=== PATIENT | male | born 1945 | race Caucasian/White ===

== ENCOUNTER 2016-09-09 17:37 | Emergency (ER) | payer MEDICARE, OTHER ==
[~2016-09-09 17:37] MED LIST: ACET325T9 PO; ASPI325T11 PO; ASPI325T70 PO; ATOR40TA PO; BISA5TAB4 PO; BUPR100T6 PO; CETI10TA22 PO; CHOL10003 PO; CLOP75TA57 PO; DIPH25CA58 PO; DIVA125C PO; DIVA125C3 PO; ESOM40CA PO; ESOM40SU PO; FLUT1DIS3 IH; FURO-68 PO; INSU100C4 SQ; INSU100V13 SQ; IPRA3AMP NEB; IPRA3AMP23 IH; LEVO50TA5 PO; MAGN400T22 PO; METO2.5T PO; METO2.5T5 PO; METO5TAB55 PO; MIRT15TA2 PO; MONT10TA9 PO; MULT-245 PO; NA P133E2 RC; NEOM1PAC TP; NITR0.4T22 SL; NYST1POW2 TOP; OMEG1CAP6 PO; ONDA4TAB12 PO; POLY17PO29 PO; POTA10TA12 PO; POTA20TA12 PO; POTA20TA4 PO; POTASSIUM CHLO10 MEQ PO; RANI150T6 PO; RIVA20TA2 PO; SENN8.6C2 PO; SPIR25TA3 PO; TRAM50TA PO; WARF2TAB7 PO; WARF4TAB7 PO; ZINC30OI TP
[2016-09-09] MEDS ORDERED: IV NORMAL SALINE 1000ML BAG 1,000 ML IV SCH (18:30)
[2016-09-09] MEDS ORDERED: KETOROLAC TROMETHAMINE 30 MG/ML INJ. IV ONE (18:30)
[2016-09-09] MEDS ORDERED: ONDANSETRON PF 4 MG/2 ML VIAL. IV ONE (18:30)
[2016-09-09] MEDS ORDERED: IOHEXOL 300 MG/ML 75 ML VIAL IV ONE (19:45)
[2016-09-09] MEDS ORDERED: CONTRAST GIVEN MC PRN (19:45)
[2016-09-09 20:00] VITALS: BP 126/57
--- NOTE | 2016-09-09 20:42 | PHYS DOC ---
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 Patient states he is asymptomatic he has no pain nor does he have any evidence of black or bloody stool. Patient has no nausea vomiting diarrhea or discomfort of any type. He does not feel he needs any workup I would like to follow up with his primary care doctor Review of Systems Review of Systems Constitutional: Denies fever or chills [] Eyes: Denies change in visual acuity, redness, or eye pain [] HENT: Denies nasal congestion or sore throat [] Respiratory: Denies cough or shortness of breath [] Cardiovascular: No additional information not addressed in HPI [] GI: Denies abdominal pain, nausea, vomiting, bloody stools or diarrhea [] : Denies dysuria or hematuria [] Musculoskeletal: Denies back pain or joint pain [] Integument: Denies rash or skin lesions [] Neurologic: Denies headache, focal weakness or sensory changes [] Endocrine: Denies polyuria or polydipsia [] Current Medications Current Medications Current Medications Medications (Trade) Dose Ordered Sig/Vivienne Start Time Stop Time Status Last Admin Dose Admin Info (Do NOT chart on this entry -- for MONITORING) 1 each PRN DAILY PRN 09/09/16 19:45 09/11/16 19:44 Iohexol (Omnipaque 300 Mg/ml) 75 ml 1X ONCE 09/09/16 19:45 09/09/16 19:46 DC Ketorolac Tromethamine (Toradol) 30 mg 1X ONCE 09/09/16 18:30 09/09/16 18:31 DC Ondansetron HCl (Zofran) 4 mg 1X ONCE 09/09/16 18:30 09/09/16 18:31 DC Sodium Chloride 1,000 ml @ 1,000 mls/hr Q1H 09/09/16 18:30 Allergies Allergies Allergies Coded Allergies Type Severity Reaction Last Updated Verified Penicillins Allergy Intermediate Rash 06/25/16 Yes Physical Exam Physical Exam Alert well-appearing male minimally verbal as a baseline. He is communicative and cheerful and able to indicate that he has no discomfort. Patient has mild abdominal distention which he describes as normal for him. an extended abdominal exam is completely benign with normal bowel sounds no tenderness no mass or megaly. Patient has a dense right hemiplegia which is also his neurologic poststroke baseline Constitutional: Well developed, well nourished, no acute distress, non-toxic appearance. [] HENT: Normocephalic, atraumatic, bilateral external ears normal, oropharynx moist, no oral exudates, nose normal. [] Eyes: PERRLA, EOMI, conjunctiva normal, no discharge. [] Neck: Normal range of motion, no tenderness, supple, no stridor. [] Cardiovascular:Heart rate regular rhythm, no murmur [] Lungs & Thorax: Bilateral breath sounds clear to auscultation [] Abdomen: Bowel sounds normal, soft, no tenderness, no masses, no pulsatile masses. [] Skin: Warm, dry, no erythema, no rash. [] Back: No tenderness, no CVA tenderness. [] Extremities: No tenderness, no cyanosis, no clubbing, ROM intact, no edema. [] Neurologic: Alert and oriented X 3, normal motor function, normal sensory function, no focal deficits noted. [] Psychologic: Affect normal, judgement normal, mood normal. [] Current Patient Data Vital Signs Vital Signs Date Time Temp Pulse Resp B/P (MAP) Pulse Ox O2 Delivery O2 Flow Rate FiO2 09/09/16 18:42 98.9 91 21 109/62 (78) 96 Room Air 98.9 EKG EKG [] Radiology/Procedures Radiology/Procedures [] Course & Med Decision Making Course & Med Decision Making Pertinent Labs and Imaging studies reviewed. (See chart for details) Patient with mildly distended abdomen which appears to be his baseline. He is asymptomatic and would like to go back to the prison. Communications with the prison verified the patient is his own medical decision maker and that he is completely competent. Offered patient labs and a CT but he feels this is absolutely not indicated AC he is asymptomatic and is not sure why he was sent. Clinical or historical evidence of GI bleed. Vital signs unremarkable. Patient does not want a rectal exam at this time declines any further workup or intervention and would like to go home. Follow-up with your doctor tomorrow and return immediately for new severe or worsening symptoms [] Dragon Disclaimer Dragon Disclaimer This electronic medical record was generated, in whole or in part, using a voice recognition dictation system. Departure Departure Impression: Primary Impression: Abdominal distention Disposition: HOME, SELF-CARE Condition: GOOD Referrals: ORLANDO CHEEMA (PCP) Additional Instructions: Her abdomen is mildly distended but you have indicated that this is normal for you. As you have no abdominal pain or tenderness and by her description no evidence of gastrointestinal emergency or bleeding, no further workup or treatment is immediately indicated. We have offered U labs and a CAT scan for complete evaluation however you have indicated that you not want any testing or evaluation at this time and will follow up with your primary care doctor. Encourage you to return any time for reevaluation and further workup and treatment as needed. TALON PAIGE MD Sep 09, 2016 20:42
== END 2016-09-09 20:45 | disposition home or self-care (01) ==
LOC: ER 17:37
DX: R14.0 Abdominal distension (gaseous) (principal); F41.9 Anxiety disorder, unspecified; I25.10 Atherosclerotic heart disease of native coronary artery without angina pectoris; I11.0 Hypertensive heart disease with heart failure; I50.9 Heart failure, unspecified; E87.6 Hypokalemia; E11.9 Type 2 diabetes mellitus without complications; E78.00 Pure hypercholesterolemia, unspecified; F32.9 Major depressive disorder, single episode, unspecified; I73.9 Peripheral vascular disease, unspecified; J44.9 Chronic obstructive pulmonary disease, unspecified; K21.9 Gastro-esophageal reflux disease without esophagitis; Z86.73 Personal history of transient ischemic attack (TIA), and cerebral infarction without residual deficits; Z88.0 Allergy status to penicillin
CPT/HCPCS: 99284

== ENCOUNTER 2016-09-26 10:18 | Inpatient (IN) | payer MEDICARE, OTHER ==
[2016-09-26] VITALS (12 sets, daily range): BP systolic 90–117; BP diastolic 53–80
[~2016-09-26] VITALS: Ht 165.1 cm; Wt 85.3 kg
[2016-09-26] MEDS ORDERED: IV NORMAL SALINE 1000ML BAG 1,000 ML IV SCH (10:23)
[2016-09-26] MEDS ORDERED: ONDANSETRON PF 4 MG/2 ML VIAL. IV ONE (10:30)
--- NOTE | 2016-09-26 10:42 | PHYS DOC ---
Past Medical History Past Medical History: Anxiety, CAD, CHF, Constipation, COPD, CVA, Depression, Diabetes-Type II, Diverticulosis, GERD, High Cholesterol, Hypertension, Other Additional Past Medical Histor: internal hemorrhoids, ARF, hypokalemia, dysphagia, PVD, hemiplegia, Past Surgical History: Other Additional Past Surgical Histo: unknown Alcohol Use: None Drug Use: None Adult General Chief Complaint Chief Complaint: RECTAL BLEED HPI HPI Patient is a 70 year old male who presents with complaint of rectal bleeding. The patient started having blood in his stools yesterday evening. Patient brought to the emergency department by EMS from [facility]. Patient has history of CVA with chronic right-sided hemiplegia and A. fib currently on Pradaxa therapy. The patient denies any complaints. Upon evaluation at the nursing facility, the patient was found to have copious amounts of black tarry stool and patient was having increasing lethargy per staff. Patient denies any abdominal pain or chest pain at this time and patient has had no vomiting of blood. Review of Systems Review of Systems Constitutional: Denies fever or chills [] Eyes: Denies change in visual acuity, redness, or eye pain [] HENT: Denies nasal congestion or sore throat [] Respiratory: Denies cough or shortness of breath [] Cardiovascular: Denies chest pain [] GI: Bloody stools, denies abdominal pain, nausea, vomiting, or diarrhea [] : Denies dysuria or hematuria [] Musculoskeletal: Denies back pain or joint pain [] Integument: Denies rash or skin lesions [] Neurologic: Chronic right-sided hemiplegia [] Current Medications Current Medications Current Medications Medications (Trade) Dose Ordered Sig/Vivienne Start Time Stop Time Status Last Admin Dose Admin Ondansetron HCl (Zofran) 4 mg 1X ONCE 09/26/16 10:30 09/26/16 10:31 DC 09/26/16 10:51 4 MG Sodium Chloride 1,000 ml @ 1,000 mls/hr Q1H 09/26/16 10:23 09/26/16 11:22 DC 09/26/16 10:23 1,000 MLS/HR Allergies Allergies Allergies Coded Allergies Type Severity Reaction Last Updated Verified Penicillins Allergy Intermediate Rash 06/25/16 Yes Physical Exam Physical Exam Constitutional: Alert, afebrile, appears ill. [] HENT: Normocephalic, atraumatic, bilateral external ears normal, oropharynx moist, no oral exudates, nose normal. [] Eyes: PERRLA, EOMI, conjunctiva normal, no discharge. [] Neck: Normal range of motion, no tenderness, supple, no stridor. [] Cardiovascular: Tachycardia, regular rhythm, no murmur [] Lungs & Thorax: Bilateral breath sounds clear to auscultation [] Abdomen: Bowel sounds normal, soft, no tenderness, no masses, no pulsatile masses. Rectal: Copious melanotic stools present, nontender on exam, no gross blood present [] Skin: Warm, dry, no erythema, no rash. [] Back: No tenderness, no CVA tenderness. [] Extremities: No tenderness, no cyanosis, no clubbing, ROM intact, no edema. [] Neurologic: Alert and oriented X 3, right-sided spastic hemiplegia. [] Current Patient Data Vital Signs Vital Signs Date Time Temp Pulse Resp B/P (MAP) Pulse Ox O2 Delivery O2 Flow Rate FiO2 09/26/16 10:20 98.5 94 22 84/74 (77) 95 Room Air 98.5 Lab Values Laboratory Tests Test 09/26/16 10:32 09/26/16 10:35 White Blood Count 10.8 x10^3/uL (4.0-11.0) Red Blood Count 3.36 x10^6/uL (4.30-5.70) L Hemoglobin 8.7 g/dL (13.0-17.5) L Hematocrit 26.5 % (39.0-53.0) L Mean Corpuscular Volume 79 fL (79-100) Mean Corpuscular Hemoglobin 26 pg (25-35) Mean Corpuscular Hemoglobin Concent 33 g/dL (31-37) Red Cell Distribution Width 16.8 % (11.5-14.5) H Platelet Count 503 x10^3/uL (140-400) H Neutrophils (%) (Auto) 65 % (31-73) Lymphocytes (%) (Auto) 22 % (24-48) L Monocytes (%) (Auto) 12 % (0-9) H Eosinophils (%) (Auto) 1 % (0-3) Basophils (%) (Auto) 1 % (0-3) Neutrophils # (Auto) 7.0 x10^3uL (1.8-7.7) Lymphocytes # (Auto) 2.3 x10^3/uL (1.0-4.8) Monocytes # (Auto) 1.3 x10^3/uL (0.0-1.1) H Eosinophils # (Auto) 0.1 x10^3/uL (0.0-0.7) Basophils # (Auto) 0.1 x10^3/uL (0.0-0.2) Prothrombin Time 15.4 SEC (11.7-14.0) H Prothrombin Time INR 1.3 (0.8-1.1) H PTT 42 SEC (24-38) H Sodium Level 135 mmol/L (136-145) L Potassium Level 4.2 mmol/L (3.5-5.1) Chloride Level 100 mmol/L (98-107) Carbon Dioxide Level 27 mmol/L (21-32) Anion Gap 8 (6-14) Blood Urea Nitrogen 29 mg/dL (8-26) H Creatinine 1.6 mg/dL (0.7-1.3) H Estimated GFR (Cockcroft-Gault) 42.7 BUN/Creatinine Ratio 18 (6-20) Glucose Level 99 mg/dL (70-99) Calcium Level 8.0 mg/dL (8.5-10.1) L Total Bilirubin 0.3 mg/dL (0.2-1.0) Aspartate Amino Transferase (AST) 25 U/L (15-37) Alanine Aminotransferase (ALT) 21 U/L (16-63) Alkaline Phosphatase 107 U/L (46-116) Total Protein 7.6 g/dL (6.4-8.2) Albumin 2.3 g/dL (3.4-5.0) L Albumin/Globulin Ratio 0.4 (1.0-1.7) L Lipase 166 U/L (73-393) Stool Occult Blood Positive (NEG) Laboratory Tests 09/26/16 10:32 Laboratory Tests 09/26/16 10:32 EKG EKG Heart rate 96, sinus rhythm, leftward axis, no acute ST/T-wave abnormalities present [] Radiology/Procedures Radiology/Procedures Not performed [] Course & Med Decision Making Course & Med Decision Making Pertinent Labs and Imaging studies reviewed. (See chart for details) Patient started on IV fluids in the emergency department due to low systolic blood pressure of 85. Patient has evidence of melena on rectal exam. Given patient's tachycardia and low blood pressure, patient is showing signs of hemodynamic instability likely related to acute GI bleeding. The patient's blood pressure improved with administration of IV fluids. Spoke with Argenis Nelson, advanced practice provider for Dr. Sweet of gastroenterology who came in initially evaluated the patient in the emergency department. She agreed with initial management including initiation of Protonix drip and stated they would follow with patient in hospital. The patient was admitted to Dr. Tierney under ICU care. Dragon Disclaimer Dragon Disclaimer This electronic medical record was generated, in whole or in part, using a voice recognition dictation system. Departure Departure Impression: Primary Impression: Acute GI bleeding Additional Impressions: Hemodynamic instability Severe protein-calorie malnutrition Disposition: ADMITTED INPATIENT Admitting Physician: Renetta Rodriguez Condition: GUARDED Referrals: ORLANDO CHEEMA (PCP) Problem Qualifiers ANDRES LAGUNA MD Sep 26, 2016 10:42
[2016-09-26] MEDS ORDERED: PANTOPRAZOLE IV PUSH 40 MG VIAL. IVP ONE (10:49)
--- NOTE | 2016-09-26 10:59 | EKG ---
[facility] [address] [place] [address] Test Date: 2016-09-26 Test Time: 10:39:15 Pat Name: ELIANA HARDIN Department: Room: Gender: M Road Monkey: : 1945 Requested By: ANDRES LAGUNA Order Number: [id number] Reading MD: Michelet Georges Measurements Intervals [place] Rate: 96 P: 11 RI: 164 QRS: -11 QRSD: 84 T: 34 QT: 378 QTc: 485 Interpretive Statements SINUS RHYTHM LEFTWARD AXIS NON-SPECIFIC ST/T CHANGES Electronically Signed On 09-26-2016 14:33:21 CDT by Michelet Georges
[2016-09-26] MEDS ORDERED: PANTOPRAZOLE SODIUM IV 80 MG in IV NORMAL SALINE 100ML 100 ML IV ONE (11:00)
[2016-09-26 11:06] LABS: BASO # 0.1 x10^3/uL (0.0-0.2); BASO % 1 % (0-3); EOS % 1 % (0-3); HEMATOCRIT 26.5 % (39.0-53.0); HEMOGLOBIN 8.7 g/dL (13.0-17.5); LYMPH # 2.3 x10^3/uL (1.0-4.8); LYMPH % 22 % (24-48); MEAN CORPUSCULAR HEMOGLOBIN 26 pg (25-35); MEAN CORPUSCULAR HGB CONC 33 g/dL (31-37); MEAN CORPUSCULAR VOLUME 79 fL (79-100); MONO % 12 % (0-9); NEUT % 65 % (31-73); PLATELET COUNT 503 x10^3/uL (140-400); RED BLOOD COUNT 3.36 x10^6/uL (4.30-5.70); RED CELL DISTRIBUTION WIDTH 16.8 % (11.5-14.5); WHITE BLOOD COUNT 10.8 x10^3/uL (4.0-11.0)
[2016-09-26 11:07] LABS: CREATININE 1.6 mg/dL (0.7-1.3); GFR 42.7; POTASSIUM 4.2 mmol/L (3.5-5.1)
[2016-09-26 11:24] LABS: ALBUMIN 2.3 g/dL (3.4-5.0); ALBUMIN/GLOBULIN RATIO 0.4 (1.0-1.7); TOTAL BILIRUBIN 0.3 mg/dL (0.2-1.0); TOTAL PROTEIN 7.6 g/dL (6.4-8.2)
[2016-09-26 11:29] LABS: INR 1.3 (0.8-1.1); PROTHROMBIN TIME PATIENT 15.4 SEC (11.7-14.0)
[2016-09-26] MEDS: IV NORMAL SALINE 1000ML BAG 1,000 ML IV SCH ×2 (11:34→22:37)
[2016-09-26 11:39] LABS: NEG OBC FOB NEG; POS OBC FOB POS
[2016-09-26] MEDS ORDERED: ACETAMINOPHEN 325 MG TABLET. PO PRN ×2 (11:45→14:00)
[2016-09-26] MEDS ORDERED: ONDANSETRON PF 4 MG/2 ML VIAL. IV PRN ×2 (11:45→14:00)
[2016-09-26] MEDS ORDERED: [UNRECOGNIZED DRUG - CODE] TP (12:29)
[2016-09-26] MEDS ORDERED: FERR-26 PO (12:29)
[2016-09-26] MEDS ORDERED: DABI150C PO (12:29)
--- NOTE | 2016-09-26 13:40 | PDOC2 ---
GI CONSULT Reason For Consult: Acute GI Bleeding HPI: HPI: 70 y/o known to GI. EGD by Dr. Martines in 06/2016 for SALOMÓN w/ non-erosive gastritis. Hgb improved last admission w/ transfusion and IV iron. Saw hematology as well. Had negative GI bleeding scan. Was advised to DC on PPI and iron, unclear if either continued. Hgb on discharge was 9.2. Last colonoscopy by Dr. Tierney in 01/2013 w/ diverticulosis, internal hemorrhoids, melanosis, and redundancy. Today brought to ER from living facility, reports of passing bright red blood per rectum yesterday. D/w ER physician, concern for melena as well. Per RN in ICU, had stool in briefs, brown w/o any blood. Hgb this time is 8.7. INR 1.3, BUN 29, Cr 1.6, hemoccult positive stool. Some hypotension improved w/ fluids. Pt reports passing bright red stool once, had diarrhea previous to this. Denies n/v, reflux/heartburn, dysphagia, abd pain, constipation, and melena. Denies ASA and NSAID use. H/o A Fib and CVA on Xarelto (?Pradaxa). Family concerned w/ recurrent bleeding /anemia. PMH: PMH: A Fib, CAD, CHF, HTN, HLD, PE, COPD, CVA w/ RUE contracture, CKD, diverticulosis , hemorrhoids, dysphagia, PVD, anxiety/depression, DM, appendectomy, tonsillectomy, prior PEG (h/o dysphagia on [facility] [employer] soft diet and aspiration pneumonia) FH: Family History: No pertinent hx Social History: Smoke: No ALCOHOL: none Drugs: Other (cocaine and marijuana in the past) ROS: GEN: Denies fevers, chills, sweats HEENT: Denies blurred vision, sore throat CV: Denies chest pain RESP: Denies shortness of air, cough GI: Per HPI : Denies hematuria, dysuria ENDO: Denies weight changes NEURO: Denies confusion, dizziness MSK: Denies weakness, joint pain/swelling SKIN: Denies jaundice, pruritus Vitals: Vitals: Vital Signs Date Time Temp Pulse Resp B/P (MAP) Pulse Ox O2 Delivery O2 Flow Rate FiO2 09/26/16 11:06 89 21 103/62 (76) 94 Room Air 09/26/16 10:20 98.5 98.5 Labs: Labs: Laboratory Tests Test 09/26/16 10:32 09/26/16 10:35 White Blood Count 10.8 x10^3/uL (4.0-11.0) Red Blood Count 3.36 x10^6/uL (4.30-5.70) Hemoglobin 8.7 g/dL (13.0-17.5) Hematocrit 26.5 % (39.0-53.0) Mean Corpuscular Volume 79 fL (79-100) Mean Corpuscular Hemoglobin 26 pg (25-35) Mean Corpuscular Hemoglobin Concent 33 g/dL (31-37) Red Cell Distribution Width 16.8 % (11.5-14.5) Platelet Count 503 x10^3/uL (140-400) Neutrophils (%) (Auto) 65 % (31-73) Lymphocytes (%) (Auto) 22 % (24-48) Monocytes (%) (Auto) 12 % (0-9) Eosinophils (%) (Auto) 1 % (0-3) Basophils (%) (Auto) 1 % (0-3) Neutrophils # (Auto) 7.0 x10^3uL (1.8-7.7) Lymphocytes # (Auto) 2.3 x10^3/uL (1.0-4.8) Monocytes # (Auto) 1.3 x10^3/uL (0.0-1.1) Eosinophils # (Auto) 0.1 x10^3/uL (0.0-0.7) Basophils # (Auto) 0.1 x10^3/uL (0.0-0.2) Prothrombin Time 15.4 SEC (11.7-14.0) Prothromb Time International Ratio 1.3 (0.8-1.1) Activated Partial Thromboplast Time 42 SEC (24-38) Sodium Level 135 mmol/L (136-145) Potassium Level 4.2 mmol/L (3.5-5.1) Chloride Level 100 mmol/L (98-107) Carbon Dioxide Level 27 mmol/L (21-32) Anion Gap 8 (6-14) Blood Urea Nitrogen 29 mg/dL (8-26) Creatinine 1.6 mg/dL (0.7-1.3) Estimated GFR (Cockcroft-Gault) 42.7 BUN/Creatinine Ratio 18 (6-20) Glucose Level 99 mg/dL (70-99) Calcium Level 8.0 mg/dL (8.5-10.1) Total Bilirubin 0.3 mg/dL (0.2-1.0) Aspartate Amino Transf (AST/SGOT) 25 U/L (15-37) Alanine Aminotransferase (ALT/SGPT) 21 U/L (16-63) Alkaline Phosphatase 107 U/L (46-116) Total Protein 7.6 g/dL (6.4-8.2) Albumin 2.3 g/dL (3.4-5.0) Albumin/Globulin Ratio 0.4 (1.0-1.7) Lipase 166 U/L (73-393) Stool Occult Blood Positive (NEG) Allergies: Coded Allergies: Penicillins (Verified Allergy, Intermediate, Rash, 06/25/16) Medications: Current Medications Medications (Trade) Dose Ordered Sig/Vivienne Route PRN Reason Start Time Stop Time Status Last Admin Dose Admin Sodium Chloride 1,000 ml @ 1,000 mls/hr Q1H IV 09/26/16 10:23 09/26/16 11:22 DC 09/26/16 10:23 Ondansetron HCl (Zofran) 4 mg 1X ONCE IV 09/26/16 10:30 09/26/16 10:31 DC 09/26/16 10:51 Pantoprazole Sodium 80 mg/ Sodium Chloride 100 ml @ 10 mls/hr 1X ONCE IV 09/26/16 11:00 09/26/16 20:59 09/26/16 10:51 Imaging: Imaging: - PE: GEN: NAD HEENT: Atraumatic, PERRL LUNGS: clear HEART:tachy ABD: NABS, S/ND/NT EXTREMITY: trace BLE edema, BUE contracture SKIN: No rashes, no jaundice NEURO/PSYCH: A & O 3 A/P: A/P: SALOMÓN, rectal bleeding, hemoccult positive stool -BRBPR x 1 at living facility, normal stool in ICU -h/o anemia, EGD for this in 06/2016 w/ non-erosive gastritis ---> also saw hematology ---> advised to continue PPI and iron -on Xarelto -last Hgb 9.2, today 8.7; noted w/ hypotension in ER which has improved -last colonoscopy 01/2013: diverticulosis, internal hemorrhoids, melanosis, and redundancy -- Keep NPO for now, continue IV PPI. Bleeding scan. JEFFERSON DIAZ Sep 26, 2016 13:40
[2016-09-26] MEDS ORDERED: POLYETHYLENE GLYCOL 3350 17 GM PACKET. PO PRN (14:00)
[2016-09-26] MEDS ORDERED: NITROGLYCERIN SUBLINGUAL 0.4 MG BOTTLE OF 25. SL PRN (14:00)
[2016-09-26] MEDS ORDERED: diphenhydrAMINE HCL 25 MG CAPSULE PO PRN (14:00)
[2016-09-26] MEDS ORDERED: ONDANSETRON ODT 4 MG TAB.RAPDIS. PO PRN (14:00)
[2016-09-26] MEDS ORDERED: SODIUM PHOSPHATES 19/7GM 133 ML ENEMA. RC PRN (14:00)
--- NOTE | 2016-09-26 14:22 | PDOC1 ---
EFRA CARRASQUILLO MUSIC MINISTRIES DIRECTOR 09/26/16 1422: HISTORY AND PHYSICAL Chief Complaint Chief Complaint This 70 year old male has been admitted with a chief complaint of rectal bleeding. He is a resident at [facility]. In June this year he was admitted for acute blood loss anemia. EGD non erosive gastritis. He recieved 4 unit PRC and IV iron and at the time of discharge his Hgb was 9.2. He was seen in the ED for report from OR of rectal bleeding that was bright red. Kristofer reports one episode after onset diarrhea. In the ED an occult blood was +. His Hgb is 8.7. He is admitted to the ICU for serial hemogram and close monitoring. He was hypotensive in the ED and has received 1L IVF. 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; bilateral foot drop, expressive aphasia and dysphagia on [facility] soft diet/thin liquids ), Other GI: Constipation, Diverticulosis (h/o large intestine ), GERD (w/o esophagitis ), GI bleed (h/o GI Bleed june 2016 with PRC and IV iron infusion ), Gastritis (non erosive June 2016 EGD ), Hemorrhoids (internal ), Other Psych: Anxiety (generalized anxiety disorder), Depression (major depression single episode) Musculoskeletal: Other Renal/: Chronic renal insuff (CKD III ), Urinary Incontinence Endocrine: Diabetes, Hypothyroidism, Other Past Surgical History PSH EGD june 2016 non erosive gastritis Past Surgical History: Appendectomy, Tonsillectomy Past Family History Family History: No Significant Review of Symptoms Review of Symptoms A 14 point ROS was completed with the following noted as positive: rectal bleeding x 1 Other systems reviewed and negative. Medications Medications reviewed and reconciled. Allergy Allergies Coded Allergies Type Severity Reaction Last Updated Verified Penicillins Allergy Intermediate Rash 06/25/16 Yes Physical Exam Physical Exam General appearance - alert chronically ill appearing, and in no distress Mental Status - alert, oriented to person, place, and time, affect appropriate to mood Head - normal Chest - clear to auscultation, no wheezes, rales or rhonchi Heart - S1 and S2 normal Abdomen - soft, nontender, nondistended, BS+ Neurological - no acute focal neurological deficits noted. H/O CVA with residual R sided hemiparesis, R hand elbow contracture, and bilateral foot drop. Also with expressive aphasia Musculoskeletal - no muscular tenderness noted Extremities - no pedal edema Skin - warm and dry VTE Prophylaxis Ordered VTE Prophylaxis Devices: Yes VTE Pharmacological Prophylaxi: No Assessment Labs Laboratory Tests Test 09/26/16 10:32 09/26/16 10:35 White Blood Count 10.8 x10^3/uL (4.0-11.0) Red Blood Count 3.36 x10^6/uL (4.30-5.70) Hemoglobin 8.7 g/dL (13.0-17.5) Hematocrit 26.5 % (39.0-53.0) Mean Corpuscular Volume 79 fL (79-100) Mean Corpuscular Hemoglobin 26 pg (25-35) Mean Corpuscular Hemoglobin Concent 33 g/dL (31-37) Red Cell Distribution Width 16.8 % (11.5-14.5) Platelet Count 503 x10^3/uL (140-400) Neutrophils (%) (Auto) 65 % (31-73) Lymphocytes (%) (Auto) 22 % (24-48) Monocytes (%) (Auto) 12 % (0-9) Eosinophils (%) (Auto) 1 % (0-3) Basophils (%) (Auto) 1 % (0-3) Neutrophils # (Auto) 7.0 x10^3uL (1.8-7.7) Lymphocytes # (Auto) 2.3 x10^3/uL (1.0-4.8) Monocytes # (Auto) 1.3 x10^3/uL (0.0-1.1) Eosinophils # (Auto) 0.1 x10^3/uL (0.0-0.7) Basophils # (Auto) 0.1 x10^3/uL (0.0-0.2) Prothrombin Time 15.4 SEC (11.7-14.0) Prothromb Time International Ratio 1.3 (0.8-1.1) Activated Partial Thromboplast Time 42 SEC (24-38) Sodium Level 135 mmol/L (136-145) Potassium Level 4.2 mmol/L (3.5-5.1) Chloride Level 100 mmol/L (98-107) Carbon Dioxide Level 27 mmol/L (21-32) Anion Gap 8 (6-14) Blood Urea Nitrogen 29 mg/dL (8-26) Creatinine 1.6 mg/dL (0.7-1.3) Estimated GFR (Cockcroft-Gault) 42.7 BUN/Creatinine Ratio 18 (6-20) Glucose Level 99 mg/dL (70-99) Calcium Level 8.0 mg/dL (8.5-10.1) Total Bilirubin 0.3 mg/dL (0.2-1.0) Aspartate Amino Transf (AST/SGOT) 25 U/L (15-37) Alanine Aminotransferase (ALT/SGPT) 21 U/L (16-63) Alkaline Phosphatase 107 U/L (46-116) Total Protein 7.6 g/dL (6.4-8.2) Albumin 2.3 g/dL (3.4-5.0) Albumin/Globulin Ratio 0.4 (1.0-1.7) Lipase 166 U/L (73-393) Stool Occult Blood Positive (NEG) Laboratory Tests Test 09/26/16 10:32 09/26/16 10:35 White Blood Count 10.8 x10^3/uL (4.0-11.0) Red Blood Count 3.36 x10^6/uL (4.30-5.70) Hemoglobin 8.7 g/dL (13.0-17.5) Hematocrit 26.5 % (39.0-53.0) Mean Corpuscular Volume 79 fL (79-100) Mean Corpuscular Hemoglobin 26 pg (25-35) Mean Corpuscular Hemoglobin Concent 33 g/dL (31-37) Red Cell Distribution Width 16.8 % (11.5-14.5) Platelet Count 503 x10^3/uL (140-400) Neutrophils (%) (Auto) 65 % (31-73) Lymphocytes (%) (Auto) 22 % (24-48) Monocytes (%) (Auto) 12 % (0-9) Eosinophils (%) (Auto) 1 % (0-3) Basophils (%) (Auto) 1 % (0-3) Neutrophils # (Auto) 7.0 x10^3uL (1.8-7.7) Lymphocytes # (Auto) 2.3 x10^3/uL (1.0-4.8) Monocytes # (Auto) 1.3 x10^3/uL (0.0-1.1) Eosinophils # (Auto) 0.1 x10^3/uL (0.0-0.7) Basophils # (Auto) 0.1 x10^3/uL (0.0-0.2) Prothrombin Time 15.4 SEC (11.7-14.0) Prothromb Time International Ratio 1.3 (0.8-1.1) Activated Partial Thromboplast Time 42 SEC (24-38) Sodium Level 135 mmol/L (136-145) Potassium Level 4.2 mmol/L (3.5-5.1) Chloride Level 100 mmol/L (98-107) Carbon Dioxide Level 27 mmol/L (21-32) Anion Gap 8 (6-14) Blood Urea Nitrogen 29 mg/dL (8-26) Creatinine 1.6 mg/dL (0.7-1.3) Estimated GFR (Cockcroft-Gault) 42.7 BUN/Creatinine Ratio 18 (6-20) Glucose Level 99 mg/dL (70-99) Calcium Level 8.0 mg/dL (8.5-10.1) Total Bilirubin 0.3 mg/dL (0.2-1.0) Aspartate Amino Transf (AST/SGOT) 25 U/L (15-37) Alanine Aminotransferase (ALT/SGPT) 21 U/L (16-63) Alkaline Phosphatase 107 U/L (46-116) Total Protein 7.6 g/dL (6.4-8.2) Albumin 2.3 g/dL (3.4-5.0) Albumin/Globulin Ratio 0.4 (1.0-1.7) Lipase 166 U/L (73-393) Stool Occult Blood Positive (NEG) Plan Plan 1. GIB with rectal bleeding 2. hypotension due to vascular volume depletion 3. DM II with PVD chronic insulin 4. CHF diastolic with normal EF 5. AF on Pradaxa 6. CAD on chronic ASA 325mg 7. HTN 8. h/o GIB June 2016 requiring PRC 9. non erosive gastritis 10. COPD 11. 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 diverticulosis large colon 14. internal hemorrhoids 15. BI 16. depression 17. Vitamin D def 18. h/o PE 19. moderate chronic PCL malnutrition PLAN: anemia gastroenterology consult type and screen Admit Hgb 8.7 serial hemogram HTN with hypotension IVF NS 125cc/hr decrease to 100cc/hr 1L NS in ED 09/26 hold zaroxlyn chronic med CHF diastolic IO daily weight Admit wt 195# DM II FSBS SSI Levemir 10u at hs CAD ASA 325mg on hold AF rate controlled Pradaxa on hold CKD III Admit BUN 29 Cr 1.6 DVT/GI prophylaxis SCD/GALINA PPI For more details regarding further plans, please refer to the orders. MERVAT MROE MD 09/26/16 1721: HISTORY AND PHYSICAL Plan Plan The patient was seen and examined by me. Chart reviewed and plan of care formulated. Discussed with, reviewed and agree with MACH[employer] FORMER's notes, plan of care and orders with modifications as necessary. For more details regarding further plans, please refer to the orders. EFRA CARRASQUILLO APRN Sep 26, 2016 14:22 MERVAT MORE MD Sep 26, 2016 17:21
[2016-09-26] MEDS ORDERED: ALBUTEROL SULFATE 2.5 MG/3 ML NEBU. NEB PRN (14:30)
[2016-09-26] MEDS: INSULIN ASPART 300 UNITS/3 ML INSULN.PEN SQ SCH (16:30)
[2016-09-26] MEDS: VITAMIN B COMPLEX TABLET. PO SCH (18:12)
[2016-09-26] MEDS: METOCLOPRAMIDE 5 MG TABLET. PO SCH (18:13)
[2016-09-26] MEDS: SENNOSIDES 8.6 MG TABLET PO SCH ×2 (18:13→21:00)
[2016-09-26 19:25] LABS: HEMATOCRIT 29.3 % (39.0-53.0); HEMOGLOBIN 9.3 g/dL (13.0-17.5); RED BLOOD COUNT 3.63 x10^6/uL (4.30-5.70); RED CELL DISTRIBUTION WIDTH 17.1 % (11.5-14.5); WHITE BLOOD COUNT 11.4 x10^3/uL (4.0-11.0)
[2016-09-26] MEDS: IPRATRPIUM/ALBUTEROL 0.5/2.5MG 3 ML NEBU. IH SCH (20:00)
[2016-09-26] MEDS: MONTELUKAST SODIUM 10 MG TABLET. PO SCH (20:50)
[2016-09-26] MEDS: ATORVASTATIN CALCIUM 40 MG TABLET. PO SCH (20:50)
[2016-09-26] MEDS: NYSTATIN TOPICAL POWDER 15GM BOTTLE. TP SCH (20:50)
[2016-09-26] MEDS: SPIRONOLACTONE 25 MG TABLET PO SCH (20:50)
[2016-09-26] MEDS: DIVALPROEX SPRINKLES 125 MG CAPSULE. PO SCH (20:50)
[2016-09-26] MEDS: MIRTAZAPINE 7.5 MG TABLET. PO SCH (20:50)
[2016-09-26] MEDS: MAGNESIUM OXIDE 400 MG TABLET PO SCH (20:50)
[2016-09-26] MEDS: INSULIN DETEMIR 300 UNITS/3 ML INSULN.PEN. SQ SCH (20:51)
[2016-09-27] VITALS (23 sets, daily range): BP systolic 82–109; BP diastolic 50–66
--- NOTE | 2016-09-27 00:24 | ACF ---
Admission Forms Criteria GASTROINTESTINAL BLEEDING Clinical Indications for Inpatient Care (Place 'X' for any and all applicable criteria): Ongoing inpatient care may be indicated for gastrointestinal bleeding with ANY ONE of the following (4)(20)(21)(22)(23)(24): [ ]I. Active bleeding (eg, fresh voluminous blood in emesis or nasogastric aspirate, or per rectum) [X]II. Hemodynamic instability [ ]III. Anticoagulation therapy or coagulopathy ((eg, advanced liver disease, irreversible anticoagulation) [ ]IV. Ischemic colitis (22) [ ]V. Endoscopy showing arterial bleeding, adherent clot, nonbleeding visible vessel, varices, flat red spots, ulcer size greater than 2 cm, or portal hypertensive gastropathy [ ]. High-risk low platelet count [ ]VII. Anemia requiring inpatient care as indicated by ANY ONE of the following a)[ ] Cognitive impairment b)[ ] Syncope c)[ ] Heart failure d)[ ] Chest pain e)[ ] Dyspnea f)[ ] Other findings suggesting inadequate perfusion (eg, peripheral or myocardial ischemia, end organ dysfunction) [ ]VIII. High-risk low platelet count [ ]IX. Suspected variceal cause of bleeding as indicated by ANY ONE of the following(27)(28): a)[ ] Known varices b)[ ] Hepatomegaly or splenomegaly c)[ ] Ascites d)[ ] Jaundice or scleral icterus e)[ ] History of liver disease (eg, cirrhosis) f)[ ] Physical findings of portal hypertension (eg, caput medusa) g)[ ] Comorbid disorder indicating risk for portal vein thrombosis (eg , abdominal surgery, sepsis, shock, exchange transfusion, prior umbilical vein catheterization) Extended stay may be needed until ALL of the following are present(20)(38)(47): [ ]a) Hemodynamic stability [ ]b) No evidence of active bleeding (eg, stable Hematocrit) [ ]c) Platelet count, prothrombin time, and partial thromboplastin time acceptable for next level of care [ ]d) Surgical or other acute intervention not needed [ ]e) Oral hydration and diet tolerated The original [employer] content created by [employer] has been revised. The portions of the content which have been revised are identified through the use of italic text or in bold, and [employer] has neither reviewed nor approved the modified material. All other unmodified content is copyright [facility]. Please see references footnoted in the original [facility] edition 2016 Admission Criteria Met?: Yes AIRAM FLOYD Sep 27, 2016 00:24
[2016-09-27 05:43] LABS: BASO # 0.1 x10^3/uL (0.0-0.2); BASO % 1 % (0-3); EOS % 1 % (0-3); HEMOGLOBIN 8.1 g/dL (13.0-17.5); LYMPH # 2.1 x10^3/uL (1.0-4.8); LYMPH % 21 % (24-48); MEAN CORPUSCULAR HEMOGLOBIN 27 pg (25-35); MEAN CORPUSCULAR HGB CONC 34 g/dL (31-37); MEAN CORPUSCULAR VOLUME 79 fL (79-100); MONO % 12 % (0-9); NEUT % 65 % (31-73); PLATELET COUNT 455 x10^3/uL (140-400); RED BLOOD COUNT 3.03 x10^6/uL (4.30-5.70); WHITE BLOOD COUNT 9.9 x10^3/uL (4.0-11.0)
[2016-09-27] MEDS: IV NORMAL SALINE 1000ML BAG 1,000 ML IV SCH (06:16)
[2016-09-27 06:18] LABS: CALCIUM 7.5 mg/dL (8.5-10.1); CREATININE 1.4 mg/dL (0.7-1.3); GFR 49.8; POTASSIUM 3.8 mmol/L (3.5-5.1)
[2016-09-27] MEDS: INSULIN ASPART 300 UNITS/3 ML INSULN.PEN SQ SCH ×3 (07:30→17:10)
--- NOTE | 2016-09-27 08:06 | PDOC ---
EFRA CARRASQUILLO GLAZE CARRIER 09/27/16 0806: IM PROGRESS NOTES- Subjective Subjective sad, wants to go home ([facility]) Objective Objective alert appropriate Vitals Vital Signs Date Time Temp Pulse Resp B/P (MAP) Pulse Ox O2 Delivery O2 Flow Rate FiO2 09/27/16 06:00 89 16 101/58 (72) 92 Room Air 09/27/16 04:00 99.2 99.2 Input & Output Intake and Output 09/27/16 07:00 Intake Total 2120 ml Output Total 8 ml Balance 2112 ml Intake Oral 20 ml IV Total 2100 ml Output Urine Total 8 ml # Bowel Movements 6 Physical Exam Physical Exam General appearance - alert chronically ill appearing, and in no distress Mental Status - alert, oriented to person, place, and time, affect appropriate to mood Head - normal Chest - clear to auscultation, no wheezes, rales or rhonchi Heart - S1 and S2 normal Abdomen - soft, nontender, nondistended, BS+ Neurological - no acute focal neurological deficits noted. H/O CVA with residual R sided hemiparesis, R hand elbow contracture, and bilateral foot drop. Also with expressive aphasia Musculoskeletal - no muscular tenderness noted Extremities - no pedal edema Skin - warm and dry Labs Laboratory Tests Test 09/26/16 10:32 09/26/16 10:35 09/26/16 18:11 09/26/16 19:10 White Blood Count 10.8 x10^3/uL (4.0-11.0) 11.4 x10^3/uL (4.0-11.0) Red Blood Count 3.36 x10^6/uL (4.30-5.70) 3.63 x10^6/uL (4.30-5.70) Hemoglobin 8.7 g/dL (13.0-17.5) 9.3 g/dL (13.0-17.5) Hematocrit 26.5 % (39.0-53.0) 29.3 % (39.0-53.0) Mean Corpuscular Volume 79 fL (79-100) 81 fL (79-100) Mean Corpuscular Hemoglobin 26 pg (25-35) 26 pg (25-35) Mean Corpuscular Hemoglobin Concent 33 g/dL (31-37) 32 g/dL (31-37) Red Cell Distribution Width 16.8 % (11.5-14.5) 17.1 % (11.5-14.5) Platelet Count 503 x10^3/uL (140-400) 509 x10^3/uL (140-400) Neutrophils (%) (Auto) 65 % (31-73) Lymphocytes (%) (Auto) 22 % (24-48) Monocytes (%) (Auto) 12 % (0-9) Eosinophils (%) (Auto) 1 % (0-3) Basophils (%) (Auto) 1 % (0-3) Neutrophils # (Auto) 7.0 x10^3uL (1.8-7.7) Lymphocytes # (Auto) 2.3 x10^3/uL (1.0-4.8) Monocytes # (Auto) 1.3 x10^3/uL (0.0-1.1) Eosinophils # (Auto) 0.1 x10^3/uL (0.0-0.7) Basophils # (Auto) 0.1 x10^3/uL (0.0-0.2) Prothrombin Time 15.4 SEC (11.7-14.0) Prothromb Time International Ratio 1.3 (0.8-1.1) Activated Partial Thromboplast Time 42 SEC (24-38) Sodium Level 135 mmol/L (136-145) Potassium Level 4.2 mmol/L (3.5-5.1) Chloride Level 100 mmol/L (98-107) Carbon Dioxide Level 27 mmol/L (21-32) Anion Gap 8 (6-14) Blood Urea Nitrogen 29 mg/dL (8-26) Creatinine 1.6 mg/dL (0.7-1.3) Estimated GFR (Cockcroft-Gault) 42.7 BUN/Creatinine Ratio 18 (6-20) Glucose Level 99 mg/dL (70-99) Calcium Level 8.0 mg/dL (8.5-10.1) Total Bilirubin 0.3 mg/dL (0.2-1.0) Aspartate Amino Transf (AST/SGOT) 25 U/L (15-37) Alanine Aminotransferase (ALT/SGPT) 21 U/L (16-63) Alkaline Phosphatase 107 U/L (46-116) Total Protein 7.6 g/dL (6.4-8.2) Albumin 2.3 g/dL (3.4-5.0) Albumin/Globulin Ratio 0.4 (1.0-1.7) Lipase 166 U/L (73-393) Stool Occult Blood Positive (NEG) Glucose (Fingerstick) 103 mg/dL (70-99) Test 09/26/16 20:49 09/27/16 05:00 Glucose (Fingerstick) 128 mg/dL (70-99) White Blood Count 9.9 x10^3/uL (4.0-11.0) Red Blood Count 3.03 x10^6/uL (4.30-5.70) Hemoglobin 8.1 g/dL (13.0-17.5) Hematocrit 24.0 % (39.0-53.0) Mean Corpuscular Volume 79 fL (79-100) Mean Corpuscular Hemoglobin 27 pg (25-35) Mean Corpuscular Hemoglobin Concent 34 g/dL (31-37) Red Cell Distribution Width 17.0 % (11.5-14.5) Platelet Count 455 x10^3/uL (140-400) Neutrophils (%) (Auto) 65 % (31-73) Lymphocytes (%) (Auto) 21 % (24-48) Monocytes (%) (Auto) 12 % (0-9) Eosinophils (%) (Auto) 1 % (0-3) Basophils (%) (Auto) 1 % (0-3) Neutrophils # (Auto) 6.5 x10^3uL (1.8-7.7) Lymphocytes # (Auto) 2.1 x10^3/uL (1.0-4.8) Monocytes # (Auto) 1.1 x10^3/uL (0.0-1.1) Eosinophils # (Auto) 0.1 x10^3/uL (0.0-0.7) Basophils # (Auto) 0.1 x10^3/uL (0.0-0.2) Sodium Level 137 mmol/L (136-145) Potassium Level 3.8 mmol/L (3.5-5.1) Chloride Level 105 mmol/L (98-107) Carbon Dioxide Level 24 mmol/L (21-32) Anion Gap 8 (6-14) Blood Urea Nitrogen 25 mg/dL (8-26) Creatinine 1.4 mg/dL (0.7-1.3) Estimated GFR (Cockcroft-Gault) 49.8 Glucose Level 92 mg/dL (70-99) Calcium Level 7.5 mg/dL (8.5-10.1) Magnesium Level 2.0 mg/dL (1.8-2.4) Laboratory Tests Test 09/26/16 10:32 09/26/16 10:35 09/26/16 18:11 09/26/16 19:10 White Blood Count 10.8 x10^3/uL (4.0-11.0) 11.4 x10^3/uL (4.0-11.0) Red Blood Count 3.36 x10^6/uL (4.30-5.70) 3.63 x10^6/uL (4.30-5.70) Hemoglobin 8.7 g/dL (13.0-17.5) 9.3 g/dL (13.0-17.5) Hematocrit 26.5 % (39.0-53.0) 29.3 % (39.0-53.0) Mean Corpuscular Volume 79 fL (79-100) 81 fL (79-100) Mean Corpuscular Hemoglobin 26 pg (25-35) 26 pg (25-35) Mean Corpuscular Hemoglobin Concent 33 g/dL (31-37) 32 g/dL (31-37) Red Cell Distribution Width 16.8 % (11.5-14.5) 17.1 % (11.5-14.5) Platelet Count 503 x10^3/uL (140-400) 509 x10^3/uL (140-400) Neutrophils (%) (Auto) 65 % (31-73) Lymphocytes (%) (Auto) 22 % (24-48) Monocytes (%) (Auto) 12 % (0-9) Eosinophils (%) (Auto) 1 % (0-3) Basophils (%) (Auto) 1 % (0-3) Neutrophils # (Auto) 7.0 x10^3uL (1.8-7.7) Lymphocytes # (Auto) 2.3 x10^3/uL (1.0-4.8) Monocytes # (Auto) 1.3 x10^3/uL (0.0-1.1) Eosinophils # (Auto) 0.1 x10^3/uL (0.0-0.7) Basophils # (Auto) 0.1 x10^3/uL (0.0-0.2) Prothrombin Time 15.4 SEC (11.7-14.0) Prothromb Time International Ratio 1.3 (0.8-1.1) Activated Partial Thromboplast Time 42 SEC (24-38) Sodium Level 135 mmol/L (136-145) Potassium Level 4.2 mmol/L (3.5-5.1) Chloride Level 100 mmol/L (98-107) Carbon Dioxide Level 27 mmol/L (21-32) Anion Gap 8 (6-14) Blood Urea Nitrogen 29 mg/dL (8-26) Creatinine 1.6 mg/dL (0.7-1.3) Estimated GFR (Cockcroft-Gault) 42.7 BUN/Creatinine Ratio 18 (6-20) Glucose Level 99 mg/dL (70-99) Calcium Level 8.0 mg/dL (8.5-10.1) Total Bilirubin 0.3 mg/dL (0.2-1.0) Aspartate Amino Transf (AST/SGOT) 25 U/L (15-37) Alanine Aminotransferase (ALT/SGPT) 21 U/L (16-63) Alkaline Phosphatase 107 U/L (46-116) Total Protein 7.6 g/dL (6.4-8.2) Albumin 2.3 g/dL (3.4-5.0) Albumin/Globulin Ratio 0.4 (1.0-1.7) Lipase 166 U/L (73-393) Stool Occult Blood Positive (NEG) Glucose (Fingerstick) 103 mg/dL (70-99) Test 09/26/16 20:49 09/27/16 05:00 Glucose (Fingerstick) 128 mg/dL (70-99) White Blood Count 9.9 x10^3/uL (4.0-11.0) Red Blood Count 3.03 x10^6/uL (4.30-5.70) Hemoglobin 8.1 g/dL (13.0-17.5) Hematocrit 24.0 % (39.0-53.0) Mean Corpuscular Volume 79 fL (79-100) Mean Corpuscular Hemoglobin 27 pg (25-35) Mean Corpuscular Hemoglobin Concent 34 g/dL (31-37) Red Cell Distribution Width 17.0 % (11.5-14.5) Platelet Count 455 x10^3/uL (140-400) Neutrophils (%) (Auto) 65 % (31-73) Lymphocytes (%) (Auto) 21 % (24-48) Monocytes (%) (Auto) 12 % (0-9) Eosinophils (%) (Auto) 1 % (0-3) Basophils (%) (Auto) 1 % (0-3) Neutrophils # (Auto) 6.5 x10^3uL (1.8-7.7) Lymphocytes # (Auto) 2.1 x10^3/uL (1.0-4.8) Monocytes # (Auto) 1.1 x10^3/uL (0.0-1.1) Eosinophils # (Auto) 0.1 x10^3/uL (0.0-0.7) Basophils # (Auto) 0.1 x10^3/uL (0.0-0.2) Sodium Level 137 mmol/L (136-145) Potassium Level 3.8 mmol/L (3.5-5.1) Chloride Level 105 mmol/L (98-107) Carbon Dioxide Level 24 mmol/L (21-32) Anion Gap 8 (6-14) Blood Urea Nitrogen 25 mg/dL (8-26) Creatinine 1.4 mg/dL (0.7-1.3) Estimated GFR (Cockcroft-Gault) 49.8 Glucose Level 92 mg/dL (70-99) Calcium Level 7.5 mg/dL (8.5-10.1) Magnesium Level 2.0 mg/dL (1.8-2.4) Meds Current Medications Acetaminophen (Tylenol) 325 mg PRN Q6HRS PRN PO MILD PAIN / TEMP; Start at 14:00 Acetaminophen (Tylenol) 650 mg PRN Q4HRS PRN PO FEVER; Start 09/26/16 at 11:45 ; Stop 09/26/16 at 14:14; Status DC Acetaminophen (Tylenol) 650 mg PRN Q4HRS PRN PO FEVER; Start 09/26/16 at 14:00 Albuterol Sulfate (Ventolin Neb Soln) 2.5 mg PRN QID PRN NEB SHORTNESS OF BREATH; Start 09/26/16 at 14:30 Albuterol/ Ipratropium (Duoneb) 3 ml RTBID IH ; Start 09/26/16 at 20:00 Atorvastatin Calcium (Lipitor) 40 mg QHS PO Last administered on 09/26/16 20: 50; Start 09/26/16 at 21:00 Bupropion HCl (Wellbutrin Sr) 200 mg DAILY PO ; Start 09/27/16 at 09:00 Cetirizine HCl (ZyrTEC) 10 mg DAILY PO ; Start 09/27/16 at 09:00 Diphenhydramine HCl (Benadryl) 25 mg PRN Q8HRS PRN PO ITCHING; Start 09/26/16 at 14:00 Divalproex Sodium (Depakote Sprinkles) 125 mg DAILY PO ; Start 09/27/16 at 09:00 Divalproex Sodium (Depakote Sprinkles) 250 mg HS PO Last administered on 20:50; Start 09/26/16 at 21:00 Ferrous Sulfate (Feosol) 325 mg DAILYWBKFT PO ; Start 09/27/16 at 08:00 Insulin Aspart (NovoLOG) TIDAC SQ ; Start 09/26/16 at 16:30 Insulin Detemir (Levemir) 10 units QHS SQ Last administered on 09/26/16 20:51 ; Start 09/26/16 at 21:00 Levothyroxine Sodium (Synthroid) 50 mcg DAILYAC PO ; Start 09/27/16 at 07:30 Magnesium Oxide (Magnesium Oxide) 400 mg BID PO Last administered on 09/26/16 20:50; Start 09/26/16 at 21:00 Metoclopramide HCl (Reglan) 5 mg BIDAC PO Last administered on 09/26/16 18:13 ; Start 09/26/16 at 16:30 Mirtazapine (Remeron) 7.5 mg QHS PO Last administered on 09/26/16 20:50; Start 09/26/16 at 21:00 Montelukast Sodium (Singulair) 10 mg HS PO Last administered on 09/26/16 20:50 ; Start 09/26/16 at 21:00 Multivitamins (Thera M Plus) 1 tab DAILY PO ; Start 09/27/16 at 09:00 Nitroglycerin (Nitrostat) 0.4 mg PRN Q5MIN PRN SL CHEST PAIN; Start 09/26/16 at 14:00 Nystatin (Nystop) 1 chaparrita BID TP Last administered on 09/26/16 20:50; Start at 21:00 Ondansetron HCl (Zofran Odt) 4 mg PRN Q6HRS PRN PO NAUSEA/VOMITING; Start 09/26 at 14:00 Ondansetron HCl (Zofran) 4 mg 1X ONCE IV Last administered on 09/26/16 10:51 ; Start 09/26/16 at 10:30; Stop 09/26/16 at 10:31; Status DC Ondansetron HCl (Zofran) 4 mg PRN Q8HRS PRN IV NAUSEA/VOMITING; Start 09/26/16 at 11:45; Stop 09/26/16 at 14:14; Status DC Ondansetron HCl (Zofran) 4 mg PRN Q8HRS PRN IV NAUSEA/VOMITING; Start 09/26/16 at 14:00 Pantoprazole Sodium (Protonix Vial) 40 mg DAILYAC IVP ; Start 09/27/16 at 07:30 Pantoprazole Sodium (Protonix Vial) 40 mg STK-MED ONCE IVP ; Start 09/26/16 at 10:49; Stop 09/26/16 at 10:50; Status DC Pantoprazole Sodium 80 mg/ Sodium Chloride 100 ml @ 10 mls/hr 1X ONCE IV Last administered on 09/26/16 10:51; Start 09/26/16 at 11:00; Stop 09/26/16 at 20:59; Status DC Polyethylene Glycol (miraLAX PACKET) 17 gm PRN DAILY PRN PO CONSTIPATION; Start 09/26/16 at 14:00 Potassium Chloride (Klor-Con) 10 meq DAILYWBKFT PO ; Start 09/27/16 at 08:00 Sennosides (Senna) 17.2 mg BID PO Last administered on 09/26/16 18:13; Start 09/26/16 at 15:00 Sodium Monofluorophosphate (Fleet Adult) 133 ml PRN DAILY PRN RC CONSTIPATION; Start 09/26/16 at 14:00 Sodium Chloride 1,000 ml @ 100 mls/hr Q10H IV Last administered on 09/27/16 06:16; Start 09/26/16 at 11:34; Stop 09/27/16 at 11:33 Sodium Chloride 1,000 ml @ 1,000 mls/hr Q1H IV Last administered on 09/26/16 10:23; Start 09/26/16 at 10:23; Stop 09/26/16 at 11:22; Status DC Spironolactone (Aldactone) 25 mg BID PO ; Start 09/26/16 at 21:00 Vitamin B Complex (Turner B) 1 tab DAILY PO Last administered on 09/26/16 18:12 ; Start 09/26/16 at 15:00 Vitamin D (Vitamin D3) 5,000 unit DAILY PO ; Start 09/27/16 at 09:00 Assessment Assessment 1. GIB with rectal bleeding 2. hypotension due to vascular volume depletion 3. DM II with PVD chronic insulin 4. CHF diastolic with normal EF 5. AF on Pradaxa 6. CAD on chronic ASA 325mg 7. HTN 8. h/o GIB June 2016 requiring PRC 9. non erosive gastritis 10. COPD 11. 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 diverticulosis large colon 14. internal hemorrhoids 15. BI 16. depression 17. Vitamin D def 18. h/o PE 19. moderate chronic PCL malnutrition PLAN: anemia gastroenterology consult type and screen Admit Hgb 8.7 09/27 Hgb 8.1 serial hemogram HTN with hypotension IVF NS 125cc/hr decrease to 100cc/hr 1L NS in ED 09/26 hold zaroxlyn chronic med 09/27 hypotensive through night, NS 500cc bolus and increase IVF to 125cc/hr and add 20meq KCL to current IVF after bolus CHF diastolic IO daily weight Admit wt 195# 09/27 196# DM II FSBS SSI Levemir 10u at hs BS 92-128 CAD ASA 325mg on hold AF rate controlled Pradaxa on hold CKD III Admit BUN 29 09/27 25 Cr 1.6 1.4 No ATN TOMMY -azotemia from vascular volume deficit anemia DVT/GI prophylaxis SCD/GALINA PPI For more details regarding further plans, please refer to the orders. Plan Plan For more details regarding further plans, please refer to the orders. MERVAT MORE MD 09/27/16 0937: IM PROGRESS NOTES- Assessment Assessment For more details regarding further plans, please refer to the orders. The patient was seen and examined by me. Chart reviewed and plan of care formulated. Discussed with, reviewed and agree with [employer]GE[employer]'s notes, plan of care and orders with modifications as necessary. EFRA CARRASQUILLO APRN Sep 27, 2016 08:06 MERVAT MORE MD Sep 27, 2016 09:37
[2016-09-27] MEDS ORDERED: IV NORMAL SALINE 500ML BAG 500 ML IV ONE (08:15)
[2016-09-27] MEDS: PANTOPRAZOLE IV PUSH 40 MG VIAL. IVP SCH (08:18)
[2016-09-27] MEDS: CHOLECALCIFEROL (VITAMIN D3) 5,000 UNIT CAPSULE PO SCH (08:18)
[2016-09-27] MEDS: DIVALPROEX SPRINKLES 125 MG CAPSULE. PO SCH ×2 (08:19→20:37)
[2016-09-27] MEDS: buPROPion SR 100 MG TABLET.SA. PO SCH (08:19)
[2016-09-27] MEDS: CETIRIZINE HCL 10 MG TABLET. PO SCH (08:20)
[2016-09-27] MEDS: METOCLOPRAMIDE 5 MG TABLET. PO SCH ×2 (08:20→17:02)
[2016-09-27] MEDS: SPIRONOLACTONE 25 MG TABLET PO SCH ×2 (08:20→21:00)
[2016-09-27] MEDS: POTASSIUM CHLORIDE 10 MEQ TABLET.ER. PO SCH (08:20)
[2016-09-27] MEDS: FERROUS SULFATE 325 MG TABLET. PO SCH (08:20)
[2016-09-27] MEDS: MULTIVITAMIN with MINERAL TABLET. PO SCH (08:20)
[2016-09-27] MEDS: LEVOTHYROXINE 50 MCG TABLET PO SCH (08:21)
[2016-09-27] MEDS: MAGNESIUM OXIDE 400 MG TABLET PO SCH ×2 (08:21→20:37)
[2016-09-27] MEDS: VITAMIN B COMPLEX TABLET. PO SCH (08:21)
[2016-09-27] MEDS: NYSTATIN TOPICAL POWDER 15GM BOTTLE. TP SCH ×2 (08:27→20:38)
[2016-09-27] MEDS: SENNOSIDES 8.6 MG TABLET PO SCH ×2 (09:00→20:37)
--- NOTE | 2016-09-27 10:15 | PDOC ---
Subjective: Subjective: Feeling okay. Ate breakfast. Objective: Objective: Per RN - loose stools overnight "looked like iron." Systolic 80s-90s. Vital Signs: Vital Signs Date Time Temp Pulse Resp B/P (MAP) Pulse Ox O2 Delivery O2 Flow Rate FiO2 09/27/16 06:00 89 16 101/58 (72) 92 Room Air 09/27/16 04:00 99.2 99.2 Labs: Laboratory Tests Test 09/26/16 18:11 09/26/16 20:49 Glucose (Fingerstick) 103 mg/dL (70-99) 128 mg/dL (70-99) PE: GEN: NAD LUNGS: CTAB HEART: RRR ABD: S/ND/NT NEURO/PSYCH: A & O 3 A/P: SALOMÓN, rectal bleeding, hemoccult positive stool -BRBPR x 1 at living facility yesterday, brown stool in ICU x 2 yesterday, loose dark stools overnight -h/o anemia, EGD in 06/2016 w/ non-erosive gastritis, colonoscopy 01/2013 w/ diverticulosis, internal hemorrhoids -has also seen hematology (last admission) -on Xarelto (held) -Hgb 8.7 to 8.1 today, some hypotension -- D/w Dr. Martines - bleeding scan. Continue IV PPI. On PO iron QD - ?increase KRISTINA-JEFFERSON REYNOSO Sep 27, 2016 10:15
--- NOTE | 2016-09-27 15:01 | RAD ---
Radionuclide GI bleeding scan, 09/27/2016: History: Blood in stool The study was performed utilizing 30 mCi of technetium 99m and a labeled red blood cell technique. No abnormal accumulation of activity is seen in the abdomen or pelvis to suggest active GI tract bleeding. IMPRESSION: Negative radionuclide GI bleeding scan.
[2016-09-27 15:05] LABS: HEMATOCRIT 24.3 % (39.0-53.0); HEMOGLOBIN 7.7 g/dL (13.0-17.5); RED CELL DISTRIBUTION WIDTH 17.3 % (11.5-14.5); WHITE BLOOD COUNT 8.6 x10^3/uL (4.0-11.0)
[2016-09-27] MEDS: ACETAMINOPHEN 325 MG TABLET. PO PRN (17:02)
[2016-09-27] MEDS: IPRATRPIUM/ALBUTEROL 0.5/2.5MG 3 ML NEBU. IH SCH (20:00)
[2016-09-27 20:18] LABS: NEG OBC FOB NEG; POS OBC FOB POS
[2016-09-27] MEDS: ATORVASTATIN CALCIUM 40 MG TABLET. PO SCH (20:37)
[2016-09-27] MEDS: MONTELUKAST SODIUM 10 MG TABLET. PO SCH (20:37)
[2016-09-27] MEDS: MIRTAZAPINE 7.5 MG TABLET. PO SCH (20:37)
[2016-09-27] MEDS: INSULIN DETEMIR 300 UNITS/3 ML INSULN.PEN. SQ SCH (22:01)
[2016-09-28] VITALS (21 sets, daily range): BP systolic 87–124; BP diastolic 39–79
[2016-09-28 04:54] LABS: BASO # 0.1 x10^3/uL (0.0-0.2); BASO % 1 % (0-3); EOS % 3 % (0-3); HEMATOCRIT 23.5 % (39.0-53.0); HEMOGLOBIN 7.2 g/dL (13.0-17.5); LYMPH # 2.3 x10^3/uL (1.0-4.8); LYMPH % 26 % (24-48); MEAN CORPUSCULAR HEMOGLOBIN 25 pg (25-35); MEAN CORPUSCULAR HGB CONC 31 g/dL (31-37); MEAN CORPUSCULAR VOLUME 83 fL (79-100); MONO % 14 % (0-9); NEUT % 56 % (31-73); PLATELET COUNT 425 x10^3/uL (140-400); RED BLOOD COUNT 2.83 x10^6/uL (4.30-5.70); RED CELL DISTRIBUTION WIDTH 16.7 % (11.5-14.5); WHITE BLOOD COUNT 8.8 x10^3/uL (4.0-11.0)
[2016-09-28] MEDS: ACETAMINOPHEN 325 MG TABLET. PO PRN ×2 (05:04→09:37)
[2016-09-28 05:10] LABS: CALCIUM 7.8 mg/dL (8.5-10.1); CREATININE 1.1 mg/dL (0.7-1.3); GFR 65.8; POTASSIUM 4.5 mmol/L (3.5-5.1)
[2016-09-28] MEDS: INSULIN ASPART 300 UNITS/3 ML INSULN.PEN SQ SCH ×3 (07:30→16:30)
[2016-09-28] MEDS ORDERED: IV NORMAL SALINE 500ML BAG 500 ML IV ONE (07:30)
[2016-09-28] MEDS: IPRATRPIUM/ALBUTEROL 0.5/2.5MG 3 ML NEBU. IH SCH (07:32)
--- NOTE | 2016-09-28 07:36 | PDOC ---
EFRA CARRASQUILLO ENGRAVER [employer] 09/28/16 0736: IM PROGRESS NOTES- Subjective Subjective sad, wants to go home ([facility]) Objective Objective alert appropriate Vitals Vital Signs Date Time Temp Pulse Resp B/P (MAP) Pulse Ox O2 Delivery O2 Flow Rate FiO2 09/28/16 07:00 82 99/59 (72) 94 Room Air 09/28/16 06:00 21 09/28/16 04:00 98.8 98.8 Input & Output Intake and Output 09/28/16 07:00 Intake Total 3750 ml Output Total 4 ml Balance 3746 ml Intake Oral 450 ml IV Total 3300 ml Output Urine Total 4 ml # Voids 1 # Bowel Movements 4 Physical Exam Physical Exam General appearance - alert chronically ill appearing, and in no distress Mental Status - alert, oriented to person, place, and time, affect appropriate to mood Head - normal Chest - clear to auscultation, no wheezes, rales or rhonchi Heart - S1 and S2 normal Abdomen - soft, nontender, nondistended, BS+ Neurological - no acute focal neurological deficits noted. H/O CVA with residual R sided hemiparesis, R hand elbow contracture, and bilateral foot drop. Also with expressive aphasia Musculoskeletal - no muscular tenderness noted Extremities - no pedal edema Skin - warm and dry Labs Laboratory Tests Test 09/26/16 10:32 09/26/16 10:35 09/26/16 18:11 09/26/16 19:00 White Blood Count 10.8 x10^3/uL (4.0-11.0) Red Blood Count 3.36 x10^6/uL (4.30-5.70) Hemoglobin 8.7 g/dL (13.0-17.5) Hematocrit 26.5 % (39.0-53.0) Mean Corpuscular Volume 79 fL (79-100) Mean Corpuscular Hemoglobin 26 pg (25-35) Mean Corpuscular Hemoglobin Concent 33 g/dL (31-37) Red Cell Distribution Width 16.8 % (11.5-14.5) Platelet Count 503 x10^3/uL (140-400) Neutrophils (%) (Auto) 65 % (31-73) Lymphocytes (%) (Auto) 22 % (24-48) Monocytes (%) (Auto) 12 % (0-9) Eosinophils (%) (Auto) 1 % (0-3) Basophils (%) (Auto) 1 % (0-3) Neutrophils # (Auto) 7.0 x10^3uL (1.8-7.7) Lymphocytes # (Auto) 2.3 x10^3/uL (1.0-4.8) Monocytes # (Auto) 1.3 x10^3/uL (0.0-1.1) Eosinophils # (Auto) 0.1 x10^3/uL (0.0-0.7) Basophils # (Auto) 0.1 x10^3/uL (0.0-0.2) Prothrombin Time 15.4 SEC (11.7-14.0) Prothromb Time International Ratio 1.3 (0.8-1.1) Activated Partial Thromboplast Time 42 SEC (24-38) Sodium Level 135 mmol/L (136-145) Potassium Level 4.2 mmol/L (3.5-5.1) Chloride Level 100 mmol/L (98-107) Carbon Dioxide Level 27 mmol/L (21-32) Anion Gap 8 (6-14) Blood Urea Nitrogen 29 mg/dL (8-26) Creatinine 1.6 mg/dL (0.7-1.3) Estimated GFR (Cockcroft-Gault) 42.7 BUN/Creatinine Ratio 18 (6-20) Glucose Level 99 mg/dL (70-99) Calcium Level 8.0 mg/dL (8.5-10.1) Total Bilirubin 0.3 mg/dL (0.2-1.0) Aspartate Amino Transf (AST/SGOT) 25 U/L (15-37) Alanine Aminotransferase (ALT/SGPT) 21 U/L (16-63) Alkaline Phosphatase 107 U/L (46-116) Total Protein 7.6 g/dL (6.4-8.2) Albumin 2.3 g/dL (3.4-5.0) Albumin/Globulin Ratio 0.4 (1.0-1.7) Lipase 166 U/L (73-393) Stool Occult Blood Positive (NEG) Glucose (Fingerstick) 103 mg/dL (70-99) Nasal Screen MRSA (PCR) Negative (Negative) Test 09/26/16 19:10 09/26/16 20:49 09/27/16 05:00 09/27/16 12:59 White Blood Count 11.4 x10^3/uL (4.0-11.0) 9.9 x10^3/uL (4.0-11.0) Red Blood Count 3.63 x10^6/uL (4.30-5.70) 3.03 x10^6/uL (4.30-5.70) Hemoglobin 9.3 g/dL (13.0-17.5) 8.1 g/dL (13.0-17.5) Hematocrit 29.3 % (39.0-53.0) 24.0 % (39.0-53.0) Mean Corpuscular Volume 81 fL (79-100) 79 fL (79-100) Mean Corpuscular Hemoglobin 26 pg (25-35) 27 pg (25-35) Mean Corpuscular Hemoglobin Concent 32 g/dL (31-37) 34 g/dL (31-37) Red Cell Distribution Width 17.1 % (11.5-14.5) 17.0 % (11.5-14.5) Platelet Count 509 x10^3/uL (140-400) 455 x10^3/uL (140-400) Glucose (Fingerstick) 128 mg/dL (70-99) 107 mg/dL (70-99) Neutrophils (%) (Auto) 65 % (31-73) Lymphocytes (%) (Auto) 21 % (24-48) Monocytes (%) (Auto) 12 % (0-9) Eosinophils (%) (Auto) 1 % (0-3) Basophils (%) (Auto) 1 % (0-3) Neutrophils # (Auto) 6.5 x10^3uL (1.8-7.7) Lymphocytes # (Auto) 2.1 x10^3/uL (1.0-4.8) Monocytes # (Auto) 1.1 x10^3/uL (0.0-1.1) Eosinophils # (Auto) 0.1 x10^3/uL (0.0-0.7) Basophils # (Auto) 0.1 x10^3/uL (0.0-0.2) Sodium Level 137 mmol/L (136-145) Potassium Level 3.8 mmol/L (3.5-5.1) Chloride Level 105 mmol/L (98-107) Carbon Dioxide Level 24 mmol/L (21-32) Anion Gap 8 (6-14) Blood Urea Nitrogen 25 mg/dL (8-26) Creatinine 1.4 mg/dL (0.7-1.3) Estimated GFR (Cockcroft-Gault) 49.8 Glucose Level 92 mg/dL (70-99) Calcium Level 7.5 mg/dL (8.5-10.1) Magnesium Level 2.0 mg/dL (1.8-2.4) Test 09/27/16 14:20 09/27/16 17:06 09/27/16 18:30 09/27/16 21:59 White Blood Count 8.6 x10^3/uL (4.0-11.0) Red Blood Count 3.00 x10^6/uL (4.30-5.70) Hemoglobin 7.7 g/dL (13.0-17.5) Hematocrit 24.3 % (39.0-53.0) Mean Corpuscular Volume 81 fL (79-100) Mean Corpuscular Hemoglobin 26 pg (25-35) Mean Corpuscular Hemoglobin Concent 32 g/dL (31-37) Red Cell Distribution Width 17.3 % (11.5-14.5) Platelet Count 431 x10^3/uL (140-400) Glucose (Fingerstick) 152 mg/dL (70-99) 102 mg/dL (70-99) Stool Occult Blood Negative (NEG) Test 09/28/16 04:00 White Blood Count 8.8 x10^3/uL (4.0-11.0) Red Blood Count 2.83 x10^6/uL (4.30-5.70) Hemoglobin 7.2 g/dL (13.0-17.5) Hematocrit 23.5 % (39.0-53.0) Mean Corpuscular Volume 83 fL (79-100) Mean Corpuscular Hemoglobin 25 pg (25-35) Mean Corpuscular Hemoglobin Concent 31 g/dL (31-37) Red Cell Distribution Width 16.7 % (11.5-14.5) Platelet Count 425 x10^3/uL (140-400) Neutrophils (%) (Auto) 56 % (31-73) Lymphocytes (%) (Auto) 26 % (24-48) Monocytes (%) (Auto) 14 % (0-9) Eosinophils (%) (Auto) 3 % (0-3) Basophils (%) (Auto) 1 % (0-3) Neutrophils # (Auto) 4.9 x10^3uL (1.8-7.7) Lymphocytes # (Auto) 2.3 x10^3/uL (1.0-4.8) Monocytes # (Auto) 1.2 x10^3/uL (0.0-1.1) Eosinophils # (Auto) 0.2 x10^3/uL (0.0-0.7) Basophils # (Auto) 0.1 x10^3/uL (0.0-0.2) Sodium Level 135 mmol/L (136-145) Potassium Level 4.5 mmol/L (3.5-5.1) Chloride Level 104 mmol/L (98-107) Carbon Dioxide Level 22 mmol/L (21-32) Anion Gap 9 (6-14) Blood Urea Nitrogen 15 mg/dL (8-26) Creatinine 1.1 mg/dL (0.7-1.3) Estimated GFR (Cockcroft-Gault) 65.8 Glucose Level 80 mg/dL (70-99) Calcium Level 7.8 mg/dL (8.5-10.1) Laboratory Tests Test 09/27/16 12:59 09/27/16 14:20 09/27/16 17:06 09/27/16 18:30 Glucose (Fingerstick) 107 mg/dL (70-99) 152 mg/dL (70-99) White Blood Count 8.6 x10^3/uL (4.0-11.0) Red Blood Count 3.00 x10^6/uL (4.30-5.70) Hemoglobin 7.7 g/dL (13.0-17.5) Hematocrit 24.3 % (39.0-53.0) Mean Corpuscular Volume 81 fL (79-100) Mean Corpuscular Hemoglobin 26 pg (25-35) Mean Corpuscular Hemoglobin Concent 32 g/dL (31-37) Red Cell Distribution Width 17.3 % (11.5-14.5) Platelet Count 431 x10^3/uL (140-400) Stool Occult Blood Negative (NEG) Test 09/27/16 21:59 09/28/16 04:00 Glucose (Fingerstick) 102 mg/dL (70-99) White Blood Count 8.8 x10^3/uL (4.0-11.0) Red Blood Count 2.83 x10^6/uL (4.30-5.70) Hemoglobin 7.2 g/dL (13.0-17.5) Hematocrit 23.5 % (39.0-53.0) Mean Corpuscular Volume 83 fL (79-100) Mean Corpuscular Hemoglobin 25 pg (25-35) Mean Corpuscular Hemoglobin Concent 31 g/dL (31-37) Red Cell Distribution Width 16.7 % (11.5-14.5) Platelet Count 425 x10^3/uL (140-400) Neutrophils (%) (Auto) 56 % (31-73) Lymphocytes (%) (Auto) 26 % (24-48) Monocytes (%) (Auto) 14 % (0-9) Eosinophils (%) (Auto) 3 % (0-3) Basophils (%) (Auto) 1 % (0-3) Neutrophils # (Auto) 4.9 x10^3uL (1.8-7.7) Lymphocytes # (Auto) 2.3 x10^3/uL (1.0-4.8) Monocytes # (Auto) 1.2 x10^3/uL (0.0-1.1) Eosinophils # (Auto) 0.2 x10^3/uL (0.0-0.7) Basophils # (Auto) 0.1 x10^3/uL (0.0-0.2) Sodium Level 135 mmol/L (136-145) Potassium Level 4.5 mmol/L (3.5-5.1) Chloride Level 104 mmol/L (98-107) Carbon Dioxide Level 22 mmol/L (21-32) Anion Gap 9 (6-14) Blood Urea Nitrogen 15 mg/dL (8-26) Creatinine 1.1 mg/dL (0.7-1.3) Estimated GFR (Cockcroft-Gault) 65.8 Glucose Level 80 mg/dL (70-99) Calcium Level 7.8 mg/dL (8.5-10.1) Meds Current Medications Bupropion HCl (Wellbutrin Sr) 200 mg DAILY PO Last administered on 09/27/16 08 :19; Start 09/27/16 at 09:00 Cetirizine HCl (ZyrTEC) 10 mg DAILY PO Last administered on 09/27/16 08:20; Start 09/27/16 at 09:00 Divalproex Sodium (Depakote Sprinkles) 125 mg DAILY PO Last administered on 08:19; Start 09/27/16 at 09:00 Ferrous Sulfate (Feosol) 325 mg DAILYWBKFT PO Last administered on 09/27/16 08 :20; Start 09/27/16 at 08:00 Multivitamins (Thera M Plus) 1 tab DAILY PO Last administered on 09/27/16 08: 20; Start 09/27/16 at 09:00 Potassium Chloride/Sodium Chloride 1,000 ml @ 125 mls/hr Q8H IV Last administered on 09/28/16 01:01; Start 09/27/16 at 08:15 Potassium Chloride (Klor-Con) 10 meq DAILYWBKFT PO Last administered on 08:20; Start 09/27/16 at 08:00 Sodium Chloride 500 ml @ 500 mls/hr 1X ONCE IV Last administered on 08:26; Start 09/27/16 at 08:15; Stop 09/27/16 at 09:14; Status DC Sodium Chloride 500 ml @ 500 mls/hr 1X ONCE IV ; Start 09/28/16 at 07:30; Stop 09/28/16 at 08:29; Status UNV Vitamin D (Vitamin D3) 5,000 unit DAILY PO Last administered on 09/27/16 08:18 ; Start 09/27/16 at 09:00 Assessment Assessment 1. GIB with rectal bleeding 2. hypotension due to vascular volume depletion 3. DM II with PVD chronic insulin 4. CHF diastolic with normal EF 5. AF on Pradaxa 6. CAD on chronic ASA 325mg 7. HTN 8. h/o GIB June 2016 requiring PRC 9. non erosive gastritis 10. COPD 11. 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 diverticulosis large colon 14. internal hemorrhoids 15. BI 16. depression 17. Vitamin D def 18. h/o PE 19. moderate chronic PCL malnutrition PLAN: anemia gastroenterology consult type and screen Admit Hgb 8.7 09/28 7.2 serial hemogram OB #2 neg Bleed scan neg HTN with hypotension IVF NS 125cc/hr decrease to 100cc/hr 1L NS in ED 09/26 hold zaroxlyn chronic med 09/27 hypotensive through night, NS 500cc bolus and increase IVF to 125cc/hr and add 20meq KCL to current IVF after bolus 09/28 IV bolus NS 500cc, IV rate remains 125cc/hr-may need PRC x1 CHF diastolic IO daily weight Admit wt 195# 09/27 196# 09/28 182.2 wheezing through night, refused neb tx-obtain CXR this morning -zaroxlyn on hold since admit DM II FSBS SSI Levemir 10u at hs BS 102-152 CAD ASA 325mg on hold AF rate controlled Pradaxa on hold CKD III with TOMMY AVM no ATN Admit BUN 09/28 15 Cr 1.6 1.1 DVT/GI prophylaxis SCD/GALINA PPI For more details regarding further plans, please refer to the orders Plan Plan For more details regarding further plans, please refer to the orders. MERVAT MORE MD 09/28/16 0848: IM PROGRESS NOTES- Assessment Assessment Still hypotensive.Hb 7.2. Transfuse 2 units PRBcs. Overall improving. The patient was seen and examined by me. Chart reviewed and plan of care formulated. Discussed with, reviewed and agree with SCIENTIFIC PUBLICATIONS EDITOR's notes, plan of care and orders with modifications as necessary. For more details regarding further plans, please refer to the orders. EFRA CARRASQUILLO APRN Sep 28, 2016 07:36 MERVAT MORE MD Sep 28, 2016 08:48
--- NOTE | 2016-09-28 07:38 | DISCH ---
DISCHARGE FINAL DIAGNOSIS Problems Medical Problems: (1) Acute GI bleeding Status: Acute (2) Hemodynamic instability Status: Acute (3) Severe protein-calorie malnutrition Status: Acute CONDITION ON DISCHARGE: Stable SNF STAY <30 DAYS: Yes POST DISCHARGE ORDERS ACTIVITY ORDERS: Activity as tolerated WEIGHT BEARING STATUS: As tolerated DIET AFTER DISCHARGE: Cardiac CHECKS AFTER DISCHARGE CHECKS AFTER DISCHARGE: Check blood sugar, ac/hs COMMENTS: VS per routine. Weight weekly FOLLOW-UP PHYSICIAN FOLLOW-UP: Admit to facility MD LAB ORDERS FOR FOLLOW-UP: CBC with diff, CMP, Pre albumin in AM TREATMENT/EQUIPMENT ORDERS ADAPTIVE EQUIPMENT NEEDED: Wheelchair RESPIRATORY EQUIPMENT NEEDED: Oxygen (to maintain Sat >90% or shortness of breath ), Nebulizer (BID and QID prn ) EFRA CARRASQUILLO APRN Sep 28, 2016 07:38
[2016-09-28] MEDS ORDERED: INSU100I17 SQ (07:43)
[2016-09-28] MEDS ORDERED: VITA1TAB3 PO (07:43)
[2016-09-28] MEDS ORDERED: CHOL5000 PO (07:43)
[2016-09-28] MEDS ORDERED: SENN-79 PO (07:43)
--- NOTE | 2016-09-28 08:25 | RAD ---
Portable AP upright view CXR: Clinical indications: Wheezing. CHF. Comparison: June 24, 2016. Findings: No acute lung infiltrate or pleural effusion or pulmonary edema or lung mass or pneumothorax is seen. The heart size, pulmonary vasculature, mediastinum and both siobhan are unremarkable. Impression: No acute radiographic abnormality is seen.
[2016-09-28] MEDS: PANTOPRAZOLE IV PUSH 40 MG VIAL. IVP SCH (08:35)
[2016-09-28] MEDS: DIVALPROEX SPRINKLES 125 MG CAPSULE. PO SCH ×2 (08:36→21:30)
[2016-09-28] MEDS: CETIRIZINE HCL 10 MG TABLET. PO SCH (08:36)
[2016-09-28] MEDS: LEVOTHYROXINE 50 MCG TABLET PO SCH (08:36)
[2016-09-28] MEDS: buPROPion SR 100 MG TABLET.SA. PO SCH (08:36)
[2016-09-28] MEDS: MAGNESIUM OXIDE 400 MG TABLET PO SCH ×2 (08:36→21:00)
[2016-09-28] MEDS: MULTIVITAMIN with MINERAL TABLET. PO SCH (08:37)
[2016-09-28] MEDS: FERROUS SULFATE 325 MG TABLET. PO SCH (08:37)
[2016-09-28] MEDS: POTASSIUM CHLORIDE 10 MEQ TABLET.ER. PO SCH (08:37)
[2016-09-28] MEDS: CHOLECALCIFEROL (VITAMIN D3) 5,000 UNIT CAPSULE PO SCH (08:37)
[2016-09-28] MEDS: VITAMIN B COMPLEX TABLET. PO SCH (08:37)
[2016-09-28] MEDS: METOCLOPRAMIDE 5 MG TABLET. PO SCH ×2 (08:37→17:34)
[2016-09-28] MEDS: SPIRONOLACTONE 25 MG TABLET PO SCH ×2 (08:41→21:29)
[2016-09-28] MEDS: SENNOSIDES 8.6 MG TABLET PO SCH ×2 (08:41→21:00)
[2016-09-28] MEDS: NYSTATIN TOPICAL POWDER 15GM BOTTLE. TP SCH ×2 (08:41→21:36)
--- NOTE | 2016-09-28 15:04 | PDOC ---
GI PROGRESS NOTES Date Date/Time DATE: 09/28/16 TIME: 15:02 Subjective Subjective feels better- no further blood in stool, eating Objective Vitals Vital Signs Date Time Temp Pulse Resp B/P (MAP) Pulse Ox O2 Delivery O2 Flow Rate FiO2 09/28/16 12:24 98.0 78 20 120/72 98.0 09/28/16 12:00 98.1 84 20 120/72 (88) 96 Room Air 98.1 09/28/16 11:30 98.2 88 20 114/69 98.2 09/28/16 11:15 98.5 80 20 114/69 98.5 09/28/16 11:07 98.5 82 20 109/69 98.5 09/28/16 10:17 98.0 80 20 108/70 98.0 09/28/16 10:02 97.7 83 20 93/61 97.7 09/28/16 10:00 85 19 93/61 (72) 97 Room Air 09/28/16 09:00 84 20 118/79 (92) 95 Room Air 09/28/16 08:00 Room Air 09/28/16 08:00 98.9 82 20 96/62 (73) 95 Room Air 98.9 09/28/16 07:00 82 99/59 (72) 94 Room Air 09/28/16 06:00 92 21 87/46 (60) 93 Room Air 09/28/16 05:00 88 17 93/61 (72) 92 Room Air 09/28/16 04:00 98.8 88 17 98/59 (72) 94 Room Air 98.8 09/28/16 04:00 Room Air 09/28/16 03:00 98.8 88 25 92/58 (69) 100 Room Air 98.8 09/28/16 02:00 84 19 91/60 (70) 94 Room Air 09/28/16 01:00 80 15 100/56 (71) 94 Room Air 09/28/16 00:00 Room Air 09/28/16 00:00 82 17 105/66 (79) 99 Room Air 09/27/16 23:00 99.0 91 17 94/62 (73) 97 Room Air 99.0 09/27/16 22:00 84 19 109/66 (80) 93 Room Air 09/27/16 21:00 86 19 93/53 (66) 94 Room Air 09/27/16 20:00 Room Air 09/27/16 20:00 92 25 85/52 (63) 93 Room Air 09/27/16 19:00 98.6 93 21 89/56 (67) 94 Room Air 98.6 09/27/16 18:00 92 24 97/63 (74) 95 Room Air 09/27/16 17:00 96 20 93/60 (71) 96 Room Air 09/27/16 16:00 Room Air 09/27/16 16:00 98.8 94 20 90/55 (67) 95 Room Air 98.8 Labs Labs Laboratory Tests Test 09/27/16 17:06 09/27/16 18:30 09/27/16 21:59 09/28/16 04:00 Glucose (Fingerstick) 152 mg/dL (70-99) 102 mg/dL (70-99) Stool Occult Blood Negative (NEG) White Blood Count 8.8 x10^3/uL (4.0-11.0) Red Blood Count 2.83 x10^6/uL (4.30-5.70) Hemoglobin 7.2 g/dL (13.0-17.5) Hematocrit 23.5 % (39.0-53.0) Mean Corpuscular Volume 83 fL (79-100) Mean Corpuscular Hemoglobin 25 pg (25-35) Mean Corpuscular Hemoglobin Concent 31 g/dL (31-37) Red Cell Distribution Width 16.7 % (11.5-14.5) Platelet Count 425 x10^3/uL (140-400) Neutrophils (%) (Auto) 56 % (31-73) Lymphocytes (%) (Auto) 26 % (24-48) Monocytes (%) (Auto) 14 % (0-9) Eosinophils (%) (Auto) 3 % (0-3) Basophils (%) (Auto) 1 % (0-3) Neutrophils # (Auto) 4.9 x10^3uL (1.8-7.7) Lymphocytes # (Auto) 2.3 x10^3/uL (1.0-4.8) Monocytes # (Auto) 1.2 x10^3/uL (0.0-1.1) Eosinophils # (Auto) 0.2 x10^3/uL (0.0-0.7) Basophils # (Auto) 0.1 x10^3/uL (0.0-0.2) Sodium Level 135 mmol/L (136-145) Potassium Level 4.5 mmol/L (3.5-5.1) Chloride Level 104 mmol/L (98-107) Carbon Dioxide Level 22 mmol/L (21-32) Anion Gap 9 (6-14) Blood Urea Nitrogen 15 mg/dL (8-26) Creatinine 1.1 mg/dL (0.7-1.3) Estimated GFR (Cockcroft-Gault) 65.8 Glucose Level 80 mg/dL (70-99) Calcium Level 7.8 mg/dL (8.5-10.1) Test 09/28/16 12:44 Glucose (Fingerstick) 110 mg/dL (70-99) Imaging Imaging Bleeding scan NEGATIVE Physical Exam Physical Exam chest- clear abd -soft nontender Assessment Assessment GI bleed- with symptoms last few days of bleeding and drop in Hgb but now appears to have stopped and bleeding scan was negative- likely diverticular bleed which resolved before admission and Hgb now drifting down with equilibration Problems: Plan Plan continue diet if Hgb drops further, consider PRBC transfusion hold on further testing for now JACKIE METZGER MD Sep 28, 2016 15:04
[2016-09-28] MEDS: fentaNYL PF VIAL 100 MCG/2 ML VIAL IV PRN (21:26)
[2016-09-28] MEDS: MIRTAZAPINE 7.5 MG TABLET. PO SCH (21:28)
[2016-09-28] MEDS: ATORVASTATIN CALCIUM 40 MG TABLET. PO SCH (21:29)
[2016-09-28] MEDS: MONTELUKAST SODIUM 10 MG TABLET. PO SCH (21:29)
[2016-09-28] MEDS: INSULIN DETEMIR 300 UNITS/3 ML INSULN.PEN. SQ SCH (21:36)
[2016-09-29] VITALS (7 sets, daily range): BP systolic 88–122; BP diastolic 46–70
[2016-09-29 05:12] LABS: BASO # 0.1 x10^3/uL (0.0-0.2); BASO % 1 % (0-3); EOS % 2 % (0-3); HEMATOCRIT 28.6 % (39.0-53.0); HEMOGLOBIN 9.4 g/dL (13.0-17.5); LYMPH % 22 % (24-48); MEAN CORPUSCULAR HEMOGLOBIN 27 pg (25-35); MEAN CORPUSCULAR HGB CONC 33 g/dL (31-37); MEAN CORPUSCULAR VOLUME 81 fL (79-100); MONO % 12 % (0-9); NEUT % 63 % (31-73); PLATELET COUNT 402 x10^3/uL (140-400); RED BLOOD COUNT 3.53 x10^6/uL (4.30-5.70); WHITE BLOOD COUNT 9.4 x10^3/uL (4.0-11.0)
[2016-09-29 05:25] LABS: CALCIUM 7.1 mg/dL (8.5-10.1); CREATININE 1.2 mg/dL (0.7-1.3); GFR 59.5; POTASSIUM 4.3 mmol/L (3.5-5.1)
[2016-09-29] MEDS: INSULIN ASPART 300 UNITS/3 ML INSULN.PEN SQ SCH ×3 (07:30→16:30)
[2016-09-29] MEDS ORDERED: IPRATRPIUM/ALBUTEROL 0.5/2.5MG 3 ML NEBU. IH PRN (08:00)
[2016-09-29] MEDS: SENNOSIDES 8.6 MG TABLET PO SCH ×2 (08:35→20:41)
[2016-09-29] MEDS: LEVOTHYROXINE 50 MCG TABLET PO SCH (08:36)
[2016-09-29] MEDS: FERROUS SULFATE 325 MG TABLET. PO SCH (08:36)
[2016-09-29] MEDS: buPROPion SR 100 MG TABLET.SA. PO SCH (08:36)
[2016-09-29] MEDS: CETIRIZINE HCL 10 MG TABLET. PO SCH (08:36)
[2016-09-29] MEDS: SPIRONOLACTONE 25 MG TABLET PO SCH ×2 (08:36→20:40)
[2016-09-29] MEDS: POTASSIUM CHLORIDE 10 MEQ TABLET.ER. PO SCH (08:36)
[2016-09-29] MEDS: DIVALPROEX SPRINKLES 125 MG CAPSULE. PO SCH ×2 (08:37→20:41)
[2016-09-29] MEDS: CHOLECALCIFEROL (VITAMIN D3) 5,000 UNIT CAPSULE PO SCH (08:38)
[2016-09-29] MEDS: MULTIVITAMIN with MINERAL TABLET. PO SCH (08:38)
[2016-09-29] MEDS: METOCLOPRAMIDE 5 MG TABLET. PO SCH ×2 (08:38→16:30)
[2016-09-29] MEDS: VITAMIN B COMPLEX TABLET. PO SCH (08:38)
[2016-09-29] MEDS: PANTOPRAZOLE IV PUSH 40 MG VIAL. IVP SCH (08:45)
[2016-09-29] MEDS: MAGNESIUM OXIDE 400 MG TABLET PO SCH ×2 (08:45→20:41)
[2016-09-29] MEDS: NYSTATIN TOPICAL POWDER 15GM BOTTLE. TP SCH ×2 (08:46→20:44)
[2016-09-29] MEDS: fentaNYL PF VIAL 100 MCG/2 ML VIAL IV PRN (09:38)
--- NOTE | 2016-09-29 10:29 | PDOC ---
IM PROGRESS NOTES- Subjective Subjective No pain,dyspnea,dizziness. Objective Objective alert appropriate Vitals Vital Signs Date Time Temp Pulse Resp B/P (MAP) Pulse Ox O2 Delivery O2 Flow Rate FiO2 09/29/16 09:38 94 Room Air 09/29/16 07:36 98.2 93 20 101/46 (64) 98.2 Input & Output Intake and Output 09/29/16 07:00 Intake Total 1700 ml Balance 1700 ml Intake Oral 200 ml Blood Product 600 ml Other 900 ml # Voids 10 # Bowel Movements 3 Physical Exam Physical Exam General appearance - alert chronically ill appearing, and in no distress Mental Status - alert, oriented to person, place, and time, affect appropriate to mood Head - normal Chest - clear to auscultation, no wheezes, rales or rhonchi Heart - S1 and S2 normal Abdomen - soft, nontender, nondistended, BS+ Neurological - no acute focal neurological deficits noted. H/O CVA with residual R sided hemiparesis, R hand elbow contracture, and bilateral foot drop. Also with expressive aphasia Musculoskeletal - no muscular tenderness noted Extremities - no pedal edema Skin - warm and dry Labs Laboratory Tests Test 09/27/16 12:59 09/27/16 14:20 09/27/16 17:06 09/27/16 18:30 Glucose (Fingerstick) 107 mg/dL (70-99) 152 mg/dL (70-99) White Blood Count 8.6 x10^3/uL (4.0-11.0) Red Blood Count 3.00 x10^6/uL (4.30-5.70) Hemoglobin 7.7 g/dL (13.0-17.5) Hematocrit 24.3 % (39.0-53.0) Mean Corpuscular Volume 81 fL (79-100) Mean Corpuscular Hemoglobin 26 pg (25-35) Mean Corpuscular Hemoglobin Concent 32 g/dL (31-37) Red Cell Distribution Width 17.3 % (11.5-14.5) Platelet Count 431 x10^3/uL (140-400) Stool Occult Blood Negative (NEG) Test 09/27/16 21:59 09/28/16 04:00 09/28/16 12:44 09/28/16 16:54 Glucose (Fingerstick) 102 mg/dL (70-99) 110 mg/dL (70-99) 94 mg/dL (70-99) White Blood Count 8.8 x10^3/uL (4.0-11.0) Red Blood Count 2.83 x10^6/uL (4.30-5.70) Hemoglobin 7.2 g/dL (13.0-17.5) Hematocrit 23.5 % (39.0-53.0) Mean Corpuscular Volume 83 fL (79-100) Mean Corpuscular Hemoglobin 25 pg (25-35) Mean Corpuscular Hemoglobin Concent 31 g/dL (31-37) Red Cell Distribution Width 16.7 % (11.5-14.5) Platelet Count 425 x10^3/uL (140-400) Neutrophils (%) (Auto) 56 % (31-73) Lymphocytes (%) (Auto) 26 % (24-48) Monocytes (%) (Auto) 14 % (0-9) Eosinophils (%) (Auto) 3 % (0-3) Basophils (%) (Auto) 1 % (0-3) Neutrophils # (Auto) 4.9 x10^3uL (1.8-7.7) Lymphocytes # (Auto) 2.3 x10^3/uL (1.0-4.8) Monocytes # (Auto) 1.2 x10^3/uL (0.0-1.1) Eosinophils # (Auto) 0.2 x10^3/uL (0.0-0.7) Basophils # (Auto) 0.1 x10^3/uL (0.0-0.2) Sodium Level 135 mmol/L (136-145) Potassium Level 4.5 mmol/L (3.5-5.1) Chloride Level 104 mmol/L (98-107) Carbon Dioxide Level 22 mmol/L (21-32) Anion Gap 9 (6-14) Blood Urea Nitrogen 15 mg/dL (8-26) Creatinine 1.1 mg/dL (0.7-1.3) Estimated GFR (Cockcroft-Gault) 65.8 Glucose Level 80 mg/dL (70-99) Calcium Level 7.8 mg/dL (8.5-10.1) Test 09/28/16 20:18 09/29/16 03:37 09/29/16 07:36 Glucose (Fingerstick) 102 mg/dL (70-99) 90 mg/dL (70-99) White Blood Count 9.4 x10^3/uL (4.0-11.0) Red Blood Count 3.53 x10^6/uL (4.30-5.70) Hemoglobin 9.4 g/dL (13.0-17.5) Hematocrit 28.6 % (39.0-53.0) Mean Corpuscular Volume 81 fL (79-100) Mean Corpuscular Hemoglobin 27 pg (25-35) Mean Corpuscular Hemoglobin Concent 33 g/dL (31-37) Red Cell Distribution Width 17.0 % (11.5-14.5) Platelet Count 402 x10^3/uL (140-400) Neutrophils (%) (Auto) 63 % (31-73) Lymphocytes (%) (Auto) 22 % (24-48) Monocytes (%) (Auto) 12 % (0-9) Eosinophils (%) (Auto) 2 % (0-3) Basophils (%) (Auto) 1 % (0-3) Neutrophils # (Auto) 5.9 x10^3uL (1.8-7.7) Lymphocytes # (Auto) 2.0 x10^3/uL (1.0-4.8) Monocytes # (Auto) 1.2 x10^3/uL (0.0-1.1) Eosinophils # (Auto) 0.2 x10^3/uL (0.0-0.7) Basophils # (Auto) 0.1 x10^3/uL (0.0-0.2) Sodium Level 135 mmol/L (136-145) Potassium Level 4.3 mmol/L (3.5-5.1) Chloride Level 106 mmol/L (98-107) Carbon Dioxide Level 23 mmol/L (21-32) Anion Gap 6 (6-14) Blood Urea Nitrogen 14 mg/dL (8-26) Creatinine 1.2 mg/dL (0.7-1.3) Estimated GFR (Cockcroft-Gault) 59.5 Glucose Level 88 mg/dL (70-99) Calcium Level 7.1 mg/dL (8.5-10.1) Laboratory Tests Test 09/28/16 12:44 09/28/16 16:54 09/28/16 20:18 09/29/16 03:37 Glucose (Fingerstick) 110 mg/dL (70-99) 94 mg/dL (70-99) 102 mg/dL (70-99) White Blood Count 9.4 x10^3/uL (4.0-11.0) Red Blood Count 3.53 x10^6/uL (4.30-5.70) Hemoglobin 9.4 g/dL (13.0-17.5) Hematocrit 28.6 % (39.0-53.0) Mean Corpuscular Volume 81 fL (79-100) Mean Corpuscular Hemoglobin 27 pg (25-35) Mean Corpuscular Hemoglobin Concent 33 g/dL (31-37) Red Cell Distribution Width 17.0 % (11.5-14.5) Platelet Count 402 x10^3/uL (140-400) Neutrophils (%) (Auto) 63 % (31-73) Lymphocytes (%) (Auto) 22 % (24-48) Monocytes (%) (Auto) 12 % (0-9) Eosinophils (%) (Auto) 2 % (0-3) Basophils (%) (Auto) 1 % (0-3) Neutrophils # (Auto) 5.9 x10^3uL (1.8-7.7) Lymphocytes # (Auto) 2.0 x10^3/uL (1.0-4.8) Monocytes # (Auto) 1.2 x10^3/uL (0.0-1.1) Eosinophils # (Auto) 0.2 x10^3/uL (0.0-0.7) Basophils # (Auto) 0.1 x10^3/uL (0.0-0.2) Sodium Level 135 mmol/L (136-145) Potassium Level 4.3 mmol/L (3.5-5.1) Chloride Level 106 mmol/L (98-107) Carbon Dioxide Level 23 mmol/L (21-32) Anion Gap 6 (6-14) Blood Urea Nitrogen 14 mg/dL (8-26) Creatinine 1.2 mg/dL (0.7-1.3) Estimated GFR (Cockcroft-Gault) 59.5 Glucose Level 88 mg/dL (70-99) Calcium Level 7.1 mg/dL (8.5-10.1) Test 09/29/16 07:36 Glucose (Fingerstick) 90 mg/dL (70-99) Meds Current Medications Albuterol/ Ipratropium (Duoneb) 3 ml PRN BID PRN IH WHEEZING; Start 09/29/16 at 08:00 Fentanyl Citrate (Fentanyl 2ml Vial) 25 mcg PRN Q4HRS PRN IV PAIN Last administered on 09/29/16t 09:38; Start 09/28/16 at 21:15 Assessment Assessment 1. GIB with rectal bleeding 2. hypotension due to vascular volume depletion 3. DM II with PVD chronic insulin 4. CHF diastolic with normal EF 5. AF on Pradaxa 6. CAD on chronic ASA 325mg 7. HTN 8. h/o GIB June 2016 requiring PRC 9. non erosive gastritis 10. COPD 11. 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 diverticulosis large colon 14. internal hemorrhoids 15. IB 16. depression 17. Vitamin D def 18. h/o PE 19. moderate chronic PCL malnutrition PLAN: anemia gastroenterology consult type and screen Admit Hgb 8.7 09/28 7.2 09/29 Hb 9.4 serial hemogram OB #2 neg Bleed scan neg HTN with hypotension IVF NS 125cc/hr decrease to 40cc/hr.BP still low but hemodynamically stable. If stable tomorrow then d/c IV fluids and discharge. hold Zaroxolyn chronic med CHF diastolic IO daily weight Admit wt 195# 09/27 196# 09/28 182.2 stable. DM II FSBS SSI Levemir 10u at hs BS 102-152 CAD ASA 325mg on hold AF rate controlled Pradaxa on hold CKD III with TOMMY AVM no ATN Admit BUN 09/28 15 Cr 1.6 1.1 DVT/GI prophylaxis SCD/GALINA PPI Plan Plan For more details regarding further plans, please refer to the orders. MERVAT MORE MD Sep 29, 2016 10:29
[2016-09-29] MEDS: MIRTAZAPINE 7.5 MG TABLET. PO SCH (20:40)
[2016-09-29] MEDS: ATORVASTATIN CALCIUM 40 MG TABLET. PO SCH (20:41)
[2016-09-29] MEDS: MONTELUKAST SODIUM 10 MG TABLET. PO SCH (20:41)
[2016-09-29] MEDS: INSULIN DETEMIR 300 UNITS/3 ML INSULN.PEN. SQ SCH (20:43)
[2016-09-30 03:00] VITALS: BP 95/56
[2016-09-30 06:57] VITALS: BP 96/52
[2016-09-30 07:22] LABS: CALCIUM 7.9 mg/dL (8.5-10.1); CREATININE 0.9 mg/dL (0.7-1.3); GFR 82.9; POTASSIUM 4.4 mmol/L (3.5-5.1)
[2016-09-30 07:30] LABS: BASO % 0 % (0-3); EOS % 1 % (0-3); HEMATOCRIT 29.6 % (39.0-53.0); HEMOGLOBIN 9.4 g/dL (13.0-17.5); LYMPH # 1.3 x10^3/uL (1.0-4.8); LYMPH % 12 % (24-48); MEAN CORPUSCULAR HEMOGLOBIN 26 pg (25-35); MEAN CORPUSCULAR HGB CONC 32 g/dL (31-37); MEAN CORPUSCULAR VOLUME 81 fL (79-100); MONO % 12 % (0-9); NEUT % 75 % (31-73); PLATELET COUNT 414 x10^3/uL (140-400); RED BLOOD COUNT 3.65 x10^6/uL (4.30-5.70); WHITE BLOOD COUNT 10.9 x10^3/uL (4.0-11.0)
[2016-09-30] MEDS: INSULIN ASPART 300 UNITS/3 ML INSULN.PEN SQ SCH ×2 (07:30→11:25)
[2016-09-30] MEDS ORDERED: PANTOPRAZOLE 40 MG TABLET.DR. PO SCH (07:30)
[2016-09-30] MEDS: buPROPion SR 100 MG TABLET.SA. PO SCH (08:38)
[2016-09-30] MEDS: POTASSIUM CHLORIDE 10 MEQ TABLET.ER. PO SCH (08:38)
[2016-09-30] MEDS: LEVOTHYROXINE 50 MCG TABLET PO SCH (08:38)
[2016-09-30] MEDS: CHOLECALCIFEROL (VITAMIN D3) 5,000 UNIT CAPSULE PO SCH (08:39)
[2016-09-30] MEDS: DIVALPROEX SPRINKLES 125 MG CAPSULE. PO SCH (08:39)
[2016-09-30] MEDS: CETIRIZINE HCL 10 MG TABLET. PO SCH (08:39)
[2016-09-30] MEDS: SPIRONOLACTONE 25 MG TABLET PO SCH (08:39)
[2016-09-30] MEDS: FERROUS SULFATE 325 MG TABLET. PO SCH (08:39)
[2016-09-30] MEDS: METOCLOPRAMIDE 5 MG TABLET. PO SCH (08:39)
[2016-09-30] MEDS: MULTIVITAMIN with MINERAL TABLET. PO SCH (08:39)
[2016-09-30] MEDS: VITAMIN B COMPLEX TABLET. PO SCH (08:39)
[2016-09-30] MEDS: NYSTATIN TOPICAL POWDER 15GM BOTTLE. TP SCH (08:40)
--- NOTE | 2016-09-30 08:50 | PDOC3 ---
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 GIB with rectal bleeding likely diverticular bleed resolved 2. hypotension due to vascular volume depletion 3. DM II with PVD chronic insulin 4. CHF diastolic with normal EF 5. AF on Pradaxa 6. CAD on chronic ASA 325mg 7. HTN 8. h/o GIB June 2016 requiring PRC 9. non erosive gastritis 10. COPD 11. 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 diverticulosis large colon 14. internal hemorrhoids 15. BI 16. depression 17. Vitamin D def 18. h/o PE 19. moderate chronic PCL malnutrition 20. CKD III TOMMY VMN no ATN POA Consults Consults Rex Martines MD Procedures Procedures None Labs Labs Laboratory Tests Test 09/27/16 12:59 09/27/16 14:20 09/27/16 17:06 09/27/16 18:30 Glucose (Fingerstick) 107 mg/dL (70-99) 152 mg/dL (70-99) White Blood Count 8.6 x10^3/uL (4.0-11.0) Red Blood Count 3.00 x10^6/uL (4.30-5.70) Hemoglobin 7.7 g/dL (13.0-17.5) Hematocrit 24.3 % (39.0-53.0) Mean Corpuscular Volume 81 fL (79-100) Mean Corpuscular Hemoglobin 26 pg (25-35) Mean Corpuscular Hemoglobin Concent 32 g/dL (31-37) Red Cell Distribution Width 17.3 % (11.5-14.5) Platelet Count 431 x10^3/uL (140-400) Stool Occult Blood Negative (NEG) Test 09/27/16 21:59 09/28/16 04:00 09/28/16 12:44 09/28/16 16:54 Glucose (Fingerstick) 102 mg/dL (70-99) 110 mg/dL (70-99) 94 mg/dL (70-99) White Blood Count 8.8 x10^3/uL (4.0-11.0) Red Blood Count 2.83 x10^6/uL (4.30-5.70) Hemoglobin 7.2 g/dL (13.0-17.5) Hematocrit 23.5 % (39.0-53.0) Mean Corpuscular Volume 83 fL (79-100) Mean Corpuscular Hemoglobin 25 pg (25-35) Mean Corpuscular Hemoglobin Concent 31 g/dL (31-37) Red Cell Distribution Width 16.7 % (11.5-14.5) Platelet Count 425 x10^3/uL (140-400) Neutrophils (%) (Auto) 56 % (31-73) Lymphocytes (%) (Auto) 26 % (24-48) Monocytes (%) (Auto) 14 % (0-9) Eosinophils (%) (Auto) 3 % (0-3) Basophils (%) (Auto) 1 % (0-3) Neutrophils # (Auto) 4.9 x10^3uL (1.8-7.7) Lymphocytes # (Auto) 2.3 x10^3/uL (1.0-4.8) Monocytes # (Auto) 1.2 x10^3/uL (0.0-1.1) Eosinophils # (Auto) 0.2 x10^3/uL (0.0-0.7) Basophils # (Auto) 0.1 x10^3/uL (0.0-0.2) Sodium Level 135 mmol/L (136-145) Potassium Level 4.5 mmol/L (3.5-5.1) Chloride Level 104 mmol/L (98-107) Carbon Dioxide Level 22 mmol/L (21-32) Anion Gap 9 (6-14) Blood Urea Nitrogen 15 mg/dL (8-26) Creatinine 1.1 mg/dL (0.7-1.3) Estimated GFR (Cockcroft-Gault) 65.8 Glucose Level 80 mg/dL (70-99) Calcium Level 7.8 mg/dL (8.5-10.1) Test 09/28/16 20:18 09/29/16 03:37 09/29/16 07:36 09/29/16 11:41 Glucose (Fingerstick) 102 mg/dL (70-99) 90 mg/dL (70-99) 135 mg/dL (70-99) White Blood Count 9.4 x10^3/uL (4.0-11.0) Red Blood Count 3.53 x10^6/uL (4.30-5.70) Hemoglobin 9.4 g/dL (13.0-17.5) Hematocrit 28.6 % (39.0-53.0) Mean Corpuscular Volume 81 fL (79-100) Mean Corpuscular Hemoglobin 27 pg (25-35) Mean Corpuscular Hemoglobin Concent 33 g/dL (31-37) Red Cell Distribution Width 17.0 % (11.5-14.5) Platelet Count 402 x10^3/uL (140-400) Neutrophils (%) (Auto) 63 % (31-73) Lymphocytes (%) (Auto) 22 % (24-48) Monocytes (%) (Auto) 12 % (0-9) Eosinophils (%) (Auto) 2 % (0-3) Basophils (%) (Auto) 1 % (0-3) Neutrophils # (Auto) 5.9 x10^3uL (1.8-7.7) Lymphocytes # (Auto) 2.0 x10^3/uL (1.0-4.8) Monocytes # (Auto) 1.2 x10^3/uL (0.0-1.1) Eosinophils # (Auto) 0.2 x10^3/uL (0.0-0.7) Basophils # (Auto) 0.1 x10^3/uL (0.0-0.2) Sodium Level 135 mmol/L (136-145) Potassium Level 4.3 mmol/L (3.5-5.1) Chloride Level 106 mmol/L (98-107) Carbon Dioxide Level 23 mmol/L (21-32) Anion Gap 6 (6-14) Blood Urea Nitrogen 14 mg/dL (8-26) Creatinine 1.2 mg/dL (0.7-1.3) Estimated GFR (Cockcroft-Gault) 59.5 Glucose Level 88 mg/dL (70-99) Calcium Level 7.1 mg/dL (8.5-10.1) Test 09/29/16 17:24 09/29/16 20:39 09/30/16 06:35 09/30/16 06:59 Glucose (Fingerstick) 73 mg/dL (70-99) 118 mg/dL (70-99) 109 mg/dL (70-99) White Blood Count 10.9 x10^3/uL (4.0-11.0) Red Blood Count 3.65 x10^6/uL (4.30-5.70) Hemoglobin 9.4 g/dL (13.0-17.5) Hematocrit 29.6 % (39.0-53.0) Mean Corpuscular Volume 81 fL (79-100) Mean Corpuscular Hemoglobin 26 pg (25-35) Mean Corpuscular Hemoglobin Concent 32 g/dL (31-37) Red Cell Distribution Width 17.0 % (11.5-14.5) Platelet Count 414 x10^3/uL (140-400) Neutrophils (%) (Auto) 75 % (31-73) Lymphocytes (%) (Auto) 12 % (24-48) Monocytes (%) (Auto) 12 % (0-9) Eosinophils (%) (Auto) 1 % (0-3) Basophils (%) (Auto) 0 % (0-3) Neutrophils # (Auto) 8.1 x10^3uL (1.8-7.7) Lymphocytes # (Auto) 1.3 x10^3/uL (1.0-4.8) Monocytes # (Auto) 1.3 x10^3/uL (0.0-1.1) Eosinophils # (Auto) 0.1 x10^3/uL (0.0-0.7) Basophils # (Auto) 0.0 x10^3/uL (0.0-0.2) Sodium Level 135 mmol/L (136-145) Potassium Level 4.4 mmol/L (3.5-5.1) Chloride Level 104 mmol/L (98-107) Carbon Dioxide Level 21 mmol/L (21-32) Anion Gap 10 (6-14) Blood Urea Nitrogen 12 mg/dL (8-26) Creatinine 0.9 mg/dL (0.7-1.3) Estimated GFR (Cockcroft-Gault) 82.9 Glucose Level 108 mg/dL (70-99) Calcium Level 7.9 mg/dL (8.5-10.1) Medications Medications Medications reviewed and reconciled for discharge. Brief hospital course Brief hospital course This 70 year old male who presented with anemia was admitted. The following is a summary of his treatment: anemia gastroenterology consult type and screen Admit Hgb 8.7 09/28 7.2 09/29 Hb 9.4 09/30 9.4 serial hemogram OB #2 neg Bleed scan neg PRC x2 09/28/16 HTN with hypotension IVF NS 125cc/hr decrease to 40cc/hr. BP still low but hemodynamically stable. If stable tomorrow then d/c IV fluids and discharge. hold Zaroxolyn chronic med CHF diastolic IO daily weight Admit wt 195# 09/27 196# 09/28 182.2 09/30 188.06 stable. DM II FSBS SSI Levemir 10u at hs BS 73-135 CAD ASA 325mg on hold AF rate controlled Pradaxa on hold CKD III with TOMMY AVM no ATN Admit BUN 29 09/30 12 Cr 1.6 0.9 DVT/GI prophylaxis SCD/GALINA PPI For more details regarding the past history, family history, social history, surgical history and other details, please refer to History and Physical. His BP remains low but he is hemodynamically stable. Will plan DC to [facility] today. Zaroxlyn, ASA and Pradaxa remain on hold. Facility MD to resume. Please see DC orders Subjective Sad, wants to go back to [place] Objective alert appropriate Vitals Vital Signs Date Time Temp Pulse Resp B/P (MAP) Pulse Ox O2 Delivery O2 Flow Rate FiO2 09/30/16 06:57 98.1 87 20 96/52 (67) 93 Room Air 98.1 Physical Exam General appearance - alert chronically ill appearing, and in no distress Mental Status - alert, oriented to person, place, and time, affect appropriate to mood Head - normal Chest - clear to auscultation, no wheezes, rales or rhonchi Heart - S1 and S2 normal Abdomen - soft, nontender, nondistended, BS+ Neurological - no acute focal neurological deficits noted. H/O CVA with residual R sided hemiparesis, R hand elbow contracture, and bilateral foot drop. Also with expressive aphasia Musculoskeletal - no muscular tenderness noted Extremities - no pedal edema Skin - warm and dry Medications Medications reviewed. Allergy Allergies Coded Allergies Type Severity Reaction Last Updated Verified Penicillins Allergy Intermediate Rash 06/25/16 Yes Follow up Facility MD to assume care Disposition: Residential facility (no PT or OT) Comments Discharge Management - 35 minutes. For other details please refer to discharge instructions MERVAT MORE MD 09/30/16 0940: IM DISCHARGE & PROGRESS NOTES Brief hospital course Comments BP low but stable hemodynamically.Hb stable. The patient was seen and examined by me. Chart reviewed and plan of care formulated. Discussed with, reviewed and agree with LINUX SYSTEMS ANALYST's notes, plan of care and orders with modifications as necessary. Discharge Management - 35 minutes. EFRA CARRASQUILLO APRN Sep 30, 2016 08:50 MERVAT MORE MD Sep 30, 2016 09:40
[2016-09-30] MEDS: MAGNESIUM OXIDE 400 MG TABLET PO SCH (09:00)
[2016-09-30] MEDS: SENNOSIDES 8.6 MG TABLET PO SCH (09:00)
[2016-09-30 10:40] VITALS: BP 89/56
--- NOTE | 2016-09-30 12:40 | PDOC ---
G I PROGRESS NOTE Reason for Follow-up Rectal bleeding Subjective Tolerating PO/no further bleeding Physical Exam Lungs clear CV S1 S2 ABD +BS, soft, nontender Review of Relevant I have reviewed the following items tyler (where applicable) has been applied. Labs Laboratory Tests Test 09/28/16 12:44 09/28/16 16:54 09/28/16 20:18 09/29/16 03:37 Glucose (Fingerstick) 110 mg/dL (70-99) 94 mg/dL (70-99) 102 mg/dL (70-99) White Blood Count 9.4 x10^3/uL (4.0-11.0) Red Blood Count 3.53 x10^6/uL (4.30-5.70) Hemoglobin 9.4 g/dL (13.0-17.5) Hematocrit 28.6 % (39.0-53.0) Mean Corpuscular Volume 81 fL (79-100) Mean Corpuscular Hemoglobin 27 pg (25-35) Mean Corpuscular Hemoglobin Concent 33 g/dL (31-37) Red Cell Distribution Width 17.0 % (11.5-14.5) Platelet Count 402 x10^3/uL (140-400) Neutrophils (%) (Auto) 63 % (31-73) Lymphocytes (%) (Auto) 22 % (24-48) Monocytes (%) (Auto) 12 % (0-9) Eosinophils (%) (Auto) 2 % (0-3) Basophils (%) (Auto) 1 % (0-3) Neutrophils # (Auto) 5.9 x10^3uL (1.8-7.7) Lymphocytes # (Auto) 2.0 x10^3/uL (1.0-4.8) Monocytes # (Auto) 1.2 x10^3/uL (0.0-1.1) Eosinophils # (Auto) 0.2 x10^3/uL (0.0-0.7) Basophils # (Auto) 0.1 x10^3/uL (0.0-0.2) Sodium Level 135 mmol/L (136-145) Potassium Level 4.3 mmol/L (3.5-5.1) Chloride Level 106 mmol/L (98-107) Carbon Dioxide Level 23 mmol/L (21-32) Anion Gap 6 (6-14) Blood Urea Nitrogen 14 mg/dL (8-26) Creatinine 1.2 mg/dL (0.7-1.3) Estimated GFR (Cockcroft-Gault) 59.5 Glucose Level 88 mg/dL (70-99) Calcium Level 7.1 mg/dL (8.5-10.1) Test 09/29/16 07:36 09/29/16 11:41 09/29/16 17:24 09/29/16 20:39 Glucose (Fingerstick) 90 mg/dL (70-99) 135 mg/dL (70-99) 73 mg/dL (70-99) 118 mg/dL (70-99) Test 09/30/16 06:35 09/30/16 06:59 09/30/16 10:52 White Blood Count 10.9 x10^3/uL (4.0-11.0) Red Blood Count 3.65 x10^6/uL (4.30-5.70) Hemoglobin 9.4 g/dL (13.0-17.5) Hematocrit 29.6 % (39.0-53.0) Mean Corpuscular Volume 81 fL (79-100) Mean Corpuscular Hemoglobin 26 pg (25-35) Mean Corpuscular Hemoglobin Concent 32 g/dL (31-37) Red Cell Distribution Width 17.0 % (11.5-14.5) Platelet Count 414 x10^3/uL (140-400) Neutrophils (%) (Auto) 75 % (31-73) Lymphocytes (%) (Auto) 12 % (24-48) Monocytes (%) (Auto) 12 % (0-9) Eosinophils (%) (Auto) 1 % (0-3) Basophils (%) (Auto) 0 % (0-3) Neutrophils # (Auto) 8.1 x10^3uL (1.8-7.7) Lymphocytes # (Auto) 1.3 x10^3/uL (1.0-4.8) Monocytes # (Auto) 1.3 x10^3/uL (0.0-1.1) Eosinophils # (Auto) 0.1 x10^3/uL (0.0-0.7) Basophils # (Auto) 0.0 x10^3/uL (0.0-0.2) Sodium Level 135 mmol/L (136-145) Potassium Level 4.4 mmol/L (3.5-5.1) Chloride Level 104 mmol/L (98-107) Carbon Dioxide Level 21 mmol/L (21-32) Anion Gap 10 (6-14) Blood Urea Nitrogen 12 mg/dL (8-26) Creatinine 0.9 mg/dL (0.7-1.3) Estimated GFR (Cockcroft-Gault) 82.9 Glucose Level 108 mg/dL (70-99) Calcium Level 7.9 mg/dL (8.5-10.1) Glucose (Fingerstick) 109 mg/dL (70-99) 112 mg/dL (70-99) Laboratory Tests Test 09/29/16 17:24 09/29/16 20:39 09/30/16 06:35 09/30/16 06:59 Glucose (Fingerstick) 73 mg/dL (70-99) 118 mg/dL (70-99) 109 mg/dL (70-99) White Blood Count 10.9 x10^3/uL (4.0-11.0) Red Blood Count 3.65 x10^6/uL (4.30-5.70) Hemoglobin 9.4 g/dL (13.0-17.5) Hematocrit 29.6 % (39.0-53.0) Mean Corpuscular Volume 81 fL (79-100) Mean Corpuscular Hemoglobin 26 pg (25-35) Mean Corpuscular Hemoglobin Concent 32 g/dL (31-37) Red Cell Distribution Width 17.0 % (11.5-14.5) Platelet Count 414 x10^3/uL (140-400) Neutrophils (%) (Auto) 75 % (31-73) Lymphocytes (%) (Auto) 12 % (24-48) Monocytes (%) (Auto) 12 % (0-9) Eosinophils (%) (Auto) 1 % (0-3) Basophils (%) (Auto) 0 % (0-3) Neutrophils # (Auto) 8.1 x10^3uL (1.8-7.7) Lymphocytes # (Auto) 1.3 x10^3/uL (1.0-4.8) Monocytes # (Auto) 1.3 x10^3/uL (0.0-1.1) Eosinophils # (Auto) 0.1 x10^3/uL (0.0-0.7) Basophils # (Auto) 0.0 x10^3/uL (0.0-0.2) Sodium Level 135 mmol/L (136-145) Potassium Level 4.4 mmol/L (3.5-5.1) Chloride Level 104 mmol/L (98-107) Carbon Dioxide Level 21 mmol/L (21-32) Anion Gap 10 (6-14) Blood Urea Nitrogen 12 mg/dL (8-26) Creatinine 0.9 mg/dL (0.7-1.3) Estimated GFR (Cockcroft-Gault) 82.9 Glucose Level 108 mg/dL (70-99) Calcium Level 7.9 mg/dL (8.5-10.1) Test 09/30/16 10:52 Glucose (Fingerstick) 112 mg/dL (70-99) Medications Current Medications Sodium Chloride 1,000 ml @ 1,000 mls/hr Q1H IV Last administered on 09/26/16 10:23; Start 09/26/16 at 10:23; Stop 09/26/16 at 11:22; Status DC Ondansetron HCl (Zofran) 4 mg 1X ONCE IV Last administered on 09/26/16 10:51 ; Start 09/26/16 at 10:30; Stop 09/26/16 at 10:31; Status DC Pantoprazole Sodium (Protonix Vial) 40 mg DAILYAC IVP Last administered on 09/29 08:45; Start 09/27/16 at 07:30; Stop 09/29/16 at 11:11; Status DC Pantoprazole Sodium 80 mg/ Sodium Chloride 100 ml @ 10 mls/hr 1X ONCE IV Last administered on 09/26/16 10:51; Start 09/26/16 at 11:00; Stop 09/26/16 at 20:59; Status DC Pantoprazole Sodium (Protonix Vial) 40 mg STK-MED ONCE IVP ; Start 09/26/16 at 10:49; Stop 09/26/16 at 10:50; Status DC Ondansetron HCl (Zofran) 4 mg PRN Q8HRS PRN IV NAUSEA/VOMITING; Start 09/26/16 at 11:45; Stop 09/26/16 at 14:14; Status DC Sodium Chloride 1,000 ml @ 100 mls/hr Q10H IV Last administered on 09/27/16 06:16; Start 09/26/16 at 11:34; Stop 09/27/16 at 11:33; Status DC Acetaminophen (Tylenol) 650 mg PRN Q4HRS PRN PO FEVER; Start 09/26/16 at 11:45 ; Stop 09/26/16 at 14:14; Status DC Ondansetron HCl (Zofran) 4 mg PRN Q8HRS PRN IV NAUSEA/VOMITING; Start 09/26/16 at 14:00 Acetaminophen (Tylenol) 650 mg PRN Q4HRS PRN PO FEVER Last administered on 09/28 09:37; Start 09/26/16 at 14:00 Acetaminophen (Tylenol) 325 mg PRN Q6HRS PRN PO MILD PAIN / TEMP; Start at 14:00 Atorvastatin Calcium (Lipitor) 40 mg QHS PO Last administered on 09/29/16 20: 41; Start 09/26/16 at 21:00 Bupropion HCl (Wellbutrin Sr) 200 mg DAILY PO Last administered on 09/30/16 08 :38; Start 09/27/16 at 09:00 Vitamin D (Vitamin D3) 5,000 unit DAILY PO Last administered on 09/30/16 08:39 ; Start 09/27/16 at 09:00 Diphenhydramine HCl (Benadryl) 25 mg PRN Q8HRS PRN PO ITCHING; Start 09/26/16 at 14:00 Divalproex Sodium (Depakote Sprinkles) 125 mg DAILY PO Last administered on 08:39; Start 09/27/16 at 09:00 Divalproex Sodium (Depakote Sprinkles) 250 mg HS PO Last administered on 20:41; Start 09/26/16 at 21:00 Ferrous Sulfate (Feosol) 325 mg DAILYWBKFT PO Last administered on 09/30/16 08 :39; Start 09/27/16 at 08:00 Albuterol/ Ipratropium (Duoneb) 3 ml RTBID IH ; Start 09/26/16 at 20:00; Stop at 10:17; Status DC Albuterol Sulfate (Ventolin Neb Soln) 2.5 mg PRN QID PRN NEB SHORTNESS OF BREATH; Start 09/26/16 at 14:30 Levothyroxine Sodium (Synthroid) 50 mcg DAILYAC PO Last administered on 08:38; Start 09/27/16 at 07:30 Magnesium Oxide (Magnesium Oxide) 400 mg BID PO Last administered on 09/30/16 09:00; Start 09/26/16 at 21:00 Metoclopramide HCl (Reglan) 5 mg BIDAC PO Last administered on 09/30/16 08:39 ; Start 09/26/16 at 16:30 Mirtazapine (Remeron) 7.5 mg QHS PO Last administered on 09/29/16 20:40; Start 09/26/16 at 21:00 Montelukast Sodium (Singulair) 10 mg HS PO Last administered on 09/29/16 20:41 ; Start 09/26/16 at 21:00 Sodium Monofluorophosphate (Fleet Adult) 133 ml PRN DAILY PRN RC CONSTIPATION; Start 09/26/16 at 14:00 Nitroglycerin (Nitrostat) 0.4 mg PRN Q5MIN PRN SL CHEST PAIN; Start 09/26/16 at 14:00 Ondansetron HCl (Zofran Odt) 4 mg PRN Q6HRS PRN PO NAUSEA/VOMITING; Start 09/26 at 14:00 Polyethylene Glycol (miraLAX PACKET) 17 gm PRN DAILY PRN PO CONSTIPATION; Start 09/26/16 at 14:00 Potassium Chloride (Klor-Con) 10 meq DAILYWBKFT PO Last administered on 08:38; Start 09/27/16 at 08:00 Spironolactone (Aldactone) 25 mg BID PO Last administered on 09/30/16 08:39; Start 09/26/16 at 21:00 Insulin Detemir (Levemir) 10 units QHS SQ Last administered on 09/29/16 20:43 ; Start 09/26/16 at 21:00 Multivitamins (Thera M Plus) 1 tab DAILY PO Last administered on 09/30/16 08: 39; Start 09/27/16 at 09:00 Nystatin (Nystop) 1 chaparrita BID TP Last administered on 09/30/16 08:40; Start at 21:00 Sennosides (Senna) 17.2 mg BID PO Last administered on 09/29/16 20:41; Start 09/26/16 at 15:00 Vitamin B Complex (Turner B) 1 tab DAILY PO Last administered on 09/30/16 08:39 ; Start 09/26/16 at 15:00 Cetirizine HCl (ZyrTEC) 10 mg DAILY PO Last administered on 09/30/16 08:39; Start 09/27/16 at 09:00 Insulin Aspart (NovoLOG) TIDAC SQ Last administered on 09/27/16 17:10; Start 09/26/16 at 16:30 Sodium Chloride 500 ml @ 500 mls/hr 1X ONCE IV Last administered on 08:26; Start 09/27/16 at 08:15; Stop 09/27/16 at 09:14; Status DC Potassium Chloride/Sodium Chloride 1,000 ml @ 40 mls/hr Q24H IV Last administered on 09/30/16 01:50; Start 09/27/16 at 08:15 Sodium Chloride 500 ml @ 500 mls/hr 1X ONCE IV Last administered on 08:41; Start 09/28/16 at 07:30; Stop 09/28/16 at 08:29; Status DC Albuterol/ Ipratropium (Duoneb) 3 ml PRN BID PRN IH WHEEZING; Start 09/29/16 at 08:00 Fentanyl Citrate (Fentanyl 2ml Vial) 25 mcg PRN Q4HRS PRN IV PAIN Last administered on 09/29/16 09:38; Start 09/28/16 at 21:15 Pantoprazole Sodium (Protonix) 40 mg DAILYAC PO Last administered on 09/30/16 08:38; Start 09/30/16 at 07:30 Active Scripts Active Novolog Flexpen (Insulin Aspart) 100 Unit/1 Ml Insuln.pen 0-8 Units SQ TIDAC BS <150=0; 151-200=2unit, 201-250=3unit, 251-300=4unit, 301-350=6unit, 351-400=8unit. >401 call MD Estrada (Sennosides) 8.6 Mg Tablet 17.2 Mg PO BID Vitamin B Complex 1 Each Tablet 1 Tab PO DAILY Vitamin D3 (Cholecalciferol (Vitamin D3)) 5,000 Unit Capsule 5,000 Unit PO DAILY Potassium Chloride 10 Meq Tablet.er 10 Meq PO DAILY Reported Ferrous Sulfate 325 Mg Tablet 1 Tab PO DAILY Cetaphil Moisturizing Cream (Gly/Dimeth/Petrolat,Wht/Water) 85 Gm Cream..g. 85 Gm TP Zyrtec (Cetirizine Hcl) 10 Mg Tablet 5 Mg PO HS Zinc Oxide 30 Gm Oint...g. 30 Gm TP BID bilat inner thighs, buttocks, scrotum Levothyroxine Sodium 50 Mcg Tablet 50 Mcg PO DAILYAC Spironolactone 25 Mg Tablet 1 Tab PO BID Nexium Packet (Esomeprazole Magnesium) 40 Mg Suspdr.pkt 40 Mg PO DAILYAC Fleet Enema (Na Phos,M-B/Na Phos,Di-Ba) 133 Ml Enema 1 Each RC DAILY PRN Fish Oil 1,000 Mg Capsule ([place]-3 Fatty Acids/Fish Oil) 1 Each Capsule 2 Cap PO BID Duoneb 0.5-3(2.5) Mg/3 Ml (Albuterol/Ipratropium) 3 Ml Ampul.neb 3 Ml NEB QID PRN Divalproex Sodium 125 Mg Cap.sprink 125 Mg PO DAILY Aspirin Ec (Aspirin) 325 Mg Tablet.dr 1 Tab PO DAILY Ondansetron Odt (Ondansetron) 4 Mg Tab.rapdis 4 Mg PO PRN Q6HRS PRN Montelukast Sodium Tablet (Montelukast Sodium) 10 Mg Tablet 1 Tab PO HS Nystatin 1 Each Powder.ea. 1 Each TOP BID Lipitor (Atorvastatin Calcium) 40 Mg Tablet 1 Tab PO QHS Levemir (Insulin Detemir) 100 Unit/1 Ml Vial 10 Unit SQ QHS Benadryl (Diphenhydramine Hcl) 25 Mg Capsule 25 Mg PO PRN Q8HRS PRN Tylenol (Acetaminophen) 325 Mg Tablet 325 Mg PO PRN DAILY Remeron (Mirtazapine) 15 Mg Tab.rapdis 7.5 Mg PO HS NITROGLYCERIN SubLingual (Nitroglycerin) 0.4 Mg Tab.subl 0.4 Mg SL Miralax (Polyethylene Glycol 3350) 17 Gm Powd.pack 17 Gm PO DAILY PRN Multi Vitamin Daily (Multivitamin) 1 Each Tablet 1 Each PO DAILY Duoneb 0.5 Mg-3 Mg/3 Ml Soln (Ipratropium/Albuterol Sulfate) 3 Ml Ampul.neb 3 Ml IH BID Depakote Sprinkle (Divalproex Sodium) 125 Mg Cap.sprink 250 Mg PO HS Wellbutrin (Bupropion Hcl) 100 Mg Tablet 200 Mg PO DAILY Reglan (Metoclopramide Hcl) 5 Mg Tablet 5 Mg PO BID Mag-Oxide (Magnesium Oxide) 400 Mg Tablet 400 Mg PO BID Vitals/I & O Vital Sign - Last 24 Hours 09/29/16 09/29/16 09/29/16 09/29/16 13:57 14:49 19:00 19:58 Temp 98.1 98.1 98.1 98.1 Pulse 82 90 Resp 24 20 B/P (MAP) 122/70 (87) 107/65 (79) 91/54 (66) Pulse Ox 100 94 O2 Delivery Room Air Room Air Room Air 09/29/16 09/30/16 09/30/16 09/30/16 22:50 03:00 06:57 08:00 Temp 98.4 98.1 98.1 98.4 98.1 98.1 Pulse 92 89 87 Resp 20 20 20 B/P (MAP) 97/51 (66) 95/56 (69) 96/52 (67) Pulse Ox 94 92 93 O2 Delivery Room Air Room Air Room Air Room Air 09/30/16 10:40 Temp 98.1 98.1 Pulse 87 Resp 20 B/P (MAP) 89/56 (67) Pulse Ox 93 O2 Delivery Room Air Intake and Output 09/29/16 09/29/16 09/30/16 15:00 23:00 07:00 Output Total 0 ml Balance 0 ml Problem List Problems Medical Problems: (1) Acute GI bleeding Status: Acute (2) Hemodynamic instability Status: Acute (3) Severe protein-calorie malnutrition Status: Acute Assessment Acute blood loss anemia- with hx diverticulosis, most likely acute self-limited diverticular bleed, Hg stable, disposition plans per primary PROPOTIS MCKEON MD Sep 30, 2016 12:40
== END 2016-09-30 13:35 | DRG 377 ==
LOC: ER 10:18 → 1 WEST ICU 10:39 → 6 SOUTH 09-28 14:35
PROVIDERS: ADMIT Internal Medicine; ATTEND Internal Medicine
PROC: 30233N1 Transfusion of Nonautologous Red Blood Cells into Peripheral Vein, Percutaneous Approach (ICD-10-PCS; principal; 2016-09-26)
DX: K57.31 Diverticulosis of large intestine without perforation or abscess with bleeding (principal); E43 Unspecified severe protein-calorie malnutrition; N17.0 Acute kidney failure with tubular necrosis; D62 Acute posthemorrhagic anemia; I13.0 Hypertensive heart and chronic kidney disease with heart failure and stage 1 through stage 4 chronic kidney disease, or unspecified chronic kidney disease; R47.01 Aphasia; I69.351 Hemiplegia and hemiparesis following cerebral infarction affecting right dominant side; I50.30 Unspecified diastolic (congestive) heart failure; I95.9 Hypotension, unspecified; E03.9 Hypothyroidism, unspecified; E11.22 Type 2 diabetes mellitus with diabetic chronic kidney disease; E11.51 Type 2 diabetes mellitus with diabetic peripheral angiopathy without gangrene; Z68.31 Body mass index [BMI] 31.0-31.9, adult; E78.5 Hyperlipidemia, unspecified; F32.9 Major depressive disorder, single episode, unspecified; F41.1 Generalized anxiety disorder; I25.10 Atherosclerotic heart disease of native coronary artery without angina pectoris; I48.91 Unspecified atrial fibrillation; J44.9 Chronic obstructive pulmonary disease, unspecified; K21.9 Gastro-esophageal reflux disease without esophagitis; N18.3 Chronic kidney disease, stage 3 (moderate); E55.9 Vitamin D deficiency, unspecified; E78.00 Pure hypercholesterolemia, unspecified; K64.8 Other hemorrhoids; K29.70 Gastritis, unspecified, without bleeding; R13.10 Dysphagia, unspecified; E86.9 Volume depletion, unspecified; E87.6 Hypokalemia; K59.00 Constipation, unspecified; Q27.33 Arteriovenous malformation of digestive system vessel; Z86.711 Personal history of pulmonary embolism; Z88.0 Allergy status to penicillin; Z87.01 Personal history of pneumonia (recurrent)
CPT/HCPCS: 36415; 71010; 78278; 80048; 80053; 82274; 82962; 83690; 83735; 85027; 85610; 85730; 86850; 86900; 86901; 86920; 87641; 93005; 94250; 94760; 96365; 96374; 96375; A9560; C9113; J1815; J2405; J3010; J7030; J7040; J8597; P9016; 99285-25

== ENCOUNTER 2016-10-02 22:44 | Inpatient (IN) | payer MEDICARE, OTHER ==
[~2016-10-02] VITALS: Ht 175.3 cm; Wt 81.2 kg
[~2016-10-02 22:44] MED LIST changes: +CHOL5000 PO; +DABI150C PO; +FERR-26 PO; +INSU100I17 SQ; +SENN-79 PO; +VITA1TAB3 PO; +[UNRECOGNIZED DRUG - CODE] TP
[2016-10-02 23:12] LABS: POTASSIUM ISTAT 4.1 mmol/L (3.5-5.0)
[2016-10-02 23:13] LABS: BASO # 0.1 x10^3/uL (0.0-0.2); BASO % 1 % (0-3); EOS % 3 % (0-3); HEMATOCRIT 31.6 % (39.0-53.0); HEMOGLOBIN 10.1 g/dL (13.0-17.5); LYMPH # 1.7 x10^3/uL (1.0-4.8); LYMPH % 16 % (24-48); MEAN CORPUSCULAR HEMOGLOBIN 26 pg (25-35); MEAN CORPUSCULAR HGB CONC 32 g/dL (31-37); MEAN CORPUSCULAR VOLUME 80 fL (79-100); MONO % 9 % (0-9); NEUT % 72 % (31-73); PLATELET COUNT 483 x10^3/uL (140-400); RED BLOOD COUNT 3.96 x10^6/uL (4.30-5.70); WHITE BLOOD COUNT 11.1 x10^3/uL (4.0-11.0)
--- NOTE | 2016-10-02 23:22 | PHYS DOC ---
Past Medical History Past Medical History: Anxiety, CAD, CHF, Constipation, COPD, CVA, Depression, Diabetes-Type II, Diverticulosis, GERD, High Cholesterol, Hypertension, Other Additional Past Medical Histor: internal hemorrhoids, ARF, hypokalemia, dysphagia, PVD, hemiplegia, Past Surgical History: Other Additional Past Surgical Histo: unknown Alcohol Use: None Drug Use: None Adult General Chief Complaint Chief Complaint: RAPID HEART RATE HPI HPI Patient is a 70 year old male presenting to ED for evaluation of chest pain and tachycardia. Pain is in his lower sternum achy with no radiation diaphoresis nausea vomiting or shortness of breath. Patient has a history of stroke. He is quite tachycardic at 175 bpm and it is narrow and appears regular but he denies ever having any SVT. Patient was gone ahead and given adenosine with cardioversion to normal sinus rhythm. Review of Systems Review of Systems Constitutional: Denies fever or chills [] Eyes: Denies change in visual acuity, redness, or eye pain [] HENT: Denies nasal congestion or sore throat [] Respiratory: Denies cough or shortness of breath [] Cardiovascular: + CP GI: Denies abdominal pain, nausea, vomiting, bloody stools or diarrhea [] : Denies dysuria or hematuria [] Musculoskeletal: Denies back pain or joint pain [] Integument: Denies rash or skin lesions [] Neurologic: Denies headache, focal weakness or sensory changes [] Current Medications Current Medications Current Medications Medications (Trade) Dose Ordered Sig/Vivienne Start Time Stop Time Status Last Admin Dose Admin Adenosine (Adenocard) 12 mg 1X ONCE 10/02/16 23:30 10/02/16 23:31 DC 10/02/16 23:25 12 MG Ceftriaxone Sodium 50 ml @ 100 mls/hr 1X ONCE 10/02/16 23:45 10/03/16 00:14 UNV Fentanyl Citrate (Fentanyl 2ml Vial) 50 mcg PRN Q2HR PRN 10/02/16 23:30 10/03/16 23:29 Ondansetron HCl (Zofran) 4 mg PRN Q8HRS PRN 10/02/16 23:30 10/03/16 23:29 Sodium Chloride 1,000 ml @ 1,000 mls/hr 1X ONCE 10/02/16 23:30 10/03/16 00:29 10/02/16 23:19 1,000 MLS/HR Allergies Allergies Allergies Coded Allergies Type Severity Reaction Last Updated Verified Penicillins Allergy Intermediate Rash 06/25/16 Yes Physical Exam Physical Exam Constitutional: Well developed, well nourished, no acute distress, non-toxic appearance. [] HENT: Normocephalic, atraumatic, bilateral external ears normal, oropharynx moist, no oral exudates, nose normal. [] Eyes: PERRLA, EOMI, conjunctiva normal, no discharge. [] Neck: Normal range of motion, no tenderness, supple, no stridor. [] Cardiovascular:Heart rate regular rhythm but tachycardic in the 170s, no murmur [] Lungs & Thorax: Bilateral breath sounds clear to auscultation [] Abdomen: Bowel sounds normal, soft, no tenderness, no masses, no pulsatile masses. [] Skin: Warm, dry, no erythema, no rash. [] Back: No tenderness, no CVA tenderness. [] Extremities: No tenderness, no cyanosis, no clubbing, ROM intact, no edema. [] Neurologic: Alert and oriented X 3 Current Patient Data Vital Signs Vital Signs Date Time Temp Pulse Resp B/P (MAP) Pulse Ox O2 Delivery O2 Flow Rate FiO2 10/02/16 22:44 99.7 174 26 108/52 (70) 97 Room Air 99.7 Lab Values Laboratory Tests Test 10/02/16 23:00 10/02/16 23:03 White Blood Count 11.1 x10^3/uL (4.0-11.0) H Red Blood Count 3.96 x10^6/uL (4.30-5.70) L Hemoglobin 10.1 g/dL (13.0-17.5) L Hematocrit 31.6 % (39.0-53.0) L Mean Corpuscular Volume 80 fL (79-100) Mean Corpuscular Hemoglobin 26 pg (25-35) Mean Corpuscular Hemoglobin Concent 32 g/dL (31-37) Red Cell Distribution Width 17.0 % (11.5-14.5) H Platelet Count 483 x10^3/uL (140-400) H Neutrophils (%) (Auto) 72 % (31-73) Lymphocytes (%) (Auto) 16 % (24-48) L Monocytes (%) (Auto) 9 % (0-9) Eosinophils (%) (Auto) 3 % (0-3) Basophils (%) (Auto) 1 % (0-3) Neutrophils # (Auto) 8.0 x10^3uL (1.8-7.7) H Lymphocytes # (Auto) 1.7 x10^3/uL (1.0-4.8) Monocytes # (Auto) 1.0 x10^3/uL (0.0-1.1) Eosinophils # (Auto) 0.3 x10^3/uL (0.0-0.7) Basophils # (Auto) 0.1 x10^3/uL (0.0-0.2) Sodium Level 138 mmol/L (136-145) Potassium Level 4.3 mmol/L (3.5-5.1) Chloride Level 103 mmol/L (98-107) Carbon Dioxide Level 22 mmol/L (21-32) Anion Gap 13 (6-14) 15 mmol/L (6-14) H Blood Urea Nitrogen 17 mg/dL (8-26) Creatinine 1.3 mg/dL (0.7-1.3) Estimated GFR (Cockcroft-Gault) 54.3 BUN/Creatinine Ratio 13 (6-20) Glucose Level 140 mg/dL (70-99) H 138 mg/dL (70-99) H Calcium Level 8.4 mg/dL (8.5-10.1) L Magnesium Level 1.6 mg/dL (1.8-2.4) L Total Bilirubin 0.2 mg/dL (0.2-1.0) Aspartate Amino Transferase (AST) 25 U/L (15-37) Alanine Aminotransferase (ALT) 24 U/L (16-63) Alkaline Phosphatase 105 U/L (46-116) Creatine Kinase 74 U/L (39-308) Total Protein 6.8 g/dL (6.4-8.2) Albumin 2.1 g/dL (3.4-5.0) L Albumin/Globulin Ratio 0.4 (1.0-1.7) L Lipase 296 U/L (73-393) POC Hemoglobin 10.9 g/dL (14-18) L POC Hematocrit 32 % (37-52) L POC Sodium 137 mmol/L (135-145) POC Potassium 4.1 mmol/L (3.5-5.0) POC Chloride 105 mmol/L (98-110) POC Total CO2 22 mmol/L (23-32) L POC Blood Urea Nitrogen 16 mg/dL (8-26) POC Creatinine 1.2 mg/dL (0.5-1.4) POC Ionized Calcium (Eduardo) 1.11 mmol/L (1.13-1.32) L Laboratory Tests 10/02/16 23:00 Laboratory Tests 10/02/16 23:00 10/02/16 23:03 EKG EKG Regular narrow complex rhythm at 175 bpm. Radiology/Procedures Radiology/Procedures Chest x-ray shows normal mediastinum borderline cardiomegaly with no free air pneumothorax or opacity Course & Med Decision Making Course & Med Decision Making Patient will be admitted for chest pain and elevated troponin and SVT for further cardiac monitoring. Cytosis and tachycardia with possible infection he will be given a dose of Rocephin. I will not treat with anticoagulation at this time as his chest pain is not typical and the troponin is likely elevated from his SVT. Patient will get aspirin dose with his troponins trended and he will be admitted to the CVC. Patient admitted in guarded condition. Critical care time of 35 minutes. Dragon Disclaimer Dragon Disclaimer This electronic medical record was generated, in whole or in part, using a voice recognition dictation system. Departure Departure Impression: Primary Impression: SVT (supraventricular tachycardia) Additional Impressions: Chest pain Elevated troponin Sepsis Disposition: ADMITTED INPATIENT Admitting Physician: Linda Tierney Condition: GUARDED Referrals: ORLANDO CHEEMA (PCP) Problem Qualifiers RACHELE DELGADO DO Oct 02, 2016 23:22
[2016-10-02 23:27] LABS: CALCIUM 8.4 mg/dL (8.5-10.1); CREATININE 1.3 mg/dL (0.7-1.3); GFR 54.3; POTASSIUM 4.3 mmol/L (3.5-5.1)
[2016-10-02] MEDS ORDERED: IV NORMAL SALINE 1000ML BAG 1,000 ML IV ONE (23:30)
[2016-10-02] MEDS ORDERED: ONDANSETRON PF 4 MG/2 ML VIAL. IV PRN (23:30)
[2016-10-02] MEDS ORDERED: ADENOSINE 6 MG/2 ML VIAL. IV ONE (23:30)
[2016-10-02] MEDS ORDERED: fentaNYL PF VIAL 100 MCG/2 ML VIAL IV PRN (23:30)
[2016-10-02 23:33] LABS: ALBUMIN 2.1 g/dL (3.4-5.0); ALBUMIN/GLOBULIN RATIO 0.4 (1.0-1.7); MAGNESIUM 1.6 mg/dL (1.8-2.4); TOTAL BILIRUBIN 0.2 mg/dL (0.2-1.0); TOTAL PROTEIN 6.8 g/dL (6.4-8.2)
[2016-10-02 23:34] LABS: INR 1.1 (0.8-1.1); PROTHROMBIN TIME PATIENT 13.1 SEC (11.7-14.0)
[2016-10-03] VITALS (7 sets, daily range): BP systolic 81–115; BP diastolic 40–67
[2016-10-03] MEDS ORDERED: ASPIRIN ENTERIC COATED 325 MG TABLET.DR. PO ONE
[2016-10-03 00:07] LABS: BILIRUBIN,URINE NEGATIVE (NEG); GLUCOSE,URINE NEGATIVE (NEG); NITRITE,URINE NEGATIVE (NEG); PROTEIN,URINE NEGATIVE (NEG-TRACE)
[2016-10-03 00:14] LABS: BACTERIA,URINE 0 /HPF (0-FEW); RBC,URINE OCC /HPF (0-2); SQUAMOUS EPITHELIAL CELL,UR OCC /LPF; WBC,URINE OCC /HPF (0-4)
[2016-10-03] MEDS ORDERED: DABI150C PO (01:02)
[2016-10-03] MEDS ORDERED: METO2.5T PO (01:02)
[2016-10-03 05:59] LABS: BASO # 0.1 x10^3/uL (0.0-0.2); BASO % 1 % (0-3); EOS % 2 % (0-3); HEMATOCRIT 26.8 % (39.0-53.0); HEMOGLOBIN 8.8 g/dL (13.0-17.5); LYMPH % 21 % (24-48); MEAN CORPUSCULAR HEMOGLOBIN 26 pg (25-35); MEAN CORPUSCULAR HGB CONC 33 g/dL (31-37); MEAN CORPUSCULAR VOLUME 80 fL (79-100); MONO % 10 % (0-9); NEUT % 66 % (31-73); PLATELET COUNT 412 x10^3/uL (140-400); RED BLOOD COUNT 3.38 x10^6/uL (4.30-5.70); RED CELL DISTRIBUTION WIDTH 17.4 % (11.5-14.5); WHITE BLOOD COUNT 9.7 x10^3/uL (4.0-11.0)
[2016-10-03 06:09] LABS: CALCIUM 7.9 mg/dL (8.5-10.1); CREATININE 1.2 mg/dL (0.7-1.3); GFR 59.5; POTASSIUM 4.2 mmol/L (3.5-5.1)
[2016-10-03] MEDS ORDERED: DEXTROSE 50% 25 GM / 50ML DISP.SYRIN. IV PRN (07:15)
--- NOTE | 2016-10-03 07:23 | EKG ---
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[id number] Requested By: RACHELE DELGADO Order Number: [id number] Reading MD: Clarke Daily Measurements Intervals Seguin Rate: 175 P: 78 NM: 80 QRS: -26 QRSD: 80 T: -103 QT: 254 QTc: 438 Interpretive Statements SINUS TACHYCARDIA LEFTWARD AXIS CONSIDER LEFT VENTRICULAR HYPERTROPHY ST & T ABNORMALITY, CONSIDER LATERAL ISCHEMIA OR LEFT VENTRICULAR STRAIN INFERIOR ISCHEMIA OR LEFT VENTRICULAR STRAIN ABNORMAL ECG RI6.01 Compared to ECG 09/26/2016 10:39:15 T-wave abnormality now present Possible ischemia now present Sinus rhythm no longer present The ST abnormalities may be rate related Electronically Signed On 10-04-2016 16:46:57 CDT by Clarke Daily
--- NOTE | 2016-10-03 07:37 | RAD ---
Portable upright single view chest radiograph 10/02/2016 Clinical indication: Chest pain. Comparison: 09/28/2016 chest radiograph. Findings: There is hypoinflation of both lungs with mild basilar atelectasis. Cardiac and mediastinal silhouettes are within normal limits. No pleural effusion, pneumothorax or focal consolidation. Impression: Hypoinflation of both lungs with mild bibasilar atelectasis.
--- NOTE | 2016-10-03 07:59 | PDOC1 ---
EFRA CARRASQUILLO DIGITAL MEDIA SPECIALIST 10/03/16 0759: HISTORY AND PHYSICAL Chief Complaint Chief Complaint This 70 year old male has been admitted with a chief complaint of chest pain and rapid heart rate. He is a poor historian so the HPI is taken from the chart. He was discharged from this facility on Friday after treatment for GIB and acute blood loss anemia. Per the ED record he was sent to the ED with c/o chest pain with rapid HR. Upon arrival his HR was noted to be narrow complex tachycardia at rate 175. The EKG was remarkable for ST and no acute changes. CXR unremarkable. His WBC was elevated at 11.1 and he did have low grade temp of 99.7F. One dose of Rocephin IV was administered. His initial troponin was 0.185 and the second troponin 2.662. Initial Mg 1.6 with no replacement. This morning he denies chest pain, shortness of breath, rapid HR but does acknowledge he was nauseous. He is admitted to the CVC and cardiology has been consulted.. Problem List Problems Medical Problems: (1) Chest pain Status: Acute (2) Elevated troponin Status: Acute (3) Sepsis Status: Acute (4) SVT (supraventricular tachycardia) Status: Acute Past Medical History Cardiovascular: AFIB (Pradaxa ), CAD (ASA 325mg ), CHF (diastolic EF 50-55% ), HTN, Hyperlipidemia, Other (PVD ) Pulmonary: COPD CENTRAL NERVOUS SYSTEM: CVA (old CVAS with contracture RH R elbow; bilateral foot drop, expressive aphasia and dysphagia on [facility] soft diet/thin liquids ) GI: Constipation, Diverticulosis (h/o large intestine ), GERD (w/o esophagitis ), GI bleed (h/o GIB June 2016 with PRC and IV iron infusion; August 2016 with PRC infusion ), Gastritis (non erosive June 2016 EGD ), Hemorrhoids (internal ) , Other (dysphagia post CVA with [facility] soft/thin liquids diet ) Psych: Anxiety (BI ), Depression (major depression single episode ) Musculoskeletal: Other Renal/: Chronic renal insuff (CKD III ), Urinary Incontinence Endocrine: Diabetes (Type II ), Hypothyroidism Past Surgical History [facility] EGD June 2016 non erosive gastritis Past Surgical History: Appendectomy, Tonsillectomy Past Family History PFH non contributory Family History: No Significant Past Social History [facility] resides at [facility] h/o tobacco, no ETOH or illicit drug use. Review of Symptoms Review of Symptoms A 14 point ROS was completed with the following noted as positive: per HPI Other systems reviewed and negative. Medications Medications reviewed and reconciled. Allergy Allergies Coded Allergies Type Severity Reaction Last Updated Verified Penicillins Allergy Intermediate Rash 06/25/16 Yes Physical Exam Physical Exam General appearance - alert, chronically ill appearing, and in no distress Mental Status - alert, oriented to person, place, and time, affect appropriate to mood Head - normal Chest - clear to auscultation, no wheezes, rales or rhonchi, symmetric air entry Heart - S1 and S2 normal Abdomen - soft, nontender, nondistended, no masses or organomegaly Neurological - no acute focal neurological deficits noted. Old Rhemiparesis, RH contracture and R elbow contracture, foot drop bilat and expressive aphasia . Musculoskeletal - no muscular tenderness noted Extremities - no pedal edema Skin - warm and dry VTE Prophylaxis Ordered VTE Prophylaxis Devices: Yes VTE Pharmacological Prophylaxi: No Assessment Labs Laboratory Tests Test 10/02/16 23:00 10/02/16 23:02 10/02/16 23:03 10/02/16 23:45 White Blood Count 11.1 x10^3/uL (4.0-11.0) Red Blood Count 3.96 x10^6/uL (4.30-5.70) Hemoglobin 10.1 g/dL (13.0-17.5) Hematocrit 31.6 % (39.0-53.0) Mean Corpuscular Volume 80 fL (79-100) Mean Corpuscular Hemoglobin 26 pg (25-35) Mean Corpuscular Hemoglobin Concent 32 g/dL (31-37) Red Cell Distribution Width 17.0 % (11.5-14.5) Platelet Count 483 x10^3/uL (140-400) Neutrophils (%) (Auto) 72 % (31-73) Lymphocytes (%) (Auto) 16 % (24-48) Monocytes (%) (Auto) 9 % (0-9) Eosinophils (%) (Auto) 3 % (0-3) Basophils (%) (Auto) 1 % (0-3) Neutrophils # (Auto) 8.0 x10^3uL (1.8-7.7) Lymphocytes # (Auto) 1.7 x10^3/uL (1.0-4.8) Monocytes # (Auto) 1.0 x10^3/uL (0.0-1.1) Eosinophils # (Auto) 0.3 x10^3/uL (0.0-0.7) Basophils # (Auto) 0.1 x10^3/uL (0.0-0.2) Prothrombin Time 13.1 SEC (11.7-14.0) Prothromb Time International Ratio 1.1 (0.8-1.1) Activated Partial Thromboplast Time 28 SEC (24-38) Sodium Level 138 mmol/L (136-145) Potassium Level 4.3 mmol/L (3.5-5.1) Chloride Level 103 mmol/L (98-107) Carbon Dioxide Level 22 mmol/L (21-32) Anion Gap 13 (6-14) 15 mmol/L (6-14) Blood Urea Nitrogen 17 mg/dL (8-26) Creatinine 1.3 mg/dL (0.7-1.3) Estimated GFR (Cockcroft-Gault) 54.3 BUN/Creatinine Ratio 13 (6-20) Glucose Level 140 mg/dL (70-99) 138 mg/dL (70-99) Lactic Acid Level 1.2 mmol/L (0.4-2.0) Calcium Level 8.4 mg/dL (8.5-10.1) Magnesium Level 1.6 mg/dL (1.8-2.4) Total Bilirubin 0.2 mg/dL (0.2-1.0) Aspartate Amino Transf (AST/SGOT) 25 U/L (15-37) Alanine Aminotransferase (ALT/SGPT) 24 U/L (16-63) Alkaline Phosphatase 105 U/L (46-116) Creatine Kinase 74 U/L (39-308) Troponin I Quantitative 0.185 ng/mL (0.000-0.055) JT-Twx-B-Type Natriuretic Peptide 339 pg/mL (0-124) Total Protein 6.8 g/dL (6.4-8.2) Albumin 2.1 g/dL (3.4-5.0) Albumin/Globulin Ratio 0.4 (1.0-1.7) Lipase 296 U/L (73-393) Thyroid Stimulating Hormone (TSH) 2.144 uIU/mL (0.358-3.74) Bedside Troponin I 0.15 ng/ml (<0.08) Bedside Hemoglobin 10.9 g/dL (14-18) Bedside Hematocrit 32 % (37-52) Bedside Sodium 137 mmol/L (135-145) Bedside Potassium 4.1 mmol/L (3.5-5.0) Bedside Chloride 105 mmol/L (98-110) Bedside Total CO2 22 mmol/L (23-32) Bedside Blood Urea Nitrogen 16 mg/dL (8-26) Bedside Creatinine 1.2 mg/dL (0.5-1.4) Bedside Ionized Calcium (Eduardo) 1.11 mmol/L (1.13-1.32) Urine Collection Type U cath Urine Color Yellow Urine Clarity Clear Urine pH 6.0 Urine Specific Casey 1.015 Urine Protein Negative mg/dL (NEG-TRACE) Urine Glucose (UA) Negative mg/dL (NEG) Urine Ketones (Stick) Negative mg/dL (NEG) Urine Blood Negative (NEG) Urine Nitrite Negative (NEG) Urine Bilirubin Negative (NEG) Urine Urobilinogen Dipstick 1.0 mg/dL (0.2 mg/dL) Urine Leukocyte Esterase Negative (NEG) Urine RBC Occ /HPF (0-2) Urine WBC Occ /HPF (0-4) Urine Squamous Epithelial Cells Occ /LPF Urine Amorphous Sediment Present /HPF Urine Bacteria 0 /HPF (0-FEW) Urine Hyaline Casts Few /HPF Urine Mucus Mod /LPF Test 10/03/16 05:34 10/03/16 07:39 White Blood Count 9.7 x10^3/uL (4.0-11.0) Red Blood Count 3.38 x10^6/uL (4.30-5.70) Hemoglobin 8.8 g/dL (13.0-17.5) Hematocrit 26.8 % (39.0-53.0) Mean Corpuscular Volume 80 fL (79-100) Mean Corpuscular Hemoglobin 26 pg (25-35) Mean Corpuscular Hemoglobin Concent 33 g/dL (31-37) Red Cell Distribution Width 17.4 % (11.5-14.5) Platelet Count 412 x10^3/uL (140-400) Neutrophils (%) (Auto) 66 % (31-73) Lymphocytes (%) (Auto) 21 % (24-48) Monocytes (%) (Auto) 10 % (0-9) Eosinophils (%) (Auto) 2 % (0-3) Basophils (%) (Auto) 1 % (0-3) Neutrophils # (Auto) 6.5 x10^3uL (1.8-7.7) Lymphocytes # (Auto) 2.0 x10^3/uL (1.0-4.8) Monocytes # (Auto) 0.9 x10^3/uL (0.0-1.1) Eosinophils # (Auto) 0.2 x10^3/uL (0.0-0.7) Basophils # (Auto) 0.1 x10^3/uL (0.0-0.2) Sodium Level 140 mmol/L (136-145) Potassium Level 4.2 mmol/L (3.5-5.1) Chloride Level 107 mmol/L (98-107) Carbon Dioxide Level 24 mmol/L (21-32) Anion Gap 9 (6-14) Blood Urea Nitrogen 16 mg/dL (8-26) Creatinine 1.2 mg/dL (0.7-1.3) Estimated GFR (Cockcroft-Gault) 59.5 Glucose Level 105 mg/dL (70-99) Calcium Level 7.9 mg/dL (8.5-10.1) Troponin I Quantitative 2.662 ng/mL (0.000-0.055) Glucose (Fingerstick) 95 mg/dL (70-99) Laboratory Tests Test 10/02/16 23:00 10/02/16 23:02 10/02/16 23:03 10/02/16 23:45 White Blood Count 11.1 x10^3/uL (4.0-11.0) Red Blood Count 3.96 x10^6/uL (4.30-5.70) Hemoglobin 10.1 g/dL (13.0-17.5) Hematocrit 31.6 % (39.0-53.0) Mean Corpuscular Volume 80 fL (79-100) Mean Corpuscular Hemoglobin 26 pg (25-35) Mean Corpuscular Hemoglobin Concent 32 g/dL (31-37) Red Cell Distribution Width 17.0 % (11.5-14.5) Platelet Count 483 x10^3/uL (140-400) Neutrophils (%) (Auto) 72 % (31-73) Lymphocytes (%) (Auto) 16 % (24-48) Monocytes (%) (Auto) 9 % (0-9) Eosinophils (%) (Auto) 3 % (0-3) Basophils (%) (Auto) 1 % (0-3) Neutrophils # (Auto) 8.0 x10^3uL (1.8-7.7) Lymphocytes # (Auto) 1.7 x10^3/uL (1.0-4.8) Monocytes # (Auto) 1.0 x10^3/uL (0.0-1.1) Eosinophils # (Auto) 0.3 x10^3/uL (0.0-0.7) Basophils # (Auto) 0.1 x10^3/uL (0.0-0.2) Prothrombin Time 13.1 SEC (11.7-14.0) Prothromb Time International Ratio 1.1 (0.8-1.1) Activated Partial Thromboplast Time 28 SEC (24-38) Sodium Level 138 mmol/L (136-145) Potassium Level 4.3 mmol/L (3.5-5.1) Chloride Level 103 mmol/L (98-107) Carbon Dioxide Level 22 mmol/L (21-32) Anion Gap 13 (6-14) 15 mmol/L (6-14) Blood Urea Nitrogen 17 mg/dL (8-26) Creatinine 1.3 mg/dL (0.7-1.3) Estimated GFR (Cockcroft-Gault) 54.3 BUN/Creatinine Ratio 13 (6-20) Glucose Level 140 mg/dL (70-99) 138 mg/dL (70-99) Lactic Acid Level 1.2 mmol/L (0.4-2.0) Calcium Level 8.4 mg/dL (8.5-10.1) Magnesium Level 1.6 mg/dL (1.8-2.4) Total Bilirubin 0.2 mg/dL (0.2-1.0) Aspartate Amino Transf (AST/SGOT) 25 U/L (15-37) Alanine Aminotransferase (ALT/SGPT) 24 U/L (16-63) Alkaline Phosphatase 105 U/L (46-116) Creatine Kinase 74 U/L (39-308) Troponin I Quantitative 0.185 ng/mL (0.000-0.055) TX-Hal-D-Type Natriuretic Peptide 339 pg/mL (0-124) Total Protein 6.8 g/dL (6.4-8.2) Albumin 2.1 g/dL (3.4-5.0) Albumin/Globulin Ratio 0.4 (1.0-1.7) Lipase 296 U/L (73-393) Thyroid Stimulating Hormone (TSH) 2.144 uIU/mL (0.358-3.74) Bedside Troponin I 0.15 ng/ml (<0.08) Bedside Hemoglobin 10.9 g/dL (14-18) Bedside Hematocrit 32 % (37-52) Bedside Sodium 137 mmol/L (135-145) Bedside Potassium 4.1 mmol/L (3.5-5.0) Bedside Chloride 105 mmol/L (98-110) Bedside Total CO2 22 mmol/L (23-32) Bedside Blood Urea Nitrogen 16 mg/dL (8-26) Bedside Creatinine 1.2 mg/dL (0.5-1.4) Bedside Ionized Calcium (Eduardo) 1.11 mmol/L (1.13-1.32) Urine Collection Type U cath Urine Color Yellow Urine Clarity Clear Urine pH 6.0 Urine Specific Casey 1.015 Urine Protein Negative mg/dL (NEG-TRACE) Urine Glucose (UA) Negative mg/dL (NEG) Urine Ketones (Stick) Negative mg/dL (NEG) Urine Blood Negative (NEG) Urine Nitrite Negative (NEG) Urine Bilirubin Negative (NEG) Urine Urobilinogen Dipstick 1.0 mg/dL (0.2 mg/dL) Urine Leukocyte Esterase Negative (NEG) Urine RBC Occ /HPF (0-2) Urine WBC Occ /HPF (0-4) Urine Squamous Epithelial Cells Occ /LPF Urine Amorphous Sediment Present /HPF Urine Bacteria 0 /HPF (0-FEW) Urine Hyaline Casts Few /HPF Urine Mucus Mod /LPF Test 10/03/16 05:34 10/03/16 07:39 White Blood Count 9.7 x10^3/uL (4.0-11.0) Red Blood Count 3.38 x10^6/uL (4.30-5.70) Hemoglobin 8.8 g/dL (13.0-17.5) Hematocrit 26.8 % (39.0-53.0) Mean Corpuscular Volume 80 fL (79-100) Mean Corpuscular Hemoglobin 26 pg (25-35) Mean Corpuscular Hemoglobin Concent 33 g/dL (31-37) Red Cell Distribution Width 17.4 % (11.5-14.5) Platelet Count 412 x10^3/uL (140-400) Neutrophils (%) (Auto) 66 % (31-73) Lymphocytes (%) (Auto) 21 % (24-48) Monocytes (%) (Auto) 10 % (0-9) Eosinophils (%) (Auto) 2 % (0-3) Basophils (%) (Auto) 1 % (0-3) Neutrophils # (Auto) 6.5 x10^3uL (1.8-7.7) Lymphocytes # (Auto) 2.0 x10^3/uL (1.0-4.8) Monocytes # (Auto) 0.9 x10^3/uL (0.0-1.1) Eosinophils # (Auto) 0.2 x10^3/uL (0.0-0.7) Basophils # (Auto) 0.1 x10^3/uL (0.0-0.2) Sodium Level 140 mmol/L (136-145) Potassium Level 4.2 mmol/L (3.5-5.1) Chloride Level 107 mmol/L (98-107) Carbon Dioxide Level 24 mmol/L (21-32) Anion Gap 9 (6-14) Blood Urea Nitrogen 16 mg/dL (8-26) Creatinine 1.2 mg/dL (0.7-1.3) Estimated GFR (Cockcroft-Gault) 59.5 Glucose Level 105 mg/dL (70-99) Calcium Level 7.9 mg/dL (8.5-10.1) Troponin I Quantitative 2.662 ng/mL (0.000-0.055) Glucose (Fingerstick) 95 mg/dL (70-99) Plan Plan 1. chest pain with h/o CAD chronic ASA 325mg restarted 10/01 2. leukocytosis low grade fever 3. AF Pradaxa restarted 10/01 4. CHF diastolic with normal EF 5. DM II with PVD chronic insulin 6. Recent GIB with rectal bleeding likely diverticular bleed August 2016 7. HTN 8. h/o GIB June 2016 and August 2016 requiring PRC 9. non erosive gastritis 10. COPD 11. 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 diverticulosis large colon 14. internal hemorrhoids 15. BI 16. depression 17. Vitamin D def 18. h/o PE 19. moderate chronic PCL malnutrition 20. hypertensive with diabetes CKD III PLAN: chest pain/abnormal troponin cardiology consult ASA 325mg ED Chronic ASA 325mg daily SVT h/o AF off Pradaxa due to recent GIB adenosine in ED Mg 1.6 TSH normal last admit leukocytosis low grade temp UA negative Rocephin IV x 1 BC pending CXR essentially negative DM II FSBS/SSI resume home meds CHF Zaroxlyn 2.5mg every other day-currently on hold along with K replacement. daily wt IO Anemia FE deficiency/with h/o GIB Admit Hgb 10.1 10/03 8.8 bleed scan last admit negative monitor CKD III/hypomagnesia Admit BUN 17 10/03 16 Cr 1.3 1.2 K 4.3 4.2 Mg 1.6 Mg not treated, recheck and replacement orders placed DVT/GI prophylaxis SCD/GALINA PPI For more details regarding further plans, please refer to the orders. MERVAT MORE MD 10/03/16 0942: HISTORY AND PHYSICAL Plan Plan The patient was seen and examined by me. Chart reviewed and plan of care formulated. Discussed with, reviewed and agree with [employer] ESTATE UTILIZATION OFFICER's notes, plan of care and orders with modifications as necessary. For more details regarding further plans, please refer to the orders. D/w cardiology- start Digoxin,low dose Metoprolol if tolerated. The patient was seen and examined by me. Chart reviewed and plan of care formulated. Discussed with, reviewed and agree with [employer] ESTATE UTILIZATION OFFICER's notes, plan of care and orders with modifications as necessary. For more details regarding further plans, please refer to the orders. EFRA CARRASQUILLO APRN Oct 03, 2016 07:59 MERVAT MORE MD Oct 03, 2016 09:42
[2016-10-03] MEDS: INSULIN ASPART 300 UNITS/3 ML INSULN.PEN SQ SCH ×3 (08:00→17:00)
[2016-10-03] MEDS ORDERED: ALBUTEROL SULFATE 2.5 MG/3 ML NEBU. NEB PRN ×2 (08:30→09:15)
[2016-10-03] MEDS ORDERED: ONDANSETRON ODT 4 MG TAB.RAPDIS. PO PRN (08:30)
[2016-10-03] MEDS ORDERED: MAGNESIUM SULFATE 4GM 100 ML IV PRN (08:30)
[2016-10-03] MEDS ORDERED: MAGNESIUM SULFATE 2GM 50 ML IV PRN (08:30)
[2016-10-03] MEDS ORDERED: diphenhydrAMINE HCL 25 MG CAPSULE PO PRN (08:30)
[2016-10-03] MEDS ORDERED: SODIUM PHOSPHATES 19/7GM 133 ML ENEMA. RC PRN (08:30)
[2016-10-03] MEDS ORDERED: ONDANSETRON PF 4 MG/2 ML VIAL. IV PRN (08:30)
[2016-10-03] MEDS ORDERED: ACETAMINOPHEN 650 MG/20.3 ML SOLUTION. PO PRN (08:30)
[2016-10-03] MEDS ORDERED: NITROGLYCERIN SUBLINGUAL 0.4 MG BOTTLE OF 25. SL PRN (08:30)
[2016-10-03] MEDS ORDERED: POLYETHYLENE GLYCOL 3350 17 GM PACKET. PO PRN (08:30)
[2016-10-03] MEDS ORDERED: ASPIRIN ENTERIC COATED 325 MG TABLET.DR. PO SCH (09:00)
[2016-10-03] MEDS ORDERED: METOPROLOL TART IMMED RELEASE 25 MG TABLET. PO PRN (09:15)
[2016-10-03 09:25] LABS: CALCIUM 7.5 mg/dL (8.5-10.1); CREATININE 1.2 mg/dL (0.7-1.3); GFR 59.5; MAGNESIUM 1.6 mg/dL (1.8-2.4); POTASSIUM 4.1 mmol/L (3.5-5.1)
--- NOTE | 2016-10-03 09:27 | PDOC2 ---
VINICIO CHANEL LAMBSKIN TRIMMER 10/03/16 0926: CARDIAC CONSULT DATE OF CONSULT Date of Consult DATE: 10/03/16 TIME: 09:00 REASON FOR CONSULT Reason for Consult: CP, SVT REFERRING PHYSICIAN Referring Physician: This is a pleasant 70 yo male admitted for complains of heart racing. This has been going on intermittently in the last 2 days. Yesterday it lasted for about 2 hours. Upon admission he was noted with SVT narrow complex and regular which I dont see any copy of it. He was treated with x1 adenosine which he responded right away and no further episodes overnight. [facility] [place] [facility] [place] he did develop SOA, chest pressure, LA discomfort and slight nausea no vomiting. Per chart review he denies any CAD and no LHC. His last MPI was 5 yrs ago. He has RA, debilitated and contracted. Presently he is having expiratory wheeze but denies any SOA while supine and no other symptoms. SOURCE Source: Chart review, Patient PAST MEDICAL HISTORY Past Medical History Cardiovascular: AFIB ([place] ), CAD (? 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; bilateral foot drop, expressive [facility] and [facility] ), Other GI: Constipation, Diverticulosis (h/o large intestine ), GERD (w/o esophagitis ), GI bleed (h/o GI Bleed june 2016 with PRC and IV iron infusion ), Gastritis (non erosive June 2016 EGD ), Hemorrhoids (internal ) Psych: Anxiety (generalized anxiety disorder), Depression (major depression single episode) Musculoskeletal: OA, RA, contractures Renal/: Chronic renal insuff (CKD III ), Urinary Incontinence Endocrine: Diabetes, Hypothyroidism PAST SURGICAL HISTORY Past Surgical History EGD june 2016 non erosive gastritis, Appendectomy, Tonsillectomy FAMILY HISTORY Family History: Coronary Artery Disease (mother) SOCIAL HISTORY Smoke: No ALCOHOL: none Drugs: None Lives: Longterm CURRENT MEDICATIONS CURRENT MEDICATIONS Current Medications Medications (Trade) Dose Ordered Sig/Vivienne Route PRN Reason Start Time Stop Time Status Last Admin Dose Admin Sodium Chloride 1,000 ml @ 1,000 mls/hr 1X ONCE IV 10/02/16 23:30 10/03/16 00:29 DC 10/02/16 23:19 Adenosine (Adenocard) 12 mg 1X ONCE IV 10/02/16 23:30 10/02/16 23:31 DC 10/02/16 23:25 Ceftriaxone Sodium 50 ml @ 100 mls/hr 1X ONCE IV 10/03/16 00:00 10/03/16 00:29 DC 10/03/16 00:06 Aspirin (Ecotrin) 325 mg 1X ONCE PO 10/03/16 00:00 10/03/16 00:01 DC 10/03/16 00:06 ALLERGIES ALLERGIES: Coded Allergies: Penicillins (Verified Allergy, Intermediate, Rash, 06/25/16) ROS Review of System 14 point ROS evaluated with pertinent positives noted per HPI PHYSICAL EXAM General: Alert, Oriented X3, Cooperative, No acute distress HEENT: Atraumatic, Mucous membr. moist/pink Lungs: Other (diffuse expiratory wheeze) Heart: Regular rate (SR), Normal S1, Normal S2, Other (2/6 systolic murmur to LLS border) Abdomen: Soft, No tenderness Extremities: No cyanosis, Other (1+ bilateral LE pitting edema) Skin: No breakdown, No significant lesion Neuro: Normal speech, Sensation intact Psych/Mental Status: Mental status NL, Mood NL MUSCULOSKELETAL: Osteoarthritic changes both hands, Other (multiple contractures) VITALS VITALS Vital Signs Date Time Temp Pulse Resp B/P (MAP) Pulse Ox O2 Delivery O2 Flow Rate FiO2 10/03/16 07:33 82 18 94/53 (67) 99 Nasal Cannula 3.0 10/03/16 03:49 98.8 98.8 LABS Lab: Laboratory Tests Test 10/02/16 23:00 10/02/16 23:02 10/02/16 23:03 10/02/16 23:45 White Blood Count 11.1 x10^3/uL (4.0-11.0) Red Blood Count 3.96 x10^6/uL (4.30-5.70) Hemoglobin 10.1 g/dL (13.0-17.5) Hematocrit 31.6 % (39.0-53.0) Mean Corpuscular Volume 80 fL (79-100) Mean Corpuscular Hemoglobin 26 pg (25-35) Mean Corpuscular Hemoglobin Concent 32 g/dL (31-37) Red Cell Distribution Width 17.0 % (11.5-14.5) Platelet Count 483 x10^3/uL (140-400) Neutrophils (%) (Auto) 72 % (31-73) Lymphocytes (%) (Auto) 16 % (24-48) Monocytes (%) (Auto) 9 % (0-9) Eosinophils (%) (Auto) 3 % (0-3) Basophils (%) (Auto) 1 % (0-3) Neutrophils # (Auto) 8.0 x10^3uL (1.8-7.7) Lymphocytes # (Auto) 1.7 x10^3/uL (1.0-4.8) Monocytes # (Auto) 1.0 x10^3/uL (0.0-1.1) Eosinophils # (Auto) 0.3 x10^3/uL (0.0-0.7) Basophils # (Auto) 0.1 x10^3/uL (0.0-0.2) Prothrombin Time 13.1 SEC (11.7-14.0) Prothromb Time International Ratio 1.1 (0.8-1.1) Activated Partial Thromboplast Time 28 SEC (24-38) Sodium Level 138 mmol/L (136-145) Potassium Level 4.3 mmol/L (3.5-5.1) Chloride Level 103 mmol/L (98-107) Carbon Dioxide Level 22 mmol/L (21-32) Anion Gap 13 (6-14) 15 mmol/L (6-14) Blood Urea Nitrogen 17 mg/dL (8-26) Creatinine 1.3 mg/dL (0.7-1.3) Estimated GFR (Cockcroft-Gault) 54.3 BUN/Creatinine Ratio 13 (6-20) Glucose Level 140 mg/dL (70-99) 138 mg/dL (70-99) Lactic Acid Level 1.2 mmol/L (0.4-2.0) Calcium Level 8.4 mg/dL (8.5-10.1) Magnesium Level 1.6 mg/dL (1.8-2.4) Total Bilirubin 0.2 mg/dL (0.2-1.0) Aspartate Amino Transf (AST/SGOT) 25 U/L (15-37) Alanine Aminotransferase (ALT/SGPT) 24 U/L (16-63) Alkaline Phosphatase 105 U/L (46-116) Creatine Kinase 74 U/L (39-308) Troponin I Quantitative 0.185 ng/mL (0.000-0.055) NW-Bpj-T-Type Natriuretic Peptide 339 pg/mL (0-124) Total Protein 6.8 g/dL (6.4-8.2) Albumin 2.1 g/dL (3.4-5.0) Albumin/Globulin Ratio 0.4 (1.0-1.7) Lipase 296 U/L (73-393) Thyroid Stimulating Hormone (TSH) 2.144 uIU/mL (0.358-3.74) Bedside Troponin I 0.15 ng/ml (<0.08) Bedside Hemoglobin 10.9 g/dL (14-18) Bedside Hematocrit 32 % (37-52) Bedside Sodium 137 mmol/L (135-145) Bedside Potassium 4.1 mmol/L (3.5-5.0) Bedside Chloride 105 mmol/L (98-110) Bedside Total CO2 22 mmol/L (23-32) Bedside Blood Urea Nitrogen 16 mg/dL (8-26) Bedside Creatinine 1.2 mg/dL (0.5-1.4) Bedside Ionized Calcium (Eduardo) 1.11 mmol/L (1.13-1.32) Urine Collection Type U cath Urine Color Yellow Urine Clarity Clear Urine pH 6.0 Urine Specific [place] 1.015 Urine Protein Negative mg/dL (NEG-TRACE) Urine Glucose (UA) Negative mg/dL (NEG) Urine Ketones (Stick) Negative mg/dL (NEG) Urine Blood Negative (NEG) Urine Nitrite Negative (NEG) Urine Bilirubin Negative (NEG) Urine Urobilinogen Dipstick 1.0 mg/dL (0.2 mg/dL) Urine Leukocyte Esterase Negative (NEG) Urine RBC Occ /HPF (0-2) Urine WBC Occ /HPF (0-4) Urine Squamous Epithelial Cells Occ /LPF Urine Amorphous Sediment Present /HPF Urine Bacteria 0 /HPF (0-FEW) Urine Hyaline Casts Few /HPF Urine Mucus Mod /LPF Test 10/03/16 05:34 10/03/16 07:39 White Blood Count 9.7 x10^3/uL (4.0-11.0) Red Blood Count 3.38 x10^6/uL (4.30-5.70) Hemoglobin 8.8 g/dL (13.0-17.5) Hematocrit 26.8 % (39.0-53.0) Mean Corpuscular Volume 80 fL (79-100) Mean Corpuscular Hemoglobin 26 pg (25-35) Mean Corpuscular Hemoglobin Concent 33 g/dL (31-37) Red Cell Distribution Width 17.4 % (11.5-14.5) Platelet Count 412 x10^3/uL (140-400) Neutrophils (%) (Auto) 66 % (31-73) Lymphocytes (%) (Auto) 21 % (24-48) Monocytes (%) (Auto) 10 % (0-9) Eosinophils (%) (Auto) 2 % (0-3) Basophils (%) (Auto) 1 % (0-3) Neutrophils # (Auto) 6.5 x10^3uL (1.8-7.7) Lymphocytes # (Auto) 2.0 x10^3/uL (1.0-4.8) Monocytes # (Auto) 0.9 x10^3/uL (0.0-1.1) Eosinophils # (Auto) 0.2 x10^3/uL (0.0-0.7) Basophils # (Auto) 0.1 x10^3/uL (0.0-0.2) Sodium Level 140 mmol/L (136-145) Potassium Level 4.2 mmol/L (3.5-5.1) Chloride Level 107 mmol/L (98-107) Carbon Dioxide Level 24 mmol/L (21-32) Anion Gap 9 (6-14) Blood Urea Nitrogen 16 mg/dL (8-26) Creatinine 1.2 mg/dL (0.7-1.3) Estimated GFR (Cockcroft-Gault) 59.5 Glucose Level 105 mg/dL (70-99) Calcium Level 7.9 mg/dL (8.5-10.1) Troponin I Quantitative 2.662 ng/mL (0.000-0.055) Glucose (Fingerstick) 95 mg/dL (70-99) ASSESSMENT/PLAN ASSESSMENT/PLAN 1. Palpitations: Followed by CP and SOA. None further overnight. Due to SVT terminated with adenosine. No further recurrence. Could be triggered by fever and bronchospasm 2. Elevated troponin: 2.6. likely induced by above and underlying possible infectious process. EKG no acute changes so far by comparison. 3. Fever/leukocytosis/atelectasis 4. Hx of PAFIB 5. OA/RA/debility/multiple contractures/WC bound 6. CVA/right side hemiparesis 7. Chronic diastolic CHF: compensated 8. Asthma: diffuse wheeze. Per PCP 9. Recent significant anemia requiring transfusion 10. Hypothyroidism: TSH on goal 11. Hx of low BP Recommendations 1. TTE, preliminary EF at 55%. 2. Repeat EKG. BMP, Mg 3. Will defer NOAC to PCP. 4. No noted AV vic blocking agents to nsg home regimen. Start Dig po. Metoprolol PRN per parameter with his hx of hypotension. 5. Given his debility and significant comorbid conditions, would recommend conservative measures. Problems: CHAU PEREZ MD 10/03/16 1700: CARDIAC CONSULT ALLERGIES ALLERGIES: Coded Allergies: Penicillins (Verified Allergy, Intermediate, Rash, 06/25/16) ASSESSMENT/PLAN ASSESSMENT/PLAN Patient seen and examined. Agree with above nurse practitioner note. 70-year-old male presenting with atrial for ablation with a rapid ventricular response and troponin elevation. He is quite debilitated and wheelchair bound. He's had a prior stroke. Currently denies any chest pain. Enzymes are downtrending. Our team discussed with the primary care physician and we will pursue conservative management given his multiple comorbidities. EF is within normal limits. Supportive care. Problems: VINICIO CHANEL APRN Oct 03, 2016 09:26 CHAU PEREZ MD Oct 03, 2016 17:00
--- NOTE | 2016-10-03 10:09 | EKG ---
[facility] [address] [place] [address] Test Date: 2016-10-03 Test Time: 09:59:28 Pat Name: ELIANA HARDIN Department: Room: 254 1 Gender: M Craft Superintendent: TRACEY : 1945 Requested By: VINICIO CHANEL Order Number: [id number] Reading MD: Clarke Daily Measurements Intervals [place] Rate: 79 P: 42 MT: 166 QRS: -10 QRSD: 78 T: 14 QT: 398 QTc: 457 Interpretive Statements SINUS RHYTHM VENTRICULAR PREMATURE COMPLEX(ES) LEFTWARD AXIS ABNORMAL ECG RI6.01 Compared to ECG 09/26/2016 10:39:15 No significant changes Electronically Signed On 10-03-2016 15:59:37 CDT by Clarke Daily
--- NOTE | 2016-10-03 10:41 | EKG ---
[address] [place] [address] Test Date: 2016-10-02 Test Time: 23:24:33 Pat Name: ELIANA HARDIN Department: Room: 254 1 Gender: M Insurance Follow Up Representative: : 1945 Requested By: MERVAT MORE Order Number: [id number] Reading MD: Clarke Daily Measurements Intervals [place] Rate: 100 P: 15 AR: 154 QRS: -15 QRSD: 76 T: 39 QT: 332 QTc: 431 Interpretive Statements SINUS RHYTHM LEFTWARD AXIS NON SPECIFIC ECG ABNORMALITIES RI6.01 Compared to ECG 09/26/2016 10:39:15 No significant changes Electronically Signed On 10-03-2016 15:55:10 CDT by Clarke Daily
[2016-10-03] MEDS: MULTIVITAMIN with MINERAL TABLET. PO SCH (10:47)
[2016-10-03] MEDS: LEVOTHYROXINE 50 MCG TABLET PO SCH (10:47)
[2016-10-03] MEDS: DABIGATRAN ETEXILATE 150 MG CAPSULE. PO SCH ×2 (10:47→21:39)
[2016-10-03] MEDS: OMEGA-3 FATTY ACIDS/FISH OIL 1,000 MG CAPSULE. PO SCH ×2 (10:47→21:44)
[2016-10-03] MEDS: MAGNESIUM OXIDE 400 MG TABLET PO SCH ×2 (10:48→21:45)
[2016-10-03] MEDS: SENNOSIDES 8.6 MG TABLET PO SCH ×2 (10:48→21:39)
[2016-10-03] MEDS: CHOLECALCIFEROL (VITAMIN D3) 5,000 UNIT CAPSULE PO SCH (10:48)
[2016-10-03] MEDS: SPIRONOLACTONE 25 MG TABLET PO SCH ×2 (10:48→21:45)
[2016-10-03] MEDS: FERROUS SULFATE 325 MG TABLET. PO SCH (10:48)
[2016-10-03] MEDS: buPROPion 100 MG TABLET PO SCH (10:48)
[2016-10-03] MEDS: VITAMIN B COMPLEX TABLET. PO SCH (10:48)
[2016-10-03] MEDS: DIVALPROEX SPRINKLES 125 MG CAPSULE. PO SCH ×2 (10:50→21:44)
[2016-10-03] MEDS: DIGOXIN 125 MCG TABLET. PO SCH (10:50)
[2016-10-03] MEDS: NYSTATIN TOPICAL POWDER 15GM BOTTLE. TP SCH ×2 (10:56→21:55)
[2016-10-03] MEDS: PANTOPRAZOLE 40 MG TABLET.DR. PO SCH (10:59)
[2016-10-03] MEDS: METOCLOPRAMIDE 5 MG TABLET. PO SCH ×2 (10:59→21:45)
--- NOTE | 2016-10-03 11:34 | CARD ---
APPROVED REPORT EXAM: Two-dimensional and M-mode echocardiogram with Doppler and color Doppler. Other Information Quality : FairHR: 84bpm Rhythm : NSR INDICATION Arrhythmia, Elevated troponin 2D DIMENSIONS RVDd2.9 (2.9-3.5cm)Left Atrium(2D)3.6 (1.6-4.0cm) IVSd1.0 (0.7-1.1cm)Aortic Root(2D)3.5 (2.0-3.7cm) LVDd5.0 (3.9-5.9cm)LVOT Diameter2.3 (1.8-2.4cm) PWd1.0 (0.7-1.1cm)LVDs3.5 (2.5-4.0cm) FS (%) 30.9 %SV70.2 ml LVEF(%)58.3 (>50%) Aortic Valve AoV Peak Dion.131.5cm/sAoV VTI24.4cm AO Peak GR.6.9mmHgLVOT Peak Dion.99.6cm/s AO Mean GR.4mmHgAVA (VMAX)3.26cm2 Mitral Valve MV E Fbvocutd54.9cm/sMV E Peak Gr.3mmHg MV DECEL [id number] A Iwbarljm26.8cm/s MV E Mean Gr.1mmHgE/A Ratio0.8 MV A [id number] Pulmonary Valve PV Peak Tyicwgcl153.4cm/s Pulmonary Vein S1 Xswsdfps76.7cm/sD2 Jbhneclm89.0cm/s PVa [id number] LEFT VENTRICLE The left ventricle is normal size. There is normal left ventricular wall thickness. The left ventricu lar systolic function is normal and the ejection fraction is within normal range. The Ejection Fracti on is 55-60%. There is normal LV segmental wall motion. Transmitral Doppler flow pattern is Grade I-a bnormal relaxation pattern. RIGHT VENTRICLE The right ventricle is normal size. There is normal right ventricular wall thickness. The right ventr icular systolic function is normal. ATRIA The left atrium is not well visualized but appears normal in size. The righ atrium is not well visual ized but appears normal in size. The interatrial septum is intact with no evidence for an atrial sept al defect or patent foramen ovale as noted on 2-D or Doppler imaging. AORTIC VALVE The aortic valve is not well visualized but appears mildly calcified and opens well. Doppler and [place] r Flow revealed no significant aortic regurgitation. There is no significant aortic valvular stenosis . MITRAL VALVE The mitral valve is not well visualized but appears to opens well. There is no mitral valve stenosis. Doppler and Color Flow revealed no mitral valve regurgitation noted. TRICUSPID VALVE The tricuspid valve is not well visualized but appears to opens well. Doppler and Color Flow revealed no tricuspid valve regurgitation noted. Unable to determine pulmonary artery pressure at exam time. PULMONIC VALVE The pulmonic valve is not visualized. There is no pulmonic valvular regurgitation or stenosis by spec tral Doppler. GREAT VESSELS The aortic root is normal in size. The ascending aorta is not visualized. The pulmonary artery is not visualized. The IVC was obscured, unable to assess. PERICARDIAL EFFUSION There is no evidence of significant pericardial effusion. Critical Notification Critical Value: No <Conclusion> The left ventricular systolic function is normal and the ejection fraction is within normal range. T he Ejection Fraction is 55-60%. There is grossly normal LV segmental wall motion.
[2016-10-03] MEDS: IPRATRPIUM/ALBUTEROL 0.5/2.5MG 3 ML NEBU. IH SCH (11:38)
[2016-10-03] MEDS ORDERED: MAGNESIUM SULFATE 2GM 50 ML IV ONE (13:00)
[2016-10-03] MEDS: MIRTAZAPINE 15 MG TAB.RAPDIS PO SCH (21:43)
[2016-10-03] MEDS: CETIRIZINE HCL 10 MG TABLET. PO SCH (21:44)
[2016-10-03] MEDS: ATORVASTATIN CALCIUM 40 MG TABLET. PO SCH (21:45)
[2016-10-03] MEDS: MONTELUKAST SODIUM 10 MG TABLET. PO SCH (21:45)
[2016-10-03] MEDS: INSULIN DETEMIR 300 UNITS/3 ML INSULN.PEN. SQ SCH (21:49)
[2016-10-04 03:00] VITALS: BP 93/56
[2016-10-04 05:50] LABS: BASO # 0.1 x10^3/uL (0.0-0.2); BASO % 1 % (0-3); EOS % 3 % (0-3); HEMATOCRIT 27.6 % (39.0-53.0); HEMOGLOBIN 9.1 g/dL (13.0-17.5); LYMPH # 1.9 x10^3/uL (1.0-4.8); LYMPH % 19 % (24-48); MEAN CORPUSCULAR HEMOGLOBIN 27 pg (25-35); MEAN CORPUSCULAR HGB CONC 33 g/dL (31-37); MEAN CORPUSCULAR VOLUME 80 fL (79-100); MONO % 10 % (0-9); NEUT % 67 % (31-73); PLATELET COUNT 457 x10^3/uL (140-400); RED BLOOD COUNT 3.45 x10^6/uL (4.30-5.70); RED CELL DISTRIBUTION WIDTH 17.2 % (11.5-14.5); WHITE BLOOD COUNT 9.7 x10^3/uL (4.0-11.0)
[2016-10-04 05:56] LABS: CALCIUM 7.9 mg/dL (8.5-10.1); CREATININE 1.2 mg/dL (0.7-1.3); GFR 59.5
[2016-10-04 07:10] VITALS: BP 100/57
[2016-10-04] MEDS: IPRATRPIUM/ALBUTEROL 0.5/2.5MG 3 ML NEBU. IH SCH ×5 (07:20→19:32)
[2016-10-04] MEDS: INSULIN ASPART 300 UNITS/3 ML INSULN.PEN SQ SCH ×3 (08:00→17:00)
[2016-10-04] MEDS ORDERED: DEXTROSE ORAL GEL 15 GM TUBE. PO PRN (08:15)
[2016-10-04] MEDS ORDERED: VANCOMYCIN 1.25 GM in IV NORMAL SALINE 250ML 250 ML IV ONE (08:15)
--- NOTE | 2016-10-04 08:15 | PDOC ---
EFRA CARRASQUILLO METAL FABRICATING INSPECTOR 10/04/16 0815: IM PROGRESS NOTES- Subjective Subjective no chest pain or palpitations through night Objective Objective alert no distress Vitals Vital Signs Date Time Temp Pulse Resp B/P (MAP) Pulse Ox O2 Delivery O2 Flow Rate FiO2 10/04/16 07:20 99 Nasal Cannula 2.5 10/04/16 07:10 98.7 74 18 100/57 (71) 98.7 Input & Output Intake and Output 10/04/16 07:00 Intake Total 1655 ml Balance 1655 ml Intake Oral 350 ml IV Total 1305 ml # Voids 6 Physical Exam Physical Exam General appearance - alert, chronically ill appearing, and in no distress Mental Status - alert, oriented to person, place, and time, affect appropriate to mood Head - normal Chest - clear to auscultation, no wheezes, rales or rhonchi, symmetric air entry Heart - S1 and S2 normal Abdomen - soft, nontender, nondistended, no masses or organomegaly Neurological - no acute focal neurological deficits noted. 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 Musculoskeletal - no muscular tenderness noted Extremities - no pedal edema Skin - warm and dry Labs Laboratory Tests Test 10/02/16 23:00 10/02/16 23:02 10/02/16 23:03 10/02/16 23:45 White Blood Count 11.1 x10^3/uL (4.0-11.0) Red Blood Count 3.96 x10^6/uL (4.30-5.70) Hemoglobin 10.1 g/dL (13.0-17.5) Hematocrit 31.6 % (39.0-53.0) Mean Corpuscular Volume 80 fL (79-100) Mean Corpuscular Hemoglobin 26 pg (25-35) Mean Corpuscular Hemoglobin Concent 32 g/dL (31-37) Red Cell Distribution Width 17.0 % (11.5-14.5) Platelet Count 483 x10^3/uL (140-400) Neutrophils (%) (Auto) 72 % (31-73) Lymphocytes (%) (Auto) 16 % (24-48) Monocytes (%) (Auto) 9 % (0-9) Eosinophils (%) (Auto) 3 % (0-3) Basophils (%) (Auto) 1 % (0-3) Neutrophils # (Auto) 8.0 x10^3uL (1.8-7.7) Lymphocytes # (Auto) 1.7 x10^3/uL (1.0-4.8) Monocytes # (Auto) 1.0 x10^3/uL (0.0-1.1) Eosinophils # (Auto) 0.3 x10^3/uL (0.0-0.7) Basophils # (Auto) 0.1 x10^3/uL (0.0-0.2) Prothrombin Time 13.1 SEC (11.7-14.0) Prothromb Time International Ratio 1.1 (0.8-1.1) Activated Partial Thromboplast Time 28 SEC (24-38) Sodium Level 138 mmol/L (136-145) Potassium Level 4.3 mmol/L (3.5-5.1) Chloride Level 103 mmol/L (98-107) Carbon Dioxide Level 22 mmol/L (21-32) Anion Gap 13 (6-14) 15 mmol/L (6-14) Blood Urea Nitrogen 17 mg/dL (8-26) Creatinine 1.3 mg/dL (0.7-1.3) Estimated GFR (Cockcroft-Gault) 54.3 BUN/Creatinine Ratio 13 (6-20) Glucose Level 140 mg/dL (70-99) 138 mg/dL (70-99) Lactic Acid Level 1.2 mmol/L (0.4-2.0) Calcium Level 8.4 mg/dL (8.5-10.1) Magnesium Level 1.6 mg/dL (1.8-2.4) Total Bilirubin 0.2 mg/dL (0.2-1.0) Aspartate Amino Transf (AST/SGOT) 25 U/L (15-37) Alanine Aminotransferase (ALT/SGPT) 24 U/L (16-63) Alkaline Phosphatase 105 U/L (46-116) Creatine Kinase 74 U/L (39-308) Troponin I Quantitative 0.185 ng/mL (0.000-0.055) MV-Owz-N-Type Natriuretic Peptide 339 pg/mL (0-124) Total Protein 6.8 g/dL (6.4-8.2) Albumin 2.1 g/dL (3.4-5.0) Albumin/Globulin Ratio 0.4 (1.0-1.7) Lipase 296 U/L (73-393) Thyroid Stimulating Hormone (TSH) 2.144 uIU/mL (0.358-3.74) Bedside Troponin I 0.15 ng/ml (<0.08) Bedside Hemoglobin 10.9 g/dL (14-18) Bedside Hematocrit 32 % (37-52) Bedside Sodium 137 mmol/L (135-145) Bedside Potassium 4.1 mmol/L (3.5-5.0) Bedside Chloride 105 mmol/L (98-110) Bedside Total CO2 22 mmol/L (23-32) Bedside Blood Urea Nitrogen 16 mg/dL (8-26) Bedside Creatinine 1.2 mg/dL (0.5-1.4) Bedside Ionized Calcium (Eduardo) 1.11 mmol/L (1.13-1.32) Urine Collection Type U cath Urine Color Yellow Urine Clarity Clear Urine pH 6.0 Urine Specific [place] 1.015 Urine Protein Negative mg/dL (NEG-TRACE) Urine Glucose (UA) Negative mg/dL (NEG) Urine Ketones (Stick) Negative mg/dL (NEG) Urine Blood Negative (NEG) Urine Nitrite Negative (NEG) Urine Bilirubin Negative (NEG) Urine Urobilinogen Dipstick 1.0 mg/dL (0.2 mg/dL) Urine Leukocyte Esterase Negative (NEG) Urine RBC Occ /HPF (0-2) Urine WBC Occ /HPF (0-4) Urine Squamous Epithelial Cells Occ /LPF Urine Amorphous Sediment Present /HPF Urine Bacteria 0 /HPF (0-FEW) Urine Hyaline Casts Few /HPF Urine Mucus Mod /LPF Test 10/03/16 05:34 10/03/16 06:20 10/03/16 07:39 10/03/16 11:03 White Blood Count 9.7 x10^3/uL (4.0-11.0) Red Blood Count 3.38 x10^6/uL (4.30-5.70) Hemoglobin 8.8 g/dL (13.0-17.5) Hematocrit 26.8 % (39.0-53.0) Mean Corpuscular Volume 80 fL (79-100) Mean Corpuscular Hemoglobin 26 pg (25-35) Mean Corpuscular Hemoglobin Concent 33 g/dL (31-37) Red Cell Distribution Width 17.4 % (11.5-14.5) Platelet Count 412 x10^3/uL (140-400) Neutrophils (%) (Auto) 66 % (31-73) Lymphocytes (%) (Auto) 21 % (24-48) Monocytes (%) (Auto) 10 % (0-9) Eosinophils (%) (Auto) 2 % (0-3) Basophils (%) (Auto) 1 % (0-3) Neutrophils # (Auto) 6.5 x10^3uL (1.8-7.7) Lymphocytes # (Auto) 2.0 x10^3/uL (1.0-4.8) Monocytes # (Auto) 0.9 x10^3/uL (0.0-1.1) Eosinophils # (Auto) 0.2 x10^3/uL (0.0-0.7) Basophils # (Auto) 0.1 x10^3/uL (0.0-0.2) Sodium Level 139 mmol/L (136-145) Potassium Level 4.1 mmol/L (3.5-5.1) Chloride Level 109 mmol/L (98-107) Carbon Dioxide Level 25 mmol/L (21-32) Anion Gap 5 (6-14) Blood Urea Nitrogen 16 mg/dL (8-26) Creatinine 1.2 mg/dL (0.7-1.3) Estimated GFR (Cockcroft-Gault) 59.5 Glucose Level 104 mg/dL (70-99) Calcium Level 7.5 mg/dL (8.5-10.1) Magnesium Level 1.6 mg/dL (1.8-2.4) Troponin I Quantitative 2.662 ng/mL (0.000-0.055) Nasal Screen MRSA (PCR) Negative (Negative) Glucose (Fingerstick) 95 mg/dL (70-99) 87 mg/dL (70-99) Test 10/03/16 11:35 10/03/16 16:49 10/03/16 21:09 10/04/16 05:00 Troponin I Quantitative 1.731 ng/mL (0.000-0.055) Glucose (Fingerstick) 98 mg/dL (70-99) 136 mg/dL (70-99) White Blood Count 9.7 x10^3/uL (4.0-11.0) Red Blood Count 3.45 x10^6/uL (4.30-5.70) Hemoglobin 9.1 g/dL (13.0-17.5) Hematocrit 27.6 % (39.0-53.0) Mean Corpuscular Volume 80 fL (79-100) Mean Corpuscular Hemoglobin 27 pg (25-35) Mean Corpuscular Hemoglobin Concent 33 g/dL (31-37) Red Cell Distribution Width 17.2 % (11.5-14.5) Platelet Count 457 x10^3/uL (140-400) Neutrophils (%) (Auto) 67 % (31-73) Lymphocytes (%) (Auto) 19 % (24-48) Monocytes (%) (Auto) 10 % (0-9) Eosinophils (%) (Auto) 3 % (0-3) Basophils (%) (Auto) 1 % (0-3) Neutrophils # (Auto) 6.5 x10^3uL (1.8-7.7) Lymphocytes # (Auto) 1.9 x10^3/uL (1.0-4.8) Monocytes # (Auto) 1.0 x10^3/uL (0.0-1.1) Eosinophils # (Auto) 0.3 x10^3/uL (0.0-0.7) Basophils # (Auto) 0.1 x10^3/uL (0.0-0.2) Sodium Level 141 mmol/L (136-145) Potassium Level 4.0 mmol/L (3.5-5.1) Chloride Level 108 mmol/L (98-107) Carbon Dioxide Level 27 mmol/L (21-32) Anion Gap 6 (6-14) Blood Urea Nitrogen 16 mg/dL (8-26) Creatinine 1.2 mg/dL (0.7-1.3) Estimated GFR (Cockcroft-Gault) 59.5 Glucose Level 89 mg/dL (70-99) Calcium Level 7.9 mg/dL (8.5-10.1) Magnesium Level 2.0 mg/dL (1.8-2.4) Laboratory Tests Test 10/03/16 11:03 10/03/16 11:35 10/03/16 16:49 10/03/16 21:09 Glucose (Fingerstick) 87 mg/dL (70-99) 98 mg/dL (70-99) 136 mg/dL (70-99) Troponin I Quantitative 1.731 ng/mL (0.000-0.055) Test 10/04/16 05:00 White Blood Count 9.7 x10^3/uL (4.0-11.0) Red Blood Count 3.45 x10^6/uL (4.30-5.70) Hemoglobin 9.1 g/dL (13.0-17.5) Hematocrit 27.6 % (39.0-53.0) Mean Corpuscular Volume 80 fL (79-100) Mean Corpuscular Hemoglobin 27 pg (25-35) Mean Corpuscular Hemoglobin Concent 33 g/dL (31-37) Red Cell Distribution Width 17.2 % (11.5-14.5) Platelet Count 457 x10^3/uL (140-400) Neutrophils (%) (Auto) 67 % (31-73) Lymphocytes (%) (Auto) 19 % (24-48) Monocytes (%) (Auto) 10 % (0-9) Eosinophils (%) (Auto) 3 % (0-3) Basophils (%) (Auto) 1 % (0-3) Neutrophils # (Auto) 6.5 x10^3uL (1.8-7.7) Lymphocytes # (Auto) 1.9 x10^3/uL (1.0-4.8) Monocytes # (Auto) 1.0 x10^3/uL (0.0-1.1) Eosinophils # (Auto) 0.3 x10^3/uL (0.0-0.7) Basophils # (Auto) 0.1 x10^3/uL (0.0-0.2) Sodium Level 141 mmol/L (136-145) Potassium Level 4.0 mmol/L (3.5-5.1) Chloride Level 108 mmol/L (98-107) Carbon Dioxide Level 27 mmol/L (21-32) Anion Gap 6 (6-14) Blood Urea Nitrogen 16 mg/dL (8-26) Creatinine 1.2 mg/dL (0.7-1.3) Estimated GFR (Cockcroft-Gault) 59.5 Glucose Level 89 mg/dL (70-99) Calcium Level 7.9 mg/dL (8.5-10.1) Magnesium Level 2.0 mg/dL (1.8-2.4) Meds Current Medications Acetaminophen (Tylenol) 650 mg PRN Q6HRS PRN PO MILD PAIN / TEMP; Start at 08:30 Albuterol Sulfate (Ventolin Neb Soln) 3 mg PRN QID PRN NEB SHORTNESS OF BREATH ; Start 10/03/16 at 09:15 Albuterol Sulfate (Ventolin Neb Soln) 3 mg QID PRN NEB SHORTNESS OF BREATH; Start 10/03/16 at 08:30; Stop 10/03/16 at 09:05; Status DC Albuterol/ Ipratropium (Duoneb) 3 ml BID IH Last administered on 10/04/16 07:20 ; Start 10/03/16 at 09:00 Aspirin (Ecotrin) 81 mg DAILYWBKFT PO ; Start 10/04/16 at 08:00 Aspirin (Ecotrin) 325 mg DAILY PO ; Start 10/03/16 at 09:00; Stop 10/03/16 at 09: 27; Status DC Atorvastatin Calcium (Lipitor) 40 mg QHS PO Last administered on 10/03/16 21:45 ; Start 10/03/16 at 21:00 Bupropion HCl (Wellbutrin) 200 mg DAILY PO Last administered on 10/03/16 10:48 ; Start 10/03/16 at 09:00 Cetirizine HCl (ZyrTEC) 5 mg HS PO Last administered on 10/03/16 21:44; Start 10/03/16 at 21:00 Dabigatran (Pradaxa) 150 mg BID PO Last administered on 10/03/16 21:39; Start 10/03/16 at 09:00 Digoxin (Lanoxin) 125 mcg DAILY PO Last administered on 10/03/16 10:50; Start 10/03/16 at 09:00 Diphenhydramine HCl (Benadryl) 25 mg PRN Q8HRS PRN PO IT; Start 10/03/16 at 08: 30 Divalproex Sodium (Depakote Sprinkles) 125 mg DAILY PO Last administered on 10/03 10:50; Start 10/03/16 at 09:00 Divalproex Sodium (Depakote Sprinkles) 250 mg HS PO Last administered on 21:44; Start 10/03/16 at 21:00 Ferrous Sulfate (Feosol) 325 mg DAILYWBKFT PO Last administered on 10/03/16 10: 48; Start 10/03/16 at 09:00 Fish Oil (Fish Oil) 1,000 mg BID PO Last administered on 10/03/16 21:44; Start 10/03/16 at 09:00 Info (Anti-Coagulation Monitoring By Pharmacy) 1 each PRN DAILY PRN MC SEE COMMENTS; Start 10/03/16 at 09:30 Insulin Aspart (NovoLOG) 0-5 UNITS TIDWMEALS SQ ; Start 10/03/16 at 08:00 Insulin Detemir (Levemir) 10 units QHS SQ Last administered on 10/03/16 21:49; Start 10/03/16 at 21:00 Levothyroxine Sodium (Synthroid) 50 mcg DAILYAC PO Last administered on 10:47; Start 10/03/16 at 10:30 Magnesium Oxide (Magnesium Oxide) 400 mg BID PO Last administered on 10/03/16 21:45; Start 10/03/16 at 09:00 Magnesium Sulfate/ Dextrose 50 ml @ 25 mls/hr 1X ONCE IV Last administered on 10/03/16 13:00; Start 10/03/16 at 13:00; Stop 10/03/16 at 14:59; Status DC Magnesium Sulfate/ Dextrose 50 ml @ 25 mls/hr PRN 1X PRN IV SEE COMMENTS; Start 10/03/16 at 08:30 Magnesium Sulfate/ Dextrose 100 ml @ 25 mls/hr PRN 1X PRN IV SEE COMMENTS; Start 10/03/16 at 08:30 Metoclopramide HCl (Reglan) 5 mg BID PO Last administered on 10/03/16 21:45; Start 10/03/16 at 09:00 Metoprolol Tartrate (Lopressor) 12.5 mg PRN Q12HR PRN PO SEE COMMENTS; Start at 09:15 Mirtazapine (Remeron Adwoa-Tab) 7.5 mg HS PO Last administered on 10/03/16 21:43 ; Start 10/03/16 at 21:00 Montelukast Sodium (Singulair) 10 mg HS PO Last administered on 10/03/16 21:45 ; Start 10/03/16 at 21:00 Multivitamins (Thera M Plus) 1 tab DAILY PO Last administered on 10/03/16 10:47 ; Start 10/03/16 at 09:00 Nitroglycerin (Nitrostat) 0.4 mg PRN Q5MIN PRN SL CHEST PAIN; Start 10/03/16 at 08:30 Nystatin (Nystop) 1 chaparrita BID TP Last administered on 10/03/16 21:55; Start at 09:00 Ondansetron HCl (Zofran Odt) 4 mg PRN Q6HRS PRN PO NAUSEA/VOMITING; Start at 08:30 Ondansetron HCl (Zofran) 4 mg PRN Q8HRS PRN IV NAUSEA/VOMITING; Start 10/03/16 at 08:30 Pantoprazole Sodium (Protonix) 40 mg DAILYAC PO Last administered on 10/03/16 10:59; Start 10/03/16 at 11:30 Polyethylene Glycol (miraLAX PACKET) 17 gm PRN DAILY PRN PO CONSTIPATION; Start 10/03/16 at 08:30 Sennosides (Senna) 17.2 mg BID PO Last administered on 10/03/16 21:39; Start at 09:00 Sodium Monofluorophosphate (Fleet Adult) 133 ml PRN DAILY PRN RC cons; Start at 08:30 Spironolactone (Aldactone) 25 mg BID PO Last administered on 10/03/16 21:45; Start 10/03/16 at 09:00 Vitamin B Complex (Turner B) 1 tab DAILY PO Last administered on 10/03/16 10:48; Start 10/03/16 at 09:00 Vitamin D (Vitamin D3) 5,000 unit DAILY PO Last administered on 10/03/16 10:48 ; Start 10/03/16 at 09:00 Assessment Assessment 1. chest pain with h/o CAD chronic ASA 325mg restarted 10/01 2. leukocytosis low grade fever 3. AF Pradaxa restarted 10/01 4. CHF diastolic with normal EF 5. DM II with PVD chronic insulin 6. Recent GIB with rectal bleeding likely diverticular bleed August 2016 7. HTN 8. h/o GIB June 2016 and August 2016 requiring PRC 9. non erosive gastritis 10. COPD 11. 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 diverticulosis large colon 14. internal hemorrhoids 15. BI 16. depression 17. Vitamin D def 18. h/o PE 19. moderate chronic PCL malnutrition 20. hypertensive with diabetes CKD III PLAN: chest pain/abnormal troponin cardiology consult ASA 325mg ED Chronic ASA 325mg daily -decreased to 81mg daily SVT h/o AF off Pradaxa due to recent GIB adenosine in ED Mg 1.6 TSH normal last admit Dig 125mcg started 10/03/16 Metoprolol tart 12.5mg bid -will add parameter to hold if SBP <110 or HR <55 leukocytosis low grade temp UA negative Rocephin IV x 1 BC pending CXR essentially negative BC + anaerobic gram neg deepak x1 btl, aerobic grm + coccia pairs in chains x1 bottle consult ID - Vanco 1.25mg IV x 1 Invanz IV daily DM II FSBS/SSI resume home meds BS 87-136 CHF Zaroxlyn 2.5mg every other day-currently on hold along with K replacement. daily wt IO Admit wt 186.19 10/04 184.13 ECHO 10/03 EF 55-60% Anemia FE deficiency/with h/o GIB Admit Hgb 10.1 10/04 9.1 bleed scan last admit negative monitor CKD III/hypomagnesia Admit BUN 17 10/04 16 Cr 1.3 1.2 K 4.3 4.2 Mg 1.6 2.0 Mg not treated, recheck and replacement orders placed-orders stopped 10/04 DVT/GI prophylaxis SCD/GALINA PPI For more details regarding further plans, please refer to the orders Plan Plan For more details regarding further plans, please refer to the orders. MERVAT MORE MD 10/04/16 0900: PROGRESS NOTES- Assessment Assessment The patient was seen and examined by me. Chart reviewed and plan of care formulated. Discussed with, reviewed and agree with GARBAGE TRUCK DISPATCHER's notes, plan of care and orders with modifications as necessary. For more details regarding further plans, please refer to the orders. EFRA CARRASQUILLO APRN Oct 04, 2016 08:15 MERVAT MORE MD Oct 04, 2016 09:00
[2016-10-04] MEDS: SPIRONOLACTONE 25 MG TABLET PO SCH ×2 (09:00→21:45)
[2016-10-04] MEDS ORDERED: ERTAPENEM 0.5 GM in IV NORMAL SALINE 50ML 50 ML IV SCH (09:00)
[2016-10-04] MEDS: ANTI-COAG MONITOR BY PHARMACY. MC PRN (09:17)
[2016-10-04] MEDS: IV NORMAL SALINE 1000ML BAG 1,000 ML IV SCH ×2 (09:28→21:35)
[2016-10-04] MEDS: SENNOSIDES 8.6 MG TABLET PO SCH ×2 (09:29→21:44)
[2016-10-04] MEDS: OMEGA-3 FATTY ACIDS/FISH OIL 1,000 MG CAPSULE. PO SCH ×2 (09:29→21:45)
[2016-10-04] MEDS: ASPIRIN ENTERIC COATED 81 MG TABLET.DR. PO SCH (09:29)
[2016-10-04] MEDS: MAGNESIUM OXIDE 400 MG TABLET PO SCH ×2 (09:29→22:02)
[2016-10-04] MEDS: buPROPion 100 MG TABLET PO SCH (09:29)
[2016-10-04] MEDS: CHOLECALCIFEROL (VITAMIN D3) 5,000 UNIT CAPSULE PO SCH (09:29)
[2016-10-04] MEDS: METOCLOPRAMIDE 5 MG TABLET. PO SCH ×2 (09:30→21:44)
[2016-10-04] MEDS: FERROUS SULFATE 325 MG TABLET. PO SCH (09:30)
[2016-10-04] MEDS: LEVOTHYROXINE 50 MCG TABLET PO SCH (09:30)
[2016-10-04] MEDS: DABIGATRAN ETEXILATE 150 MG CAPSULE. PO SCH ×2 (09:30→21:44)
[2016-10-04] MEDS: DIGOXIN 125 MCG TABLET. PO SCH (09:30)
[2016-10-04] MEDS: PANTOPRAZOLE 40 MG TABLET.DR. PO SCH (09:31)
[2016-10-04] MEDS: VITAMIN B COMPLEX TABLET. PO SCH (09:31)
[2016-10-04] MEDS: DIVALPROEX SPRINKLES 125 MG CAPSULE. PO SCH ×2 (09:31→21:44)
[2016-10-04] MEDS: MULTIVITAMIN with MINERAL TABLET. PO SCH (09:31)
[2016-10-04 10:23] VITALS: BP 97/57
--- NOTE | 2016-10-04 11:01 | PDOC ---
CARDIO Progress Notes Date and Time Date of Service 10/04/2016 Time of Evaluation 1050 Subjective Subjective: No Chest Pain, No shortness of breath, No Palpitations Vitals Vitals Vital Signs Date Time Temp Pulse Resp B/P (MAP) Pulse Ox O2 Delivery O2 Flow Rate FiO2 10/04/16 10:23 98.3 81 19 97/57 (70) 98.3 10/04/16 07:20 99 Nasal Cannula 2.5 Weight Weight [ ] Input and Output Intake and Output Intake and Output 10/04/16 07:00 Intake Total 1655 ml Balance 1655 ml Intake Oral 350 ml IV Total 1305 ml # Voids 6 Laboratory Labs Laboratory Tests Test 10/03/16 11:03 10/03/16 11:35 10/03/16 16:49 10/03/16 21:09 Glucose (Fingerstick) 87 mg/dL (70-99) 98 mg/dL (70-99) 136 mg/dL (70-99) Troponin I Quantitative 1.731 ng/mL (0.000-0.055) Test 10/04/16 05:00 White Blood Count 9.7 x10^3/uL (4.0-11.0) Red Blood Count 3.45 x10^6/uL (4.30-5.70) Hemoglobin 9.1 g/dL (13.0-17.5) Hematocrit 27.6 % (39.0-53.0) Mean Corpuscular Volume 80 fL (79-100) Mean Corpuscular Hemoglobin 27 pg (25-35) Mean Corpuscular Hemoglobin Concent 33 g/dL (31-37) Red Cell Distribution Width 17.2 % (11.5-14.5) Platelet Count 457 x10^3/uL (140-400) Neutrophils (%) (Auto) 67 % (31-73) Lymphocytes (%) (Auto) 19 % (24-48) Monocytes (%) (Auto) 10 % (0-9) Eosinophils (%) (Auto) 3 % (0-3) Basophils (%) (Auto) 1 % (0-3) Neutrophils # (Auto) 6.5 x10^3uL (1.8-7.7) Lymphocytes # (Auto) 1.9 x10^3/uL (1.0-4.8) Monocytes # (Auto) 1.0 x10^3/uL (0.0-1.1) Eosinophils # (Auto) 0.3 x10^3/uL (0.0-0.7) Basophils # (Auto) 0.1 x10^3/uL (0.0-0.2) Sodium Level 141 mmol/L (136-145) Potassium Level 4.0 mmol/L (3.5-5.1) Chloride Level 108 mmol/L (98-107) Carbon Dioxide Level 27 mmol/L (21-32) Anion Gap 6 (6-14) Blood Urea Nitrogen 16 mg/dL (8-26) Creatinine 1.2 mg/dL (0.7-1.3) Estimated GFR (Cockcroft-Gault) 59.5 Glucose Level 89 mg/dL (70-99) Calcium Level 7.9 mg/dL (8.5-10.1) Magnesium Level 2.0 mg/dL (1.8-2.4) Microbiology Micro Microbiology 10/02/16 Blood Culture - Final, Complete Physical Exam HEENT: Neck Supple W Full Motion Chest: Symmetric LUNGS: Other (DIMINISHED BASES) Heart: S1S2, RRR (sr) Abdomen: Soft N/T Extremities: Other (Feet plantar flexed contracted; right hand contractures with right sided hemiparesis) Neurology: alert, follow commands Assessment Assessment 1. Palpitations with episode of SVT: associated with fever with possible bronchospasm. No further episodes. 2. Elevated troponin: Peaked at 2.6 and trending down. Likely due to above. EF and LV systolic function normal. 3. Fever/leukocytosis/atelectasis 4. Hx of PAFIB: remains in SR without significant ectopies 5. OA/RA/debility/multiple contractures/WC bound 6. CVA/right side hemiparesis 7. Chronic diastolic CHF: compensated 8. Hx of low BP Recommendations 1. Intolerant to antiHTN (overly sensitive per PCP). Continue on Dig. 2. Pradaxa in place managed by PCP. 3. No aggressive intervention with his significant debility and comorbid conditions. Continue with medical therapy. No further recommendations. Pls call if any questions. VINICIO CHANEL APRN Oct 04, 2016 11:01
--- NOTE | 2016-10-04 11:09 | PDOC ---
Infectious Disease Note Vital Sign Vital Signs Vital Signs Date Time Temp Pulse Resp B/P (MAP) Pulse Ox O2 Delivery O2 Flow Rate FiO2 10/04/16 10:23 98.3 81 19 97/57 (70) 98.3 10/04/16 07:20 99 Nasal Cannula 2.5 Labs Lab Laboratory Tests Test 10/03/16 11:35 10/03/16 16:49 10/03/16 21:09 10/04/16 05:00 Troponin I Quantitative 1.731 ng/mL (0.000-0.055) Glucose (Fingerstick) 98 mg/dL (70-99) 136 mg/dL (70-99) White Blood Count 9.7 x10^3/uL (4.0-11.0) Red Blood Count 3.45 x10^6/uL (4.30-5.70) Hemoglobin 9.1 g/dL (13.0-17.5) Hematocrit 27.6 % (39.0-53.0) Mean Corpuscular Volume 80 fL (79-100) Mean Corpuscular Hemoglobin 27 pg (25-35) Mean Corpuscular Hemoglobin Concent 33 g/dL (31-37) Red Cell Distribution Width 17.2 % (11.5-14.5) Platelet Count 457 x10^3/uL (140-400) Neutrophils (%) (Auto) 67 % (31-73) Lymphocytes (%) (Auto) 19 % (24-48) Monocytes (%) (Auto) 10 % (0-9) Eosinophils (%) (Auto) 3 % (0-3) Basophils (%) (Auto) 1 % (0-3) Neutrophils # (Auto) 6.5 x10^3uL (1.8-7.7) Lymphocytes # (Auto) 1.9 x10^3/uL (1.0-4.8) Monocytes # (Auto) 1.0 x10^3/uL (0.0-1.1) Eosinophils # (Auto) 0.3 x10^3/uL (0.0-0.7) Basophils # (Auto) 0.1 x10^3/uL (0.0-0.2) Sodium Level 141 mmol/L (136-145) Potassium Level 4.0 mmol/L (3.5-5.1) Chloride Level 108 mmol/L (98-107) Carbon Dioxide Level 27 mmol/L (21-32) Anion Gap 6 (6-14) Blood Urea Nitrogen 16 mg/dL (8-26) Creatinine 1.2 mg/dL (0.7-1.3) Estimated GFR (Cockcroft-Gault) 59.5 Glucose Level 89 mg/dL (70-99) Calcium Level 7.9 mg/dL (8.5-10.1) Magnesium Level 2.0 mg/dL (1.8-2.4) Objective Assessment G neg deepak and G + cocci bacteremia , source unclear CVA SVT Plan Plan of Care vanc and meropenem check cultures and adjust supportive care RAUL SIDDIQUI MD Oct 04, 2016 11:09
[2016-10-04] MEDS ORDERED: IOHEXOL 300 MG/ML 75 ML VIAL IV ONE (12:00)
[2016-10-04] MEDS ORDERED: CONTRAST GIVEN MC PRN (12:00)
[2016-10-04] MEDS ORDERED: IOHEXOL 240 MG/ML 50ML VIAL. PO ONE (12:00)
[2016-10-04] MEDS: NYSTATIN TOPICAL POWDER 15GM BOTTLE. TP SCH ×2 (12:16→21:45)
--- NOTE | 2016-10-04 13:37 | CONS ---
DATE OF CONSULTATION: 10/04/2016 REQUESTING PHYSICIAN: Dr. Tierney. REASON FOR CONSULTATION: Bacteremia. HISTORY OF PRESENT ILLNESS: This is a 70-year-old gentleman who is a long term resident with total care from prior CVA, who was brought in because of the rapid heart rate. The patient was found to be in SVT yesterday with rapid ventricular rate. The patient was treated by Cardiology. Heart rate had settled down. The patient did have fever and a slight leukocytosis. Blood culture done. It is now positive with gram-negative deepak and gram-positive cocci, hence consultation. The patient says he feels fine. Denies any nausea, vomiting, diarrhea, chest pain, shortness of breath. He does not know why he is here and I do not know how good his baseline after stroke, but he is able to appropriately answer and he says he has felt fine. The patient has not noted to have any significant fever here other than 99.8. Denies any nausea, vomiting, diarrhea, chest pain, shortness of breath. PAST MEDICAL HISTORY: Positive for CVA. The patient has a history of hypertension, atrial fibrillation, hyperlipidemia, congestive heart failure, COPD, renal insufficiency, history of GI bleed also contractures and diabetes. SOCIAL HISTORY: Negative for smoking, alcohol, illicit drug use. The patient is a long term resident with total care. ALLERGIES: The patient IS LISTED ALLERGIC TO PENICILLIN although he denied allergic to anything. CURRENT MEDICATIONS: Reviewed. The patient is receiving vancomycin and Invanz. REVIEW OF SYSTEMS: As per HPI, all other systems reviewed are negative. PHYSICAL EXAMINATION: GENERAL: Awake gentleman, not in distress. VITAL SIGNS: Stable, afebrile. HEENT: NAD. NECK: Supple, no JVP, no lymphadenopathy. LUNGS: Clear. HEART: S1, S2 regular. ABDOMEN: Benign. EXTREMITIES: The patient has a contracture of both upper extremity and lower extremity. The patient has contractures. There is minor blistering at the heel and gluteal area, but there is no significant skin breakdown or infection . LABORATORY DATA: White count is 9.7, it was 11.1 when he came in, BUN 17, creatinine 1.3. Urinalysis unremarkable. His blood culture is positive with gram-negative deepak as well as gram-positive cocci in pairs and chains. Chest x-ray is unremarkable other than hypoinflation. IMPRESSION: 1. Polymicrobial bacteremia, origin is unclear. 2. Cerebrovascular accident. 3. Supraventricular tachycardia with rapid ventricular rate. 4. Diabetes. 5. Hypertension. RECOMMENDATIONS: I would use vancomycin and meropenem. We will check cultures and adjust, supportive care. I may consider doing a CT chest, abdomen and pelvis. Thank you very much, Dr. Tierney, for giving me the opportunity to participate in this patient's care. RAUL SIDDIQUI MD DR: LAYTON/josephine JOB#: [id number] / [id number]
[2016-10-04 14:19] VITALS: BP 99/53
[2016-10-04] MEDS: MEROPENEM 500 MG in IV NORMAL SALINE 50ML 50 ML IV SCH ×2 (15:46→22:04)
--- NOTE | 2016-10-04 16:16 | RAD ---
CT abdomen and pelvis with contrast 10/04/2016 Clinical indication: Bacteremia. Comparison: CT abdomen and pelvis July 08, 2013. Technique: Multiple CT images of the abdomen and pelvis following uneventful intravenous administration of Omnipaque 300 iodinated contrast material. Coronal and sagittal reformations were obtained. PQRS Compliance Statement: One or more of the following individualized dose reduction techniques were utilized for this examination: 1. Automated exposure control 2. Adjustment of the mA and/or kV according to patient size 3. Use of iterative reconstruction technique Findings: Abdomen and pelvis: Heart size is normal with coronary artery calcifications. There is mild dependent atelectasis in the visualized lung bases. Liver, gallbladder, spleen, adrenal glands, and pancreas are within normal limits. There is mild cortical thinning of both kidneys that collecting system dilatation. Abdominal aorta is normal in caliber with moderate aortoiliac calcified atheromatous disease. There is a moderate stool ball in the rectum. Small and large bowel loops are normal in caliber without obstruction. No abdominal free fluid. No abdominal or pelvic lymphadenopathy or free fluid. Mildly distended and unopacified urinary bladder unremarkable. Prostate seminal vesicles are present. There is diffuse bony demineralization. Old coccyx fracture deformity. Impression: 1. No intra-abdominal abscess or ascites. 2. Moderate rectal stool ball without bowel obstruction. Disimpaction should be considered. 3. Coronary artery calcifications.
[2016-10-04 19:00] VITALS: BP 96/49
[2016-10-04] MEDS: MONTELUKAST SODIUM 10 MG TABLET. PO SCH (21:43)
[2016-10-04] MEDS: MIRTAZAPINE 15 MG TAB.RAPDIS PO SCH (21:43)
[2016-10-04] MEDS: CETIRIZINE HCL 10 MG TABLET. PO SCH (21:44)
[2016-10-04] MEDS: ATORVASTATIN CALCIUM 40 MG TABLET. PO SCH (21:44)
[2016-10-04] MEDS: INSULIN DETEMIR 300 UNITS/3 ML INSULN.PEN. SQ SCH (22:09)
[2016-10-04 23:00] VITALS: BP 100/50
[2016-10-05 03:00] VITALS: BP 105/56
[2016-10-05] MEDS: IV NORMAL SALINE 1000ML BAG 1,000 ML IV SCH (04:19)
[2016-10-05 05:30] LABS: BASO # 0.1 x10^3/uL (0.0-0.2); BASO % 1 % (0-3); EOS % 4 % (0-3); HEMATOCRIT 27.8 % (39.0-53.0); HEMOGLOBIN 9.2 g/dL (13.0-17.5); LYMPH # 1.7 x10^3/uL (1.0-4.8); LYMPH % 21 % (24-48); MEAN CORPUSCULAR HEMOGLOBIN 26 pg (25-35); MEAN CORPUSCULAR HGB CONC 33 g/dL (31-37); MEAN CORPUSCULAR VOLUME 79 fL (79-100); MONO % 11 % (0-9); NEUT % 64 % (31-73); PLATELET COUNT 464 x10^3/uL (140-400); RED BLOOD COUNT 3.51 x10^6/uL (4.30-5.70); RED CELL DISTRIBUTION WIDTH 17.5 % (11.5-14.5); WHITE BLOOD COUNT 8.2 x10^3/uL (4.0-11.0)
[2016-10-05 05:56] LABS: GFR 73.5; POTASSIUM 3.9 mmol/L (3.5-5.1)
[2016-10-05] MEDS: MEROPENEM 500 MG in IV NORMAL SALINE 50ML 50 ML IV SCH ×3 (06:29→22:48)
[2016-10-05 07:00] VITALS: BP 111/58
[2016-10-05] MEDS: INSULIN ASPART 300 UNITS/3 ML INSULN.PEN SQ SCH ×3 (08:00→17:00)
[2016-10-05] MEDS: IPRATRPIUM/ALBUTEROL 0.5/2.5MG 3 ML NEBU. IH SCH ×2 (09:24→20:29)
--- NOTE | 2016-10-05 09:27 | PDOC ---
Infectious Disease Note Subjective Subjective States ok. ROS ROS GEN: Denies fevers, chills, sweats HEENT: Denies blurred vision, sore throat CV: Denies chest pain RESP: Denies shortness of air, cough GI: Denies n/v/d NEURO: Denies confusion, dizziness MSK: Denies weakness, joint pain/swelling Vital Sign Vital Signs Vital Signs Date Time Temp Pulse Resp B/P (MAP) Pulse Ox O2 Delivery O2 Flow Rate FiO2 10/05/16 07:00 98.2 79 18 111/58 (75) 96 Nasal Cannula 98.2 10/05/16 03:00 2.0 Physical Exam PHYSICAL EXAM GENERAL: NAD, Alert HEENT: PERRL, OC/OP - clear NECK: Supple, no JVD, no LN LUNGS: Clear HEART: S1S2, no gallop, no murmur ABD: Soft, NT, no organomegaly, no rebound EXT: No edema, no cyanosis, contracted 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, 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 SKIN: No rash IV: ok Labs Lab Laboratory Tests Test 10/04/16 11:39 10/04/16 16:43 10/04/16 21:57 10/05/16 05:00 Glucose (Fingerstick) 110 mg/dL (70-99) 81 mg/dL (70-99) 104 mg/dL (70-99) White Blood Count 8.2 x10^3/uL (4.0-11.0) Red Blood Count 3.51 x10^6/uL (4.30-5.70) Hemoglobin 9.2 g/dL (13.0-17.5) Hematocrit 27.8 % (39.0-53.0) Mean Corpuscular Volume 79 fL (79-100) Mean Corpuscular Hemoglobin 26 pg (25-35) Mean Corpuscular Hemoglobin Concent 33 g/dL (31-37) Red Cell Distribution Width 17.5 % (11.5-14.5) Platelet Count 464 x10^3/uL (140-400) Neutrophils (%) (Auto) 64 % (31-73) Lymphocytes (%) (Auto) 21 % (24-48) Monocytes (%) (Auto) 11 % (0-9) Eosinophils (%) (Auto) 4 % (0-3) Basophils (%) (Auto) 1 % (0-3) Neutrophils # (Auto) 5.2 x10^3uL (1.8-7.7) Lymphocytes # (Auto) 1.7 x10^3/uL (1.0-4.8) Monocytes # (Auto) 0.9 x10^3/uL (0.0-1.1) Eosinophils # (Auto) 0.3 x10^3/uL (0.0-0.7) Basophils # (Auto) 0.1 x10^3/uL (0.0-0.2) Sodium Level 139 mmol/L (136-145) Potassium Level 3.9 mmol/L (3.5-5.1) Chloride Level 106 mmol/L (98-107) Carbon Dioxide Level 25 mmol/L (21-32) Anion Gap 8 (6-14) Blood Urea Nitrogen 13 mg/dL (8-26) Creatinine 1.0 mg/dL (0.7-1.3) Estimated GFR (Cockcroft-Gault) 73.5 Glucose Level 82 mg/dL (70-99) Calcium Level 8.0 mg/dL (8.5-10.1) Test 10/05/16 07:44 Glucose (Fingerstick) 75 mg/dL (70-99) Objective Assessment G neg deepak and G + cocci bacteremia (enterococcus) , source unclear ? stool ball. ? Contamination does not appear septic and cults are inconsistent CVA SVT Plan Plan of Care Cont vanc and meropenem for now supportive care JEFFREY GOODEN MD Oct 05, 2016 09:27
[2016-10-05] MEDS: buPROPion 100 MG TABLET PO SCH (09:54)
[2016-10-05] MEDS: DIVALPROEX SPRINKLES 125 MG CAPSULE. PO SCH ×2 (09:55→21:39)
[2016-10-05] MEDS: DABIGATRAN ETEXILATE 150 MG CAPSULE. PO SCH ×2 (09:57→21:37)
[2016-10-05] MEDS: MULTIVITAMIN with MINERAL TABLET. PO SCH (09:57)
[2016-10-05] MEDS: MAGNESIUM OXIDE 400 MG TABLET PO SCH ×2 (09:57→21:38)
[2016-10-05] MEDS: OMEGA-3 FATTY ACIDS/FISH OIL 1,000 MG CAPSULE. PO SCH ×2 (09:57→21:38)
[2016-10-05] MEDS: SPIRONOLACTONE 25 MG TABLET PO SCH ×2 (09:57→21:38)
[2016-10-05] MEDS: DIGOXIN 125 MCG TABLET. PO SCH (09:57)
[2016-10-05] MEDS: ASPIRIN ENTERIC COATED 81 MG TABLET.DR. PO SCH (09:58)
[2016-10-05] MEDS: METOCLOPRAMIDE 5 MG TABLET. PO SCH ×2 (09:58→21:39)
[2016-10-05] MEDS: SENNOSIDES 8.6 MG TABLET PO SCH ×2 (09:58→21:47)
[2016-10-05] MEDS: LEVOTHYROXINE 50 MCG TABLET PO SCH (09:58)
[2016-10-05] MEDS: CHOLECALCIFEROL (VITAMIN D3) 5,000 UNIT CAPSULE PO SCH (09:58)
[2016-10-05] MEDS: VITAMIN B COMPLEX TABLET. PO SCH (09:58)
[2016-10-05] MEDS: FERROUS SULFATE 325 MG TABLET. PO SCH (09:59)
[2016-10-05] MEDS: PANTOPRAZOLE 40 MG TABLET.DR. PO SCH (09:59)
[2016-10-05] MEDS: NYSTATIN TOPICAL POWDER 15GM BOTTLE. TP SCH ×2 (09:59→21:45)
[2016-10-05 11:00] VITALS: BP 122/56
--- NOTE | 2016-10-05 12:09 | PDOC ---
PROGRESS NOTES Subjective Subjective no new complaints Objective Objective Vital Signs Date Time Temp Pulse Resp B/P (MAP) Pulse Ox O2 Delivery O2 Flow Rate FiO2 10/05/16 09:57 80 122/56 10/05/16 09:24 96 Room Air 10/05/16 07:00 98.2 18 98.2 10/05/16 03:00 2.0 Intake and Output 10/05/16 07:00 Intake Total 400 ml Balance 400 ml Intake Oral 400 ml # Voids 7 # Bowel Movements 1 Physical Exam Abdomen: Soft, No tenderness Heart: Regular rate (SR), Normal S1, Normal S2, Other (2/6 systolic murmur to LLS border) Extremities: No cyanosis, Other (1+ bilateral LE pitting edema) General: Alert, Oriented X3, Cooperative, No acute distress HEENT: Atraumatic, Mucous membr. moist/pink Lungs: Other (diffuse expiratory wheeze) MUSCULOSKELETAL: Osteoarthritic changes both hands, Other (multiple contractures) Neuro: Normal speech, Sensation intact Psych/Mental Status: Mental status NL, Mood NL Skin: No breakdown, No significant lesion Diagnosis Problem List Problems Medical Problems: (1) Chest pain Status: Acute (2) Elevated troponin Status: Acute (3) Sepsis Status: Acute (4) SVT (supraventricular tachycardia) Status: Acute Assessment Assessment Assessment: positive blood c/s on iv antibiotics 1. chest pain with h/o CAD chronic ASA 325mg restarted 10/01 2. leukocytosis low grade fever 3. AF Pradaxa restarted 10/01 4. CHF diastolic with normal EF 5. DM II with PVD chronic insulin 6. Recent GIB with rectal bleeding likely diverticular bleed August 2016 7. HTN 8. h/o GIB June 2016 and August 2016 requiring PRC 9. non erosive gastritis 10. COPD 11. 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 diverticulosis large colon 14. internal hemorrhoids 15. BI 16. depression 17. Vitamin D def 18. h/o PE 19. moderate chronic PCL malnutrition 20. hypertensive with diabetes CKD III PLAN: Vanco+meropenum iv antibiotics oral antibiotics soon d/c back to [place] friday. d/c iv fluids. labs noted ok chest pain/abnormal troponin cardiology consult ASA 325mg ED Chronic ASA 325mg daily -decreased to 81mg daily SVT h/o AF off Pradaxa due to recent GIB adenosine in ED Mg 1.6 TSH normal last admit Dig 125mcg started 10/03/16 Metoprolol tart 12.5mg bid -will add parameter to hold if SBP <110 or HR <55 leukocytosis low grade temp UA negative Rocephin IV x 1 BC pending CXR essentially negative BC + anaerobic gram neg deepak x1 btl, aerobic grm + coccia pairs in chains x1 bottle consult ID - Vanco 1.25mg IV x 1 Invanz IV daily DM II FSBS/SSI resume home meds BS 87-136 CHF Zaroxlyn 2.5mg every other day-currently on hold along with K replacement. daily wt IO Admit wt 186.19 10/04 184.13 ECHO 10/03 EF 55-60% Anemia FE deficiency/with h/o GIB Admit Hgb 10.1 10/04 9.1 bleed scan last admit negative monitor Problems: Plan Plan of Care Problems Medical Problems: (1) Chest pain Status: Acute (2) Elevated troponin Status: Acute (3) Sepsis Status: Acute (4) SVT (supraventricular tachycardia) Status: Acute Comment Review of Relevant I have reviewed the following items tyler (where applicable) has been applied. Labs Laboratory Tests Test 10/04/16 16:43 10/04/16 21:57 10/05/16 05:00 10/05/16 07:44 Glucose (Fingerstick) 81 mg/dL (70-99) 104 mg/dL (70-99) 75 mg/dL (70-99) White Blood Count 8.2 x10^3/uL (4.0-11.0) Red Blood Count 3.51 x10^6/uL (4.30-5.70) Hemoglobin 9.2 g/dL (13.0-17.5) Hematocrit 27.8 % (39.0-53.0) Mean Corpuscular Volume 79 fL (79-100) Mean Corpuscular Hemoglobin 26 pg (25-35) Mean Corpuscular Hemoglobin Concent 33 g/dL (31-37) Red Cell Distribution Width 17.5 % (11.5-14.5) Platelet Count 464 x10^3/uL (140-400) Neutrophils (%) (Auto) 64 % (31-73) Lymphocytes (%) (Auto) 21 % (24-48) Monocytes (%) (Auto) 11 % (0-9) Eosinophils (%) (Auto) 4 % (0-3) Basophils (%) (Auto) 1 % (0-3) Neutrophils # (Auto) 5.2 x10^3uL (1.8-7.7) Lymphocytes # (Auto) 1.7 x10^3/uL (1.0-4.8) Monocytes # (Auto) 0.9 x10^3/uL (0.0-1.1) Eosinophils # (Auto) 0.3 x10^3/uL (0.0-0.7) Basophils # (Auto) 0.1 x10^3/uL (0.0-0.2) Sodium Level 139 mmol/L (136-145) Potassium Level 3.9 mmol/L (3.5-5.1) Chloride Level 106 mmol/L (98-107) Carbon Dioxide Level 25 mmol/L (21-32) Anion Gap 8 (6-14) Blood Urea Nitrogen 13 mg/dL (8-26) Creatinine 1.0 mg/dL (0.7-1.3) Estimated GFR (Cockcroft-Gault) 73.5 Glucose Level 82 mg/dL (70-99) Calcium Level 8.0 mg/dL (8.5-10.1) Test 10/05/16 09:55 Glucose (Fingerstick) 97 mg/dL (70-99) Microbiology 10/02/16 Blood Culture - Final, Complete 10/02/16 Blood Culture Result 1 (BECCA) - Final, Complete 10/02/16 Antimicrobic Susceptibility - Final, Complete Medications Current Medications Meropenem 500 mg/ Sodium Chloride 50 ml @ 100 mls/hr Q8HRS IV Last administered on 10/05/16t 06:29; Start 10/04/16 at 14:00 Vancomycin HCl (Vanco Per Pharmacy) 1 each PRN DAILY PRN MC SEE COMMENTS; Start 10/05/16 at 12:15 Vitals/I & O Vital Sign - Last 24 Hours 10/04/16 10/04/16 10/04/16 10/04/16 14:19 15:20 19:00 19:10 Temp 98.0 97.7 98.0 97.7 Pulse 81 73 Resp 20 16 B/P (MAP) 99/53 (68) 96/49 (65) Pulse Ox 94 100 92 O2 Delivery Room Air Room Air Room Air Room Air 10/04/16 10/04/16 10/05/16 10/05/16 20:00 23:00 03:00 07:00 Temp 98.7 98.5 98.2 98.7 98.5 98.2 Pulse 77 75 79 Resp 20 16 18 B/P (MAP) 100/50 (67) 105/56 (72) 111/58 (75) Pulse Ox 95 94 96 O2 Delivery Nasal Cannula Nasal Cannula Nasal Cannula Nasal Cannula O2 Flow Rate 2.5 2.0 2.0 10/05/16 10/05/16 10/05/16 07:56 09:24 09:57 Pulse 80 B/P (MAP) 122/56 Pulse Ox 96 O2 Delivery Room Air Room Air Intake and Output 10/04/16 10/04/16 10/05/16 15:00 23:00 07:00 Intake Total 400 ml Balance 400 ml SOPHIA HIDALGO MD Oct 05, 2016 12:09
[2016-10-05] MEDS: VANCOMYCIN PER PHARMACY MC PRN (12:20)
[2016-10-05] MEDS ORDERED: VANCOMYCIN 2 GM in IV NORMAL SALINE 500ML BAG 500 ML IV ONE (12:30)
[2016-10-05 15:00] VITALS: BP 90/55
[2016-10-05 19:20] VITALS: BP 104/65
[2016-10-05] MEDS: MIRTAZAPINE 15 MG TAB.RAPDIS PO SCH (21:38)
[2016-10-05] MEDS: CETIRIZINE HCL 10 MG TABLET. PO SCH (21:38)
[2016-10-05] MEDS: MONTELUKAST SODIUM 10 MG TABLET. PO SCH (21:38)
[2016-10-05] MEDS: ATORVASTATIN CALCIUM 40 MG TABLET. PO SCH (21:38)
[2016-10-05] MEDS: INSULIN DETEMIR 300 UNITS/3 ML INSULN.PEN. SQ SCH (21:50)
[2016-10-05 23:25] VITALS: BP 117/69
[2016-10-06] MEDS: VANCOMYCIN 1.25 GM in IV NORMAL SALINE 250ML 250 ML IV SCH ×2 (03:18→13:19)
[2016-10-06 03:20] VITALS: BP 105/78
[2016-10-06 05:32] LABS: BASO # 0.1 x10^3/uL (0.0-0.2); BASO % 1 % (0-3); EOS % 4 % (0-3); HEMATOCRIT 28.2 % (39.0-53.0); HEMOGLOBIN 9.1 g/dL (13.0-17.5); LYMPH # 2.3 x10^3/uL (1.0-4.8); LYMPH % 26 % (24-48); MEAN CORPUSCULAR HEMOGLOBIN 26 pg (25-35); MEAN CORPUSCULAR HGB CONC 32 g/dL (31-37); MEAN CORPUSCULAR VOLUME 81 fL (79-100); MONO % 10 % (0-9); NEUT % 60 % (31-73); PLATELET COUNT 480 x10^3/uL (140-400); RED BLOOD COUNT 3.47 x10^6/uL (4.30-5.70); RED CELL DISTRIBUTION WIDTH 17.1 % (11.5-14.5); WHITE BLOOD COUNT 8.7 x10^3/uL (4.0-11.0)
[2016-10-06 05:51] LABS: CALCIUM 7.8 mg/dL (8.5-10.1); GFR 73.5; POTASSIUM 4.1 mmol/L (3.5-5.1)
[2016-10-06] MEDS: MEROPENEM 500 MG in IV NORMAL SALINE 50ML 50 ML IV SCH ×3 (06:20→21:37)
[2016-10-06 07:00] VITALS: BP 98/49
[2016-10-06] MEDS: IPRATRPIUM/ALBUTEROL 0.5/2.5MG 3 ML NEBU. IH SCH ×4 (07:51→19:16)
[2016-10-06] MEDS: INSULIN ASPART 300 UNITS/3 ML INSULN.PEN SQ SCH ×3 (08:00→16:42)
[2016-10-06] MEDS: SENNOSIDES 8.6 MG TABLET PO SCH ×2 (08:20→21:40)
[2016-10-06] MEDS: OMEGA-3 FATTY ACIDS/FISH OIL 1,000 MG CAPSULE. PO SCH ×2 (08:20→21:37)
[2016-10-06] MEDS: SPIRONOLACTONE 25 MG TABLET PO SCH ×2 (08:20→21:41)
[2016-10-06] MEDS: MAGNESIUM OXIDE 400 MG TABLET PO SCH ×2 (08:20→21:39)
[2016-10-06] MEDS: ASPIRIN ENTERIC COATED 81 MG TABLET.DR. PO SCH (08:20)
[2016-10-06] MEDS: METOCLOPRAMIDE 5 MG TABLET. PO SCH ×2 (08:20→21:39)
[2016-10-06] MEDS: VITAMIN B COMPLEX TABLET. PO SCH (08:20)
[2016-10-06] MEDS: FERROUS SULFATE 325 MG TABLET. PO SCH (08:20)
[2016-10-06] MEDS: buPROPion 100 MG TABLET PO SCH (08:20)
[2016-10-06] MEDS: DABIGATRAN ETEXILATE 150 MG CAPSULE. PO SCH ×2 (08:20→21:40)
[2016-10-06] MEDS: CHOLECALCIFEROL (VITAMIN D3) 5,000 UNIT CAPSULE PO SCH (08:21)
[2016-10-06] MEDS: DIVALPROEX SPRINKLES 125 MG CAPSULE. PO SCH ×2 (08:21→21:39)
[2016-10-06] MEDS: LEVOTHYROXINE 50 MCG TABLET PO SCH (08:21)
[2016-10-06] MEDS: PANTOPRAZOLE 40 MG TABLET.DR. PO SCH (08:21)
[2016-10-06] MEDS: MULTIVITAMIN with MINERAL TABLET. PO SCH (08:22)
[2016-10-06] MEDS: NYSTATIN TOPICAL POWDER 15GM BOTTLE. TP SCH ×2 (08:22→21:42)
[2016-10-06] MEDS: DIGOXIN 125 MCG TABLET. PO SCH (08:28)
[2016-10-06 11:00] VITALS: BP 101/55
--- NOTE | 2016-10-06 11:55 | PDOC ---
PROGRESS NOTES Subjective Subjective feels good ,smiling Objective Objective Vital Signs Date Time Temp Pulse Resp B/P (MAP) Pulse Ox O2 Delivery O2 Flow Rate FiO2 10/06/16 11:50 Room Air 10/06/16 11:00 97.8 73 20 101/55 (70) 98 97.8 10/06/16 08:00 2.0 Intake and Output 10/06/16 07:00 Intake Total 30 ml Balance 30 ml Intake Oral 30 ml # Voids 4 # Bowel Movements 2 Physical Exam Abdomen: Soft, No tenderness Heart: Regular rate (SR), Normal S1, Normal S2, Other (2/6 systolic murmur to LLS border) Extremities: No cyanosis, Other (1+ bilateral LE pitting edema) General: Alert, Oriented X3, Cooperative, No acute distress HEENT: Atraumatic, Mucous membr. moist/pink Lungs: Other (diffuse expiratory wheeze) MUSCULOSKELETAL: Osteoarthritic changes both hands, Other (multiple contractures) Neuro: Normal speech, Sensation intact Psych/Mental Status: Mental status NL, Mood NL Skin: No breakdown, No significant lesion Diagnosis Problem List Problems Medical Problems: (1) Chest pain Status: Acute (2) Elevated troponin Status: Acute (3) Sepsis Status: Acute (4) SVT (supraventricular tachycardia) Status: Acute Assessment Assessment Assessment: positive blood c/s Enterococcus on iv antibiotics. 1. chest pain with h/o CAD chronic ASA 325mg restarted 10/01 2. leukocytosis low grade fever 3. AF Pradaxa restarted 10/01 4. CHF diastolic with normal EF 5. DM II with PVD chronic insulin 6. Recent GIB with rectal bleeding likely diverticular bleed August 2016 7. HTN 8. h/o GIB June 2016 and August 2016 requiring PRC 9. non erosive gastritis 10. COPD 11. 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 diverticulosis large colon 14. internal hemorrhoids 15. BI 16. depression 17. Vitamin D def 18. h/o PE 19. moderate chronic PCL malnutrition 20. hypertensive with diabetes CKD III PLAN:d/c iv fluids Vanco+meropenum for enterococcus iv antibiotics? oral meds spoke with ID today d/c back to CT when off iv antibiotics d/c iv fluids. labs noted ok Problems: Plan Plan of Care Problems Medical Problems: (1) Chest pain Status: Acute (2) Elevated troponin Status: Acute (3) Sepsis Status: Acute (4) SVT (supraventricular tachycardia) Status: Acute Comment Review of Relevant I have reviewed the following items tyler (where applicable) has been applied. Labs Laboratory Tests Test 10/05/16 11:54 10/05/16 16:07 10/05/16 20:44 10/06/16 05:00 Glucose (Fingerstick) 102 mg/dL (70-99) 79 mg/dL (70-99) 109 mg/dL (70-99) White Blood Count 8.7 x10^3/uL (4.0-11.0) Red Blood Count 3.47 x10^6/uL (4.30-5.70) Hemoglobin 9.1 g/dL (13.0-17.5) Hematocrit 28.2 % (39.0-53.0) Mean Corpuscular Volume 81 fL (79-100) Mean Corpuscular Hemoglobin 26 pg (25-35) Mean Corpuscular Hemoglobin Concent 32 g/dL (31-37) Red Cell Distribution Width 17.1 % (11.5-14.5) Platelet Count 480 x10^3/uL (140-400) Neutrophils (%) (Auto) 60 % (31-73) Lymphocytes (%) (Auto) 26 % (24-48) Monocytes (%) (Auto) 10 % (0-9) Eosinophils (%) (Auto) 4 % (0-3) Basophils (%) (Auto) 1 % (0-3) Neutrophils # (Auto) 5.2 x10^3uL (1.8-7.7) Lymphocytes # (Auto) 2.3 x10^3/uL (1.0-4.8) Monocytes # (Auto) 0.8 x10^3/uL (0.0-1.1) Eosinophils # (Auto) 0.3 x10^3/uL (0.0-0.7) Basophils # (Auto) 0.1 x10^3/uL (0.0-0.2) Sodium Level 139 mmol/L (136-145) Potassium Level 4.1 mmol/L (3.5-5.1) Chloride Level 107 mmol/L (98-107) Carbon Dioxide Level 25 mmol/L (21-32) Anion Gap 7 (6-14) Blood Urea Nitrogen 14 mg/dL (8-26) Creatinine 1.0 mg/dL (0.7-1.3) Estimated GFR (Cockcroft-Gault) 73.5 Glucose Level 86 mg/dL (70-99) Calcium Level 7.8 mg/dL (8.5-10.1) Test 10/06/16 08:06 10/06/16 11:05 Glucose (Fingerstick) 78 mg/dL (70-99) 122 mg/dL (70-99) Microbiology 10/02/16 Blood Culture - Final, Complete 10/02/16 Blood Culture Result 1 (BECCA) - Final, Complete 10/02/16 Antimicrobic Susceptibility - Final, Complete Medications Current Medications Vancomycin HCl 1 each 1X ONCE MC ; Start 10/07/16 at 00:30; Stop 10/07/16 at 00: 31 Vancomycin HCl (Vanco Per Pharmacy) 1 each PRN DAILY PRN MC SEE COMMENTS Last administered on 10/05/16 12:20; Start 10/05/16 at 12:15 Vancomycin HCl 1.25 gm/Sodium Chloride 250 ml @ 167 mls/hr Q12H IV Last administered on 10/06/16 03:18; Start 10/06/16 at 01:00 Vancomycin HCl 2 gm/Sodium Chloride 500 ml @ 250 mls/hr 1X ONCE IV Last administered on 10/05/16 13:31; Start 10/05/16 at 12:30; Stop 10/05/16 at 14:29; Status DC Vitals/I & O Vital Sign - Last 24 Hours 10/05/16 10/05/16 10/05/16 10/05/16 15:00 19:20 20:00 20:31 Temp 97.4 97.9 97.4 97.9 Pulse 76 76 Resp 18 24 B/P (MAP) 90/55 (67) 104/65 (78) Pulse Ox 95 95 94 O2 Delivery Room Air Room Air Room Air Room Air O2 Flow Rate 2.0 10/05/16 10/06/16 10/06/16 10/06/16 23:25 03:20 07:00 07:52 Temp 97.5 97.8 98.0 97.5 97.8 98.0 Pulse 78 75 73 Resp 22 22 20 B/P (MAP) 117/69 (85) 105/78 (87) 98/49 (65) Pulse Ox 95 95 96 94 O2 Delivery Room Air Room Air Room Air Room Air 10/06/16 10/06/16 10/06/16 10/06/16 08:00 08:28 11:00 11:50 Temp 97.8 97.8 Pulse 75 73 Resp 20 B/P (MAP) 105/78 101/55 (70) Pulse Ox 98 O2 Delivery Room Air Room Air Room Air O2 Flow Rate 2.0 Intake and Output 10/05/16 10/05/16 10/06/16 15:00 23:00 07:00 Intake Total 30 ml Balance 30 ml SOPHIA HIDALGO MD Oct 06, 2016 11:55
--- NOTE | 2016-10-06 12:08 | PDOC ---
Infectious Disease Note Subjective Subjective Comfortable, denies pain or upset stomach Wants to go home No fever or diarrhea Vital Sign Vital Signs Vital Signs Date Time Temp Pulse Resp B/P (MAP) Pulse Ox O2 Delivery O2 Flow Rate FiO2 10/06/16 11:50 Room Air 10/06/16 11:00 97.8 73 20 101/55 (70) 98 97.8 10/06/16 08:00 2.0 Physical Exam PHYSICAL EXAM GENERAL: Lying down, NAD HEENT: Oral cavity pink, edentulous LUNGS: Clear anteriorly, nonlabored HEART: S1S2 ABD: Soft, NT, BS present EXT: BLE trace edema. No cyanosis. 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 SKIN: No rash IV: ok Labs Lab Laboratory Tests Test 10/05/16 16:07 10/05/16 20:44 10/06/16 05:00 10/06/16 08:06 Glucose (Fingerstick) 79 mg/dL (70-99) 109 mg/dL (70-99) 78 mg/dL (70-99) White Blood Count 8.7 x10^3/uL (4.0-11.0) Red Blood Count 3.47 x10^6/uL (4.30-5.70) Hemoglobin 9.1 g/dL (13.0-17.5) Hematocrit 28.2 % (39.0-53.0) Mean Corpuscular Volume 81 fL (79-100) Mean Corpuscular Hemoglobin 26 pg (25-35) Mean Corpuscular Hemoglobin Concent 32 g/dL (31-37) Red Cell Distribution Width 17.1 % (11.5-14.5) Platelet Count 480 x10^3/uL (140-400) Neutrophils (%) (Auto) 60 % (31-73) Lymphocytes (%) (Auto) 26 % (24-48) Monocytes (%) (Auto) 10 % (0-9) Eosinophils (%) (Auto) 4 % (0-3) Basophils (%) (Auto) 1 % (0-3) Neutrophils # (Auto) 5.2 x10^3uL (1.8-7.7) Lymphocytes # (Auto) 2.3 x10^3/uL (1.0-4.8) Monocytes # (Auto) 0.8 x10^3/uL (0.0-1.1) Eosinophils # (Auto) 0.3 x10^3/uL (0.0-0.7) Basophils # (Auto) 0.1 x10^3/uL (0.0-0.2) Sodium Level 139 mmol/L (136-145) Potassium Level 4.1 mmol/L (3.5-5.1) Chloride Level 107 mmol/L (98-107) Carbon Dioxide Level 25 mmol/L (21-32) Anion Gap 7 (6-14) Blood Urea Nitrogen 14 mg/dL (8-26) Creatinine 1.0 mg/dL (0.7-1.3) Estimated GFR (Cockcroft-Gault) 73.5 Glucose Level 86 mg/dL (70-99) Calcium Level 7.8 mg/dL (8.5-10.1) Test 10/06/16 11:05 Glucose (Fingerstick) 122 mg/dL (70-99) Micro 10/02 BLD CULT RESULT 1 Final Enterococcus faecalis Recovered from aerobic and anaerobic bottles. Antibiotic RSLT#1 Ciprofloxacin S Levofloxacin S Nitrofurantoin S Penicillin S Tetracycline R Vancomycin S BLOOD CULTURE Final GRAM NEGATIVE RODS IN 1 OF 2 BOTTLES OF 1 SET THE SECOND BOTTLE OF THIS SET (AEROBIC BOTTLE) HAS GRAM POSITIVE COCCI IN PAIRS AND CHAINS, SUGGESTIVE OF STREP. AMMENDED REPORT: [employer] CALLED AND SAID THE AEROBIC BOTTLE IS GROWING ENTEROCOCCUS AND NO GRAM NEGATIVE RODS AT THIS TIME. Objective Assessment Polymicrobial bacteremia, origin is unclear. GNR and GPC. Final report (amended ) Enterococcus-PCN S from 10/02. POA. TTE neg. Looks great CVA Cerebrovascular accident. Supraventricular tachycardia with rapid ventricular rate. Diabetes. Hypertension. Plan Plan of Care D/c vanc Cont meropenem for now- modify soon Repeat BC f/u am labs Supportive care D/w Dr. Scott Hold discharge Attending Co-Sign Attending Co-Sign The patient was seen and interviewed as well as examined at the bedside. The chart was reviewed. The case was discussed. Agree with the plan of care. GOVIND FLANAGAN APRN Oct 06, 2016 12:07 JEFFREY GOODEN MD Oct 06, 2016 14:08
[2016-10-06] MEDS: VANCOMYCIN PER PHARMACY MC PRN (13:17)
[2016-10-06 15:00] VITALS: BP 115/58
[2016-10-06 19:20] VITALS: BP 96/64
[2016-10-06] MEDS: CETIRIZINE HCL 10 MG TABLET. PO SCH (21:37)
[2016-10-06] MEDS: MONTELUKAST SODIUM 10 MG TABLET. PO SCH (21:37)
[2016-10-06] MEDS: MIRTAZAPINE 15 MG TAB.RAPDIS PO SCH (21:39)
[2016-10-06] MEDS: ATORVASTATIN CALCIUM 40 MG TABLET. PO SCH (21:40)
[2016-10-06] MEDS: INSULIN DETEMIR 300 UNITS/3 ML INSULN.PEN. SQ SCH (21:42)
[2016-10-06 23:20] VITALS: BP 94/54
[2016-10-07 03:20] VITALS: BP 98/62
[2016-10-07 04:37] LABS: BASO # 0.1 x10^3/uL (0.0-0.2); BASO % 1 % (0-3); EOS % 3 % (0-3); HEMATOCRIT 30.1 % (39.0-53.0); HEMOGLOBIN 9.6 g/dL (13.0-17.5); LYMPH # 2.1 x10^3/uL (1.0-4.8); LYMPH % 27 % (24-48); MEAN CORPUSCULAR HEMOGLOBIN 26 pg (25-35); MEAN CORPUSCULAR HGB CONC 32 g/dL (31-37); MEAN CORPUSCULAR VOLUME 80 fL (79-100); MONO % 9 % (0-9); NEUT % 60 % (31-73); PLATELET COUNT 513 x10^3/uL (140-400); RED BLOOD COUNT 3.74 x10^6/uL (4.30-5.70); RED CELL DISTRIBUTION WIDTH 17.6 % (11.5-14.5)
[2016-10-07 04:54] LABS: CALCIUM 8.3 mg/dL (8.5-10.1); CREATININE 1.1 mg/dL (0.7-1.3); GFR 65.8; POTASSIUM 4.4 mmol/L (3.5-5.1)
[2016-10-07] MEDS: MEROPENEM 500 MG in IV NORMAL SALINE 50ML 50 ML IV SCH ×3 (05:33→21:14)
[2016-10-07 07:00] VITALS: BP 78/50
[2016-10-07] MEDS: IPRATRPIUM/ALBUTEROL 0.5/2.5MG 3 ML NEBU. IH SCH ×4 (07:42→19:53)
[2016-10-07] MEDS: INSULIN ASPART 300 UNITS/3 ML INSULN.PEN SQ SCH ×3 (08:00→17:00)
--- NOTE | 2016-10-07 08:36 | PDOC ---
EFRA CARRASQUILLO SENIOR SUPPORT ANALYST 10/07/16 0836: IM PROGRESS NOTES- Subjective Subjective no chest pain or palpitations through night Objective Objective alert no distress Vitals Vital Signs Date Time Temp Pulse Resp B/P (MAP) Pulse Ox O2 Delivery O2 Flow Rate FiO2 10/07/16 07:43 97 Room Air 10/07/16 07:00 98.8 75 22 78/50 (59) 98.8 10/06/16 08:00 2.0 Input & Output Intake and Output 10/07/16 07:00 Intake Total 350 ml Balance 350 ml Blood Product IV Normal Saline Flush 350 ml # Voids 4 Physical Exam Physical Exam General appearance - alert, chronically ill appearing, and in no distress Mental Status - alert, oriented to person, place, and time, affect appropriate to mood Head - normal Chest - clear to auscultation, no wheezes, rales or rhonchi, symmetric air entry Heart - S1 and S2 normal Abdomen - soft, nontender, nondistended, no masses or organomegaly Neurological - no acute focal neurological deficits noted. 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 Musculoskeletal - no muscular tenderness noted Extremities - no pedal edema Skin - warm and dry Labs Laboratory Tests Test 10/05/16 09:55 10/05/16 11:54 10/05/16 16:07 10/05/16 20:44 Glucose (Fingerstick) 97 mg/dL (70-99) 102 mg/dL (70-99) 79 mg/dL (70-99) 109 mg/dL (70-99) Test 10/06/16 05:00 10/06/16 08:06 10/06/16 11:05 10/06/16 16:03 White Blood Count 8.7 x10^3/uL (4.0-11.0) Red Blood Count 3.47 x10^6/uL (4.30-5.70) Hemoglobin 9.1 g/dL (13.0-17.5) Hematocrit 28.2 % (39.0-53.0) Mean Corpuscular Volume 81 fL (79-100) Mean Corpuscular Hemoglobin 26 pg (25-35) Mean Corpuscular Hemoglobin Concent 32 g/dL (31-37) Red Cell Distribution Width 17.1 % (11.5-14.5) Platelet Count 480 x10^3/uL (140-400) Neutrophils (%) (Auto) 60 % (31-73) Lymphocytes (%) (Auto) 26 % (24-48) Monocytes (%) (Auto) 10 % (0-9) Eosinophils (%) (Auto) 4 % (0-3) Basophils (%) (Auto) 1 % (0-3) Neutrophils # (Auto) 5.2 x10^3uL (1.8-7.7) Lymphocytes # (Auto) 2.3 x10^3/uL (1.0-4.8) Monocytes # (Auto) 0.8 x10^3/uL (0.0-1.1) Eosinophils # (Auto) 0.3 x10^3/uL (0.0-0.7) Basophils # (Auto) 0.1 x10^3/uL (0.0-0.2) Sodium Level 139 mmol/L (136-145) Potassium Level 4.1 mmol/L (3.5-5.1) Chloride Level 107 mmol/L (98-107) Carbon Dioxide Level 25 mmol/L (21-32) Anion Gap 7 (6-14) Blood Urea Nitrogen 14 mg/dL (8-26) Creatinine 1.0 mg/dL (0.7-1.3) Estimated GFR (Cockcroft-Gault) 73.5 Glucose Level 86 mg/dL (70-99) Calcium Level 7.8 mg/dL (8.5-10.1) Glucose (Fingerstick) 78 mg/dL (70-99) 122 mg/dL (70-99) 66 mg/dL (70-99) Test 10/06/16 21:02 10/07/16 04:10 10/07/16 08:08 Glucose (Fingerstick) 130 mg/dL (70-99) 96 mg/dL (70-99) White Blood Count 8.0 x10^3/uL (4.0-11.0) Red Blood Count 3.74 x10^6/uL (4.30-5.70) Hemoglobin 9.6 g/dL (13.0-17.5) Hematocrit 30.1 % (39.0-53.0) Mean Corpuscular Volume 80 fL (79-100) Mean Corpuscular Hemoglobin 26 pg (25-35) Mean Corpuscular Hemoglobin Concent 32 g/dL (31-37) Red Cell Distribution Width 17.6 % (11.5-14.5) Platelet Count 513 x10^3/uL (140-400) Neutrophils (%) (Auto) 60 % (31-73) Lymphocytes (%) (Auto) 27 % (24-48) Monocytes (%) (Auto) 9 % (0-9) Eosinophils (%) (Auto) 3 % (0-3) Basophils (%) (Auto) 1 % (0-3) Neutrophils # (Auto) 4.8 x10^3uL (1.8-7.7) Lymphocytes # (Auto) 2.1 x10^3/uL (1.0-4.8) Monocytes # (Auto) 0.7 x10^3/uL (0.0-1.1) Eosinophils # (Auto) 0.3 x10^3/uL (0.0-0.7) Basophils # (Auto) 0.1 x10^3/uL (0.0-0.2) Sodium Level 141 mmol/L (136-145) Potassium Level 4.4 mmol/L (3.5-5.1) Chloride Level 109 mmol/L (98-107) Carbon Dioxide Level 26 mmol/L (21-32) Anion Gap 6 (6-14) Blood Urea Nitrogen 15 mg/dL (8-26) Creatinine 1.1 mg/dL (0.7-1.3) Estimated GFR (Cockcroft-Gault) 65.8 Glucose Level 115 mg/dL (70-99) Calcium Level 8.3 mg/dL (8.5-10.1) Laboratory Tests Test 10/06/16 11:05 10/06/16 16:03 10/06/16 21:02 10/07/16 04:10 Glucose (Fingerstick) 122 mg/dL (70-99) 66 mg/dL (70-99) 130 mg/dL (70-99) White Blood Count 8.0 x10^3/uL (4.0-11.0) Red Blood Count 3.74 x10^6/uL (4.30-5.70) Hemoglobin 9.6 g/dL (13.0-17.5) Hematocrit 30.1 % (39.0-53.0) Mean Corpuscular Volume 80 fL (79-100) Mean Corpuscular Hemoglobin 26 pg (25-35) Mean Corpuscular Hemoglobin Concent 32 g/dL (31-37) Red Cell Distribution Width 17.6 % (11.5-14.5) Platelet Count 513 x10^3/uL (140-400) Neutrophils (%) (Auto) 60 % (31-73) Lymphocytes (%) (Auto) 27 % (24-48) Monocytes (%) (Auto) 9 % (0-9) Eosinophils (%) (Auto) 3 % (0-3) Basophils (%) (Auto) 1 % (0-3) Neutrophils # (Auto) 4.8 x10^3uL (1.8-7.7) Lymphocytes # (Auto) 2.1 x10^3/uL (1.0-4.8) Monocytes # (Auto) 0.7 x10^3/uL (0.0-1.1) Eosinophils # (Auto) 0.3 x10^3/uL (0.0-0.7) Basophils # (Auto) 0.1 x10^3/uL (0.0-0.2) Sodium Level 141 mmol/L (136-145) Potassium Level 4.4 mmol/L (3.5-5.1) Chloride Level 109 mmol/L (98-107) Carbon Dioxide Level 26 mmol/L (21-32) Anion Gap 6 (6-14) Blood Urea Nitrogen 15 mg/dL (8-26) Creatinine 1.1 mg/dL (0.7-1.3) Estimated GFR (Cockcroft-Gault) 65.8 Glucose Level 115 mg/dL (70-99) Calcium Level 8.3 mg/dL (8.5-10.1) Test 10/07/16 08:08 Glucose (Fingerstick) 96 mg/dL (70-99) Meds Current Medications Vancomycin HCl 1 each 1X ONCE MC ; Start 10/07/16 at 00:30; Stop 10/07/16 at 00: 30; Status DC Assessment Assessment Assessment: 1. chest pain with h/o CAD chronic ASA 325mg restarted 10/01 2. leukocytosis low grade fever 3. AF Pradaxa restarted 10/01 4. CHF diastolic with normal EF 5. DM II with PVD chronic insulin 6. Recent GIB with rectal bleeding likely diverticular bleed August 2016 7. HTN 8. h/o GIB June 2016 and August 2016 requiring PRC 9. non erosive gastritis 10. COPD 11. 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 diverticulosis large colon 14. internal hemorrhoids 15. BI 16. depression 17. Vitamin D def 18. h/o PE 19. moderate chronic PCL malnutrition 20. hypertensive with diabetes CKD III 21. Sepsis with bacteremia Enterococcus facialis PLAN: PLAN: chest pain/abnormal troponin cardiology consult ASA 325mg ED Chronic ASA 325mg daily -decreased to 81mg daily SVT h/o AF Pradaxa since admission monitor HH -- GIB adenosine in ED Mg 1.6 TSH normal last admit Dig 125mcg started 10/03/16 Metoprolol tart 12.5mg bid -will add parameter to hold if SBP <110 or HR <55 bacteremia with sepsis leukocytosis low grade temp UA negative Rocephin IV x 1 BC +enterococcus facialis CXR essentially negative Vanco 1.25mg IV x 1 DC 10/05 Invanz IV daily -DC 10/04 Meropenem IV 10/04 started DM II FSBS/SSI resume home meds BS 96-122 CHF Zaroxlyn 2.5mg every other day-currently on hold along with K replacement. daily wt IO Admit wt 186.19 10/06 185# ECHO 10/03 EF 55-60% Anemia FE deficiency/with h/o GIB Admit Hgb 10.1 10/06 9.6 bleed scan last admit negative monitor CKD III/hypomagnesia Admit BUN 17 10/06 15 Cr 1.3 1.1 K 4.3 4.4 Mg 1.6 10/04 2.0 Mg not treated, recheck and replacement orders placed-orders stopped 10/04 DVT/GI prophylaxis SCD/GALINA PPI For more details regarding further plans, please refer to the orders Plan Plan For more details regarding further plans, please refer to the orders. MERVAT MORE MD 10/07/16 0906: IM PROGRESS NOTES- Assessment Assessment Hypotension- BP 78/50- asymptomatic- continue to monitor,hold Metoprolol. Clinically improving. The patient was seen and examined by me. Chart reviewed and plan of care formulated. 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 For more details regarding further plans, please refer to the orders. EFRA CARRASQUILLO APRN Oct 07, 2016 08:36 MERVAT MORE MD Oct 07, 2016 09:06
[2016-10-07] MEDS ORDERED: BISACODYL 10 MG SUPP.RECT. PR PRN (09:00)
[2016-10-07] MEDS: SPIRONOLACTONE 25 MG TABLET PO SCH ×2 (09:00→21:13)
[2016-10-07] MEDS: FERROUS SULFATE 325 MG TABLET. PO SCH (09:33)
[2016-10-07] MEDS: DIGOXIN 125 MCG TABLET. PO SCH (09:33)
[2016-10-07] MEDS: ASPIRIN ENTERIC COATED 81 MG TABLET.DR. PO SCH (09:33)
[2016-10-07] MEDS: DABIGATRAN ETEXILATE 150 MG CAPSULE. PO SCH ×2 (09:33→21:11)
[2016-10-07] MEDS: METOCLOPRAMIDE 5 MG TABLET. PO SCH ×2 (09:34→21:12)
[2016-10-07] MEDS: PANTOPRAZOLE 40 MG TABLET.DR. PO SCH (09:34)
[2016-10-07] MEDS: MAGNESIUM OXIDE 400 MG TABLET PO SCH ×2 (09:34→21:11)
[2016-10-07] MEDS: CHOLECALCIFEROL (VITAMIN D3) 5,000 UNIT CAPSULE PO SCH (09:34)
[2016-10-07] MEDS: MULTIVITAMIN with MINERAL TABLET. PO SCH (09:34)
[2016-10-07] MEDS: DIVALPROEX SPRINKLES 125 MG CAPSULE. PO SCH ×2 (09:34→21:12)
[2016-10-07] MEDS: OMEGA-3 FATTY ACIDS/FISH OIL 1,000 MG CAPSULE. PO SCH ×2 (09:34→21:12)
[2016-10-07] MEDS: LEVOTHYROXINE 50 MCG TABLET PO SCH (09:34)
[2016-10-07] MEDS: SENNOSIDES 8.6 MG TABLET PO SCH ×2 (09:35→21:13)
[2016-10-07] MEDS: VITAMIN B COMPLEX TABLET. PO SCH (09:35)
[2016-10-07] MEDS: buPROPion 100 MG TABLET PO SCH (09:35)
[2016-10-07] MEDS: NYSTATIN TOPICAL POWDER 15GM BOTTLE. TP SCH ×2 (09:35→21:15)
--- NOTE | 2016-10-07 10:15 | PDOC ---
Infectious Disease Note Subjective Subjective Comfortable, denies pain or upset stomach Wants to go home No fever or diarrhea ROS ROS GEN: Denies fevers, chills, sweats HEENT: Denies blurred vision, sore throat CV: Denies chest pain RESP: Denies shortness of air, cough GI: Denies n/v/d NEURO: Denies confusion, dizziness MSK: Denies weakness, joint pain/swelling Vital Sign Vital Signs Vital Signs Date Time Temp Pulse Resp B/P (MAP) Pulse Ox O2 Delivery O2 Flow Rate FiO2 10/07/16 09:33 75 78/50 10/07/16 07:43 97 Room Air 10/07/16 07:00 98.8 22 98.8 10/06/16 08:00 2.0 Physical Exam PHYSICAL EXAM GENERAL: Lying down, NAD, looks well HEENT: Oral cavity pink, edentulous LUNGS: Clear anteriorly, nonlabored HEART: S1S2 ABD: Soft, NT, BS present EXT: BLE trace edema. No cyanosis. contractures [employer]: Alert, follows commands SKIN: No rash IV: ok Labs Lab Laboratory Tests Test 10/06/16 11:05 10/06/16 16:03 10/06/16 21:02 10/07/16 04:10 Glucose (Fingerstick) 122 mg/dL (70-99) 66 mg/dL (70-99) 130 mg/dL (70-99) White Blood Count 8.0 x10^3/uL (4.0-11.0) Red Blood Count 3.74 x10^6/uL (4.30-5.70) Hemoglobin 9.6 g/dL (13.0-17.5) Hematocrit 30.1 % (39.0-53.0) Mean Corpuscular Volume 80 fL (79-100) Mean Corpuscular Hemoglobin 26 pg (25-35) Mean Corpuscular Hemoglobin Concent 32 g/dL (31-37) Red Cell Distribution Width 17.6 % (11.5-14.5) Platelet Count 513 x10^3/uL (140-400) Neutrophils (%) (Auto) 60 % (31-73) Lymphocytes (%) (Auto) 27 % (24-48) Monocytes (%) (Auto) 9 % (0-9) Eosinophils (%) (Auto) 3 % (0-3) Basophils (%) (Auto) 1 % (0-3) Neutrophils # (Auto) 4.8 x10^3uL (1.8-7.7) Lymphocytes # (Auto) 2.1 x10^3/uL (1.0-4.8) Monocytes # (Auto) 0.7 x10^3/uL (0.0-1.1) Eosinophils # (Auto) 0.3 x10^3/uL (0.0-0.7) Basophils # (Auto) 0.1 x10^3/uL (0.0-0.2) Sodium Level 141 mmol/L (136-145) Potassium Level 4.4 mmol/L (3.5-5.1) Chloride Level 109 mmol/L (98-107) Carbon Dioxide Level 26 mmol/L (21-32) Anion Gap 6 (6-14) Blood Urea Nitrogen 15 mg/dL (8-26) Creatinine 1.1 mg/dL (0.7-1.3) Estimated GFR (Cockcroft-Gault) 65.8 Glucose Level 115 mg/dL (70-99) Calcium Level 8.3 mg/dL (8.5-10.1) Test 10/07/16 08:08 Glucose (Fingerstick) 96 mg/dL (70-99) Objective Assessment Polymicrobial bacteremia, origin is unclear. GNR and GPC. Final report (amended ) Enterococcus-PCN S from 10/02. POA. TTE neg. Looks great ? Contamination CVA Cerebrovascular accident. Supraventricular tachycardia with rapid ventricular rate. Diabetes. Hypertension. Plan Plan of Care re-evaluated PCN allergy - he denies. Reviewed records back to 2013 Trial dose of Augmentin d/w nursing. If tolerates would treat through 10/12 JEFFREY GOODEN MD Oct 07, 2016 10:15
[2016-10-07 10:38] VITALS: BP 102/53
[2016-10-07] MEDS: AMOXICILLIN/K CLAV 875/125MG TABLET. PO SCH ×2 (12:12→21:12)
[2016-10-07 15:00] VITALS: BP 95/48
[2016-10-07] MEDS: ANTI-COAG MONITOR BY PHARMACY. MC PRN (17:09)
[2016-10-07 19:22] VITALS: BP 91/41
[2016-10-07] MEDS: MONTELUKAST SODIUM 10 MG TABLET. PO SCH (21:12)
[2016-10-07] MEDS: MIRTAZAPINE 15 MG TAB.RAPDIS PO SCH (21:12)
[2016-10-07] MEDS: CETIRIZINE HCL 10 MG TABLET. PO SCH (21:12)
[2016-10-07] MEDS: ATORVASTATIN CALCIUM 40 MG TABLET. PO SCH (21:13)
[2016-10-07] MEDS: INSULIN DETEMIR 300 UNITS/3 ML INSULN.PEN. SQ SCH (21:20)
[2016-10-07 22:00] VITALS: BP 96/52
[2016-10-08 03:08] VITALS: BP 89/56
[2016-10-08 04:24] LABS: BASO # 0.1 x10^3/uL (0.0-0.2); BASO % 2 % (0-3); EOS % 5 % (0-3); HEMATOCRIT 31.2 % (39.0-53.0); HEMOGLOBIN 9.9 g/dL (13.0-17.5); LYMPH # 2.3 x10^3/uL (1.0-4.8); LYMPH % 29 % (24-48); MEAN CORPUSCULAR HEMOGLOBIN 26 pg (25-35); MEAN CORPUSCULAR HGB CONC 32 g/dL (31-37); MEAN CORPUSCULAR VOLUME 82 fL (79-100); MONO % 8 % (0-9); NEUT % 57 % (31-73); PLATELET COUNT 509 x10^3/uL (140-400); RED BLOOD COUNT 3.82 x10^6/uL (4.30-5.70); RED CELL DISTRIBUTION WIDTH 17.4 % (11.5-14.5); WHITE BLOOD COUNT 7.9 x10^3/uL (4.0-11.0)
[2016-10-08 04:37] LABS: CALCIUM 8.4 mg/dL (8.5-10.1); GFR 73.5; MAGNESIUM 1.6 mg/dL (1.8-2.4); POTASSIUM 3.9 mmol/L (3.5-5.1)
[2016-10-08] MEDS: MEROPENEM 500 MG in IV NORMAL SALINE 50ML 50 ML IV SCH (06:16)
--- NOTE | 2016-10-08 06:56 | PDOC3 ---
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 chest pain secondary to SVT-resolved after adenosine-- with h/o CAD 2. leukocytosis low grade fever bacteremia with sepsis 3. AF Pradaxa restarted 10/01 4. CHF diastolic with normal EF 5. DM II with PVD chronic insulin 6. Recent GIB with rectal bleeding likely diverticular bleed August 2016 7. HTN 8. h/o GIB June 2016 and August 2016 requiring PRC 9. non erosive gastritis 10. COPD 11. 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 diverticulosis large colon 14. internal hemorrhoids 15. BI 16. depression 17. Vitamin D def 18. h/o PE 19. moderate chronic PCL malnutrition 20. hypertension with CKD II 21. Sepsis with bacteremia Enterococcus facialis POA 22. SVT POA Consults Consults Cortes Mayberry MD Procedures Procedures APPROVED REPORT EXAM: Two-dimensional and M-mode echocardiogram with Doppler and color Doppler. Other Information Quality : Fair HR: 84bpm Rhythm : NSR INDICATION Arrhythmia, Elevated troponin 2D DIMENSIONS RVDd 2.9 (2.9-3.5cm) Left Atrium(2D) 3.6 (1.6-4.0cm) IVSd 1.0 (0.7-1.1cm) Aortic Root(2D) 3.5 (2.0-3.7cm) LVDd 5.0 (3.9-5.9cm) LVOT Diameter 2.3 (1.8-2.4cm) PWd 1.0 (0.7-1.1cm) LVDs 3.5 (2.5-4.0cm) FS (%) 30.9 % SV 70.2 ml LVEF(%) 58.3 (>50%) Aortic Valve AoV Peak Dion. 131.5cm/s AoV VTI 24.4cm AO Peak GR. 6.9mmHg LVOT Peak Dion. 99.6cm/s AO Mean GR. 4mmHg SUNIL (VMAX) 3.26cm2 Mitral Valve MV E Velocity 59.9cm/s MV E Peak Gr. 3mmHg MV DECEL TIME 225ms MV A Velocity 76.8cm/s MV E Mean Gr. 1mmHg E/A Ratio 0.8 MV A Duration 101ms Pulmonary Valve PV Peak Velocity 103.4cm/s Pulmonary Vein S1 Velocity 39.7cm/s D2 Velocity 30.0cm/s PVa duration 55msec LEFT VENTRICLE The left ventricle is normal size. There is normal left ventricular wall thickness. The left ventricular systolic function is normal and the ejection fraction is within normal range. The Ejection Fraction is 55-60%. There is normal LV segmental wall motion. Transmitral Doppler flow pattern is Grade I- abnormal relaxation pattern. RIGHT VENTRICLE The right ventricle is normal size. There is normal right ventricular wall thickness. The right ventricular systolic function is normal. ATRIA The left atrium is not well visualized but appears normal in size. The righ atrium is not well visualized but appears normal in size. The interatrial septum is intact with no evidence for an atrial septal defect or patent foramen ovale as noted on 2-D or Doppler imaging. AORTIC VALVE The aortic valve is not well visualized but appears mildly calcified and opens well. Doppler and Color Flow revealed no significant aortic regurgitation. There is no significant aortic valvular stenosis. MITRAL VALVE The mitral valve is not well visualized but appears to opens well. There is no mitral valve stenosis. Doppler and Color Flow revealed no mitral valve regurgitation noted. TRICUSPID VALVE The tricuspid valve is not well visualized but appears to opens well. Doppler and Color Flow revealed no tricuspid valve regurgitation noted. Unable to determine pulmonary artery pressure at exam time. PULMONIC VALVE The pulmonic valve is not visualized. There is no pulmonic valvular regurgitation or stenosis by spectral Doppler. GREAT VESSELS The aortic root is normal in size. The ascending aorta is not visualized. The pulmonary artery is not visualized. The IVC was obscured, unable to assess. PERICARDIAL EFFUSION There is no evidence of significant pericardial effusion. Critical Notification Critical Value: No <Conclusion> The left ventricular systolic function is normal and the ejection fraction is within normal range. The Ejection Fraction is 55-60%. There is grossly normal LV segmental wall motion. DICTATED and SIGNED BY: CHAU PEREZ MD DATE: 10/03/16 7745 Labs Labs Laboratory Tests Test 10/05/16 07:44 10/05/16 09:55 10/05/16 11:54 10/05/16 16:07 Glucose (Fingerstick) 75 mg/dL (70-99) 97 mg/dL (70-99) 102 mg/dL (70-99) 79 mg/dL (70-99) Test 10/05/16 20:44 10/06/16 05:00 10/06/16 08:06 10/06/16 11:05 Glucose (Fingerstick) 109 mg/dL (70-99) 78 mg/dL (70-99) 122 mg/dL (70-99) White Blood Count 8.7 x10^3/uL (4.0-11.0) Red Blood Count 3.47 x10^6/uL (4.30-5.70) Hemoglobin 9.1 g/dL (13.0-17.5) Hematocrit 28.2 % (39.0-53.0) Mean Corpuscular Volume 81 fL (79-100) Mean Corpuscular Hemoglobin 26 pg (25-35) Mean Corpuscular Hemoglobin Concent 32 g/dL (31-37) Red Cell Distribution Width 17.1 % (11.5-14.5) Platelet Count 480 x10^3/uL (140-400) Neutrophils (%) (Auto) 60 % (31-73) Lymphocytes (%) (Auto) 26 % (24-48) Monocytes (%) (Auto) 10 % (0-9) Eosinophils (%) (Auto) 4 % (0-3) Basophils (%) (Auto) 1 % (0-3) Neutrophils # (Auto) 5.2 x10^3uL (1.8-7.7) Lymphocytes # (Auto) 2.3 x10^3/uL (1.0-4.8) Monocytes # (Auto) 0.8 x10^3/uL (0.0-1.1) Eosinophils # (Auto) 0.3 x10^3/uL (0.0-0.7) Basophils # (Auto) 0.1 x10^3/uL (0.0-0.2) Sodium Level 139 mmol/L (136-145) Potassium Level 4.1 mmol/L (3.5-5.1) Chloride Level 107 mmol/L (98-107) Carbon Dioxide Level 25 mmol/L (21-32) Anion Gap 7 (6-14) Blood Urea Nitrogen 14 mg/dL (8-26) Creatinine 1.0 mg/dL (0.7-1.3) Estimated GFR (Cockcroft-Gault) 73.5 Glucose Level 86 mg/dL (70-99) Calcium Level 7.8 mg/dL (8.5-10.1) Test 10/06/16 16:03 10/06/16 21:02 10/07/16 04:10 10/07/16 08:08 Glucose (Fingerstick) 66 mg/dL (70-99) 130 mg/dL (70-99) 96 mg/dL (70-99) White Blood Count 8.0 x10^3/uL (4.0-11.0) Red Blood Count 3.74 x10^6/uL (4.30-5.70) Hemoglobin 9.6 g/dL (13.0-17.5) Hematocrit 30.1 % (39.0-53.0) Mean Corpuscular Volume 80 fL (79-100) Mean Corpuscular Hemoglobin 26 pg (25-35) Mean Corpuscular Hemoglobin Concent 32 g/dL (31-37) Red Cell Distribution Width 17.6 % (11.5-14.5) Platelet Count 513 x10^3/uL (140-400) Neutrophils (%) (Auto) 60 % (31-73) Lymphocytes (%) (Auto) 27 % (24-48) Monocytes (%) (Auto) 9 % (0-9) Eosinophils (%) (Auto) 3 % (0-3) Basophils (%) (Auto) 1 % (0-3) Neutrophils # (Auto) 4.8 x10^3uL (1.8-7.7) Lymphocytes # (Auto) 2.1 x10^3/uL (1.0-4.8) Monocytes # (Auto) 0.7 x10^3/uL (0.0-1.1) Eosinophils # (Auto) 0.3 x10^3/uL (0.0-0.7) Basophils # (Auto) 0.1 x10^3/uL (0.0-0.2) Sodium Level 141 mmol/L (136-145) Potassium Level 4.4 mmol/L (3.5-5.1) Chloride Level 109 mmol/L (98-107) Carbon Dioxide Level 26 mmol/L (21-32) Anion Gap 6 (6-14) Blood Urea Nitrogen 15 mg/dL (8-26) Creatinine 1.1 mg/dL (0.7-1.3) Estimated GFR (Cockcroft-Gault) 65.8 Glucose Level 115 mg/dL (70-99) Calcium Level 8.3 mg/dL (8.5-10.1) Test 10/07/16 11:17 10/07/16 17:18 10/07/16 20:35 10/08/16 04:04 Glucose (Fingerstick) 99 mg/dL (70-99) 96 mg/dL (70-99) 103 mg/dL (70-99) White Blood Count 7.9 x10^3/uL (4.0-11.0) Red Blood Count 3.82 x10^6/uL (4.30-5.70) Hemoglobin 9.9 g/dL (13.0-17.5) Hematocrit 31.2 % (39.0-53.0) Mean Corpuscular Volume 82 fL (79-100) Mean Corpuscular Hemoglobin 26 pg (25-35) Mean Corpuscular Hemoglobin Concent 32 g/dL (31-37) Red Cell Distribution Width 17.4 % (11.5-14.5) Platelet Count 509 x10^3/uL (140-400) Neutrophils (%) (Auto) 57 % (31-73) Lymphocytes (%) (Auto) 29 % (24-48) Monocytes (%) (Auto) 8 % (0-9) Eosinophils (%) (Auto) 5 % (0-3) Basophils (%) (Auto) 2 % (0-3) Neutrophils # (Auto) 4.5 x10^3uL (1.8-7.7) Lymphocytes # (Auto) 2.3 x10^3/uL (1.0-4.8) Monocytes # (Auto) 0.6 x10^3/uL (0.0-1.1) Eosinophils # (Auto) 0.4 x10^3/uL (0.0-0.7) Basophils # (Auto) 0.1 x10^3/uL (0.0-0.2) Sodium Level 139 mmol/L (136-145) Potassium Level 3.9 mmol/L (3.5-5.1) Chloride Level 107 mmol/L (98-107) Carbon Dioxide Level 22 mmol/L (21-32) Anion Gap 10 (6-14) Blood Urea Nitrogen 15 mg/dL (8-26) Creatinine 1.0 mg/dL (0.7-1.3) Estimated GFR (Cockcroft-Gault) 73.5 Glucose Level 94 mg/dL (70-99) Calcium Level 8.4 mg/dL (8.5-10.1) Magnesium Level 1.6 mg/dL (1.8-2.4) Medications Medications Medications reviewed and reconciled for discharge. Brief hospital course Brief hospital course This 70 year old male who presented with chest pain was admitted. The following is a summary of his treatment: chest pain/abnormal troponin-secondary to SVT cardiology consult ASA 325mg ED Chronic ASA 325mg daily -decreased to 81mg daily resolved SVT h/o AF Pradaxa since admission monitor HH -- GIB adenosine in ED-resolved SVT Mg 1.6 TSH normal last admit Dig 125mcg started 10/03/16 Metoprolol tart 12.5mg bid prn -will add parameter to hold if SBP <110 or HR <55 bacteremia with sepsis leukocytosis low grade temp UA negative Rocephin IV x 1 BC +enterococcus facialis CXR essentially negative Vanco 1.25mg IV x 1 DC 10/05 Invanz IV daily -DC 10/04 Meropenem IV 10/04 started Augmentin initiated 10/07- mild upper airway wheezing-staff advised to monitor. low grade 99.1-99.2F through night If augmentin DC, discharge meds will need updated. DM II FSBS/SSI resume home meds BS 96-103 CHF Zaroxlyn 2.5mg every other day-currently on hold along with K replacement. daily wt IO Admit wt 186.19 10/08 179.06 ECHO 10/03 EF 55-60% Anemia FE deficiency/with h/o GIB Admit Hgb 10.1 10/08 9.9 bleed scan last admit negative monitor CKD III/hypomagnesia Admit BUN 17 10/08 15 Cr 1.3 1.0 K 4.3 3.9 Mg 1.6 10/04 2.0 10/08 1.6 Mg not treated, recheck and replacement orders placed-orders stopped 10/04 increase Mg Ox to 400mg tid, re eval in AM DVT/GI prophylaxis SCD/GALINA PPI Hypotension improved BPs 90s systolic For more details regarding the past history, family history, social history, surgical history and other details, please refer to History and Physical. He will be discharged to [facility]. Please see DC orders. Subjective no chest pain or palpitations through night auditory wheezing upper airway Objective alert no distress Vitals Vital Signs Date Time Temp Pulse Resp B/P (MAP) Pulse Ox O2 Delivery O2 Flow Rate FiO2 10/08/16 03:08 98.5 70 16 89/56 (67) 97 Room Air 98.5 10/07/16 08:00 2.0 Physical Exam General appearance - alert, chronically ill appearing, and in no distress Mental Status - alert, oriented to person, place, and time, affect appropriate to mood Head - normal Chest - clear to auscultation, wheezing upper airway auditory Heart - S1 and S2 normal Abdomen - soft, nontender, nondistended, no masses or organomegaly Neurological - no acute focal neurological deficits noted. 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 Musculoskeletal - no muscular tenderness noted Extremities - no pedal edema Skin - warm and dry Medications Medications reviewed. Allergy Allergies Coded Allergies Type Severity Reaction Last Updated Verified Penicillins Allergy Intermediate Rash 06/25/16 Yes Follow up Admit to facility Disposition: Home (Alf ) Comments Discharge Management - 35 minutes. For other details please refer to discharge instructions MERVAT MORE MD 10/08/16 1033: IM DISCHARGE & PROGRESS NOTES Brief hospital course Brief hospital course D/w . No need for IV Magnesium.continue oral; Magnesium. The patient was seen and examined by me. Chart reviewed and plan of care formulated. Discussed with, reviewed and agree with [facility]'s notes, plan of care and orders with modifications as necessary. Discharge Management - 35 minutes. EFRA CARRASQUILLO APRN Oct 08, 2016 06:56 MERVAT MORE MD Oct 08, 2016 10:33
--- NOTE | 2016-10-08 06:59 | DISCH ---
DISCHARGE FINAL DIAGNOSIS Problems Medical Problems: (1) Chest pain Status: Acute (2) Elevated troponin Status: Acute (3) Sepsis Status: Acute (4) SVT (supraventricular tachycardia) Status: Acute CONDITION ON DISCHARGE: Stable POST DISCHARGE ORDERS ACTIVITY ORDERS: Activity as tolerated WEIGHT BEARING STATUS: As tolerated DIET AFTER DISCHARGE: Cardiac CHECKS AFTER DISCHARGE CHECKS AFTER DISCHARGE: Check blood sugar, ac/hs COMMENTS: VS daily FOLLOW-UP PHYSICIAN FOLLOW-UP: Admit to facility MD LAB ORDERS FOR FOLLOW-UP: CBC with diff, CMP, Mg, Pre albumin in AM TREATMENT/EQUIPMENT ORDERS ADAPTIVE EQUIPMENT NEEDED: Wheelchair RESPIRATORY EQUIPMENT NEEDED: Oxygen (2L prn to maintain Sat >90% and or shortness of breath), Nebulizer (BID and prn ) EFRA CARRASQUILLO APRN Oct 08, 2016 06:58
[2016-10-08 07:00] VITALS: BP 95/55
[2016-10-08] MEDS ORDERED: DIGO125T PO (07:03)
[2016-10-08] MEDS ORDERED: MAGN400T22 PO (07:03)
[2016-10-08] MEDS ORDERED: AMOX1TAB11 PO (07:03)
[2016-10-08] MEDS ORDERED: ASPI-612 PO (07:03)
[2016-10-08] MEDS ORDERED: MAGNESIUM SULFATE 2GM 50 ML IV ONE (07:30)
[2016-10-08] MEDS: IPRATRPIUM/ALBUTEROL 0.5/2.5MG 3 ML NEBU. IH SCH ×2 (07:56→16:23)
[2016-10-08] MEDS: INSULIN ASPART 300 UNITS/3 ML INSULN.PEN SQ SCH ×3 (08:00→17:00)
[2016-10-08] MEDS: ANTI-COAG MONITOR BY PHARMACY. MC PRN (08:01)
[2016-10-08] MEDS: DABIGATRAN ETEXILATE 150 MG CAPSULE. PO SCH (08:18)
[2016-10-08] MEDS: DIVALPROEX SPRINKLES 125 MG CAPSULE. PO SCH (08:18)
[2016-10-08] MEDS: OMEGA-3 FATTY ACIDS/FISH OIL 1,000 MG CAPSULE. PO SCH (08:19)
[2016-10-08] MEDS: METOCLOPRAMIDE 5 MG TABLET. PO SCH (08:19)
[2016-10-08] MEDS: MULTIVITAMIN with MINERAL TABLET. PO SCH (08:19)
[2016-10-08] MEDS: VITAMIN B COMPLEX TABLET. PO SCH (08:19)
[2016-10-08] MEDS: CHOLECALCIFEROL (VITAMIN D3) 5,000 UNIT CAPSULE PO SCH (08:19)
[2016-10-08] MEDS: DIGOXIN 125 MCG TABLET. PO SCH (08:19)
[2016-10-08] MEDS: LEVOTHYROXINE 50 MCG TABLET PO SCH (08:20)
[2016-10-08] MEDS: SPIRONOLACTONE 25 MG TABLET PO SCH (08:20)
[2016-10-08] MEDS: AMOXICILLIN/K CLAV 875/125MG TABLET. PO SCH (08:20)
[2016-10-08] MEDS: MAGNESIUM OXIDE 400 MG TABLET PO SCH ×2 (08:20→14:00)
[2016-10-08] MEDS: ASPIRIN ENTERIC COATED 81 MG TABLET.DR. PO SCH (08:20)
[2016-10-08] MEDS: buPROPion 100 MG TABLET PO SCH (08:20)
[2016-10-08] MEDS: FERROUS SULFATE 325 MG TABLET. PO SCH (08:20)
[2016-10-08] MEDS: SENNOSIDES 8.6 MG TABLET PO SCH (08:21)
[2016-10-08] MEDS: NYSTATIN TOPICAL POWDER 15GM BOTTLE. TP SCH (08:21)
[2016-10-08] MEDS: PANTOPRAZOLE 40 MG TABLET.DR. PO SCH (08:21)
--- NOTE | 2016-10-08 09:44 | PDOC ---
Infectious Disease Note Subjective Subjective Comfortable, denies pain or upset stomach Wants to go home No fever or diarrhea ROS ROS GEN: Denies fevers, chills, sweats HEENT: Denies blurred vision, sore throat CV: Denies chest pain RESP: Denies shortness of air, cough GI: Denies n/v/d NEURO: Denies confusion, dizziness MSK: Denies weakness, joint pain/swelling Vital Sign Vital Signs Vital Signs Date Time Temp Pulse Resp B/P (MAP) Pulse Ox O2 Delivery O2 Flow Rate FiO2 10/08/16 08:19 75 95/55 10/08/16 08:05 Room Air 10/08/16 07:57 97 10/08/16 07:00 97.8 19 97.8 10/07/16 08:00 2.0 Physical Exam PHYSICAL EXAM GENERAL: Sitting up, NAD, looks well HEENT: Oral cavity pink, edentulous LUNGS: Clear anteriorly, nonlabored HEART: S1S2 ABD: Soft, NT, BS present EXT: BLE trace edema. No cyanosis. contractures KAITARA TARAKA: Alert, follows commands SKIN: No rash IV: ok Labs Lab Laboratory Tests Test 10/07/16 11:17 10/07/16 17:18 10/07/16 20:35 10/08/16 04:04 Glucose (Fingerstick) 99 mg/dL (70-99) 96 mg/dL (70-99) 103 mg/dL (70-99) White Blood Count 7.9 x10^3/uL (4.0-11.0) Red Blood Count 3.82 x10^6/uL (4.30-5.70) Hemoglobin 9.9 g/dL (13.0-17.5) Hematocrit 31.2 % (39.0-53.0) Mean Corpuscular Volume 82 fL (79-100) Mean Corpuscular Hemoglobin 26 pg (25-35) Mean Corpuscular Hemoglobin Concent 32 g/dL (31-37) Red Cell Distribution Width 17.4 % (11.5-14.5) Platelet Count 509 x10^3/uL (140-400) Neutrophils (%) (Auto) 57 % (31-73) Lymphocytes (%) (Auto) 29 % (24-48) Monocytes (%) (Auto) 8 % (0-9) Eosinophils (%) (Auto) 5 % (0-3) Basophils (%) (Auto) 2 % (0-3) Neutrophils # (Auto) 4.5 x10^3uL (1.8-7.7) Lymphocytes # (Auto) 2.3 x10^3/uL (1.0-4.8) Monocytes # (Auto) 0.6 x10^3/uL (0.0-1.1) Eosinophils # (Auto) 0.4 x10^3/uL (0.0-0.7) Basophils # (Auto) 0.1 x10^3/uL (0.0-0.2) Sodium Level 139 mmol/L (136-145) Potassium Level 3.9 mmol/L (3.5-5.1) Chloride Level 107 mmol/L (98-107) Carbon Dioxide Level 22 mmol/L (21-32) Anion Gap 10 (6-14) Blood Urea Nitrogen 15 mg/dL (8-26) Creatinine 1.0 mg/dL (0.7-1.3) Estimated GFR (Cockcroft-Gault) 73.5 Glucose Level 94 mg/dL (70-99) Calcium Level 8.4 mg/dL (8.5-10.1) Magnesium Level 1.6 mg/dL (1.8-2.4) Objective Assessment Polymicrobial bacteremia, origin is unclear. GNR and GPC. Final report (amended ) Enterococcus-PCN S from 10/02. POA. TTE neg. Looks great ? Contamination. / bottles CVA Cerebrovascular accident. Supraventricular tachycardia with rapid ventricular rate. Diabetes. Hypertension. Plan Plan of Care Augmentin through 10/12 JEFFREY GOODEN MD Oct 08, 2016 09:44
[2016-10-08 11:00] VITALS: BP 99/59
[2016-10-08 15:00] VITALS: BP 111/69
== END 2016-10-08 19:30 | DRG 872 ==
LOC: ER 22:44 → 2 SOUTH 23:31
PROVIDERS: ADMIT Internal Medicine; ATTEND Internal Medicine
DX: A41.81 Sepsis due to Enterococcus (principal); I47.1 Supraventricular tachycardia; I50.32 Chronic diastolic (congestive) heart failure; I13.0 Hypertensive heart and chronic kidney disease with heart failure and stage 1 through stage 4 chronic kidney disease, or unspecified chronic kidney disease; R47.01 Aphasia; E44.0 Moderate protein-calorie malnutrition; I31.3 Pericardial effusion (noninflammatory); J98.11 Atelectasis; I48.0 Paroxysmal atrial fibrillation; I25.10 Atherosclerotic heart disease of native coronary artery without angina pectoris; J44.9 Chronic obstructive pulmonary disease, unspecified; K57.90 Diverticulosis of intestine, part unspecified, without perforation or abscess without bleeding; K21.9 Gastro-esophageal reflux disease without esophagitis; F41.1 Generalized anxiety disorder; F32.9 Major depressive disorder, single episode, unspecified; N18.3 Chronic kidney disease, stage 3 (moderate); E11.22 Type 2 diabetes mellitus with diabetic chronic kidney disease; E03.9 Hypothyroidism, unspecified; E11.51 Type 2 diabetes mellitus with diabetic peripheral angiopathy without gangrene; E78.5 Hyperlipidemia, unspecified; K64.8 Other hemorrhoids; M06.9 Rheumatoid arthritis, unspecified; D50.9 Iron deficiency anemia, unspecified; E83.42 Hypomagnesemia; K29.70 Gastritis, unspecified, without bleeding; Z82.49 Family history of ischemic heart disease and other diseases of the circulatory system; Z88.0 Allergy status to penicillin; Z86.73 Personal history of transient ischemic attack (TIA), and cerebral infarction without residual deficits; Z86.711 Personal history of pulmonary embolism; Z68.26 Body mass index [BMI] 26.0-26.9, adult; Z99.3 Dependence on wheelchair; I25.2 Old myocardial infarction; J45.909 Unspecified asthma, uncomplicated
CPT/HCPCS: 36415; 71010; 74177; 80047; 80048; 80053; 81001; 82550; 82962; 83605; 83690; 83735; 83880; 84443; 84484; 85027; 85610; 85730; 87040; 87205; 87641; 93005; 93306; 94640; 94760; 96361; 96374; C1887; J0153; J0690; J1335; J1815; J2185; J3370; J7030; J7040; J7050; J7060; J7620; J8597; Q9966; Q9967; 99291-25

== ENCOUNTER 2017-10-03 07:35 | Emergency (ER) | payer MEDICARE, OTHER ==
[2017-10-03 08:03] LABS: BASO # 0.2 x10^3/uL (0.0-0.2); BASO % 1 % (0-3); EOS # 0.5 x10^3/uL (0.0-0.7); EOS % 3 % (0-3); HEMATOCRIT 42.1 % (39.0-53.0); HEMOGLOBIN 12.9 g/dL (13.0-17.5); LYMPH # 8.1 x10^3/uL (1.0-4.8); LYMPH % 57 % (24-48); MEAN CORPUSCULAR HEMOGLOBIN 28 pg (25-35); MEAN CORPUSCULAR HGB CONC 31 g/dL (31-37); MEAN CORPUSCULAR VOLUME 92 fL (79-100); MONO # 0.7 x10^3/uL (0.0-1.1); MONO % 5 % (0-9); NEUT # 4.9 x10^3uL (1.8-7.7); NEUT % 34 % (31-73); PLATELET COUNT 210 x10^3/uL (140-400); RED BLOOD COUNT 4.57 x10^6/uL (4.30-5.70); WHITE BLOOD COUNT 14.4 x10^3/uL (4.0-11.0)
[2017-10-03 08:05] LABS: TROPONIN BY ISTAT 0.11 ng/ml (<0.08)
[2017-10-03 08:11] LABS: ANION GAP 23 (6-14); BLOOD UREA NITROGEN 24 mg/dL (8-26); CALCIUM 9.3 mg/dL (8.5-10.1); CARBON DIOXIDE 15 mmol/L (21-32); CHLORIDE 105 mmol/L (98-107); GFR 39.8; GLUCOSE 360 mg/dL (70-99); SODIUM 143 mmol/L (136-145)
[2017-10-03] MEDS ORDERED: NOREPINEPHRIN 8MG/250ML PREMIX 250 ML IV (08:12)
[2017-10-03 08:18] LABS: ADD MAN DIFF? YES
[2017-10-03 08:24] LABS: NT-PRO BNP 963 pg/mL (0-124)
[2017-10-03 08:31] LABS: TROPONINI 0.159 ng/mL (0.000-0.055)
[2017-10-03 08:47] LABS: LACTIC ACID 19.4 mmol/L (0.4-2.0)
[2017-10-03 09:02] LABS: PROCALCITONIN 0.19 ng/mL (0.00-0.10)
[2017-10-03] MEDS ORDERED: SUCCINYLCHOLINE 200 MG/10 ML VIAL. (10:35)
[2017-10-03 10:39] LABS: % BASOS 2 % (0-3); % EOS 4 % (0-5); % LYMPHS 82 % (24-48); % MONOS 1 % (0-10); % MYELOS 1 % (0-0); % SEGS 10 % (35-66)
[2017-10-03 10:40] LABS: PLT ESTIMATE ADEQUATE (ADEQUATE); SMUDGE CELLS PRESENT
[2017-10-03 11:24] LABS: AGAP ISTAT 25 mmol/L (6-14); BUN ISTAT 30 mg/dL (8-26); CHLORIDE ISTAT 110 mmol/L (98-110); CREATININE ISTAT 1.9 mg/dL (0.5-1.4); GLUCOSE ISTAT 143 mg/dL (70-99); HEMATOCRIT ISTAT 38 % (37-52); HEMOGLOBIN ISTAT 12.9 g/dL (14-18); ION CA ISTAT 1.15 mmol/L (1.13-1.32); POTASSIUM ISTAT 4.2 mmol/L (3.5-5.0); SODIUM ISTAT 147 mmol/L (135-145); TOT CO2 ISTAT 18 mmol/L (23-32)
[2017-10-03] MEDS ORDERED: EPINEPHrine VIAL 30 MG/30 ML VIAL (18:00)
[2017-10-03] MEDS ORDERED: CALCIUM CHLORIDE 1,000 MG/10 ML DISP.SYRIN (18:00)
[2017-10-03] MEDS ORDERED: 0.9 % SODIUM CHLORIDE 10 ML DISP.SYRIN. (18:00)
[2017-10-03] MEDS ORDERED: SODIUM BICARB ADULT 8.4% 50 MEQ/50 ML DISP.SYRIN. (18:00)
[2017-10-03] MEDS ORDERED: EPINEPHrine SYRINGE 1 MG/10 ML SYRINGE (18:00)
== END 2017-10-03 10:33 | disposition expired ==
LOC: ER 07:35
DX: I46.9 Cardiac arrest, cause unspecified (principal); I11.0 Hypertensive heart disease with heart failure; I50.9 Heart failure, unspecified; K21.9 Gastro-esophageal reflux disease without esophagitis; E78.00 Pure hypercholesterolemia, unspecified; I25.10 Atherosclerotic heart disease of native coronary artery without angina pectoris; J44.9 Chronic obstructive pulmonary disease, unspecified; E11.9 Type 2 diabetes mellitus without complications; I73.9 Peripheral vascular disease, unspecified; Z88.0 Allergy status to penicillin
CPT/HCPCS: 31500; 36415; 51702; 80047; 80048; 83605; 83880; 84145; 84484; 85007; 85025; 92950; 93005; 99291-25